=== PATIENT | female | born 1960 | race Caucasian/White ===

== ENCOUNTER 2020-11-24 19:41 | Emergency (ER) | payer BC, SELFPAY ==
--- NOTE | ~2020-11-24 | CT_ITS ---
EXAMINATION: CT abdomen pelvis w con DATE: 11/24/2020 22:51 INDICATION: Right lower quadrant abdominal pain TECHNIQUE: Computed tomography (CT) of the abdomen and pelvis was performed with 100 mL Omnipaque-350 intravenous contrast. Automated exposure control and iterative reconstruction technique were employe d. The dose-length product was 1036.64 mGy-cm. COMPARISON: 07/16/2014 FINDINGS: Mild atelectasis/scarring in the medial right middle lobe. Heart size is normal. No pericardial or pl eural effusion. Diffuse hepatic steatosis. No interval change in a 7 mm low-attenuation likely cyst i n the left hepatic lobe. Cholecystectomy clips at the gallbladder fossa. Spleen, pancreas, bilateral adrenal glands are normal. Regions of mild cortical scarring at both kidneys. Bilateral nonobstructin g nephrolithiasis including 7 stones in the left kidney, the largest measuring up to 4 mm, a 6 mm and 2 mm stones at the lower pole calyx of the right kidney and a couple additional small calcification at the periphery of a 2.1 cm cyst at the lower pole of the right kidney. There are few additional sma ller bilateral low-attenuation renal cysts. No hydronephrosis. Ureters and bladder are normal. Bowels including the appendix are normal. Small fat-containing umbilical hernia. Anteverted uterus and bila teral adnexa are unremarkable. No free intraperitoneal gas or fluid. No pathologically enlarged abdom inal or pelvic lymphadenopathy. Mild to moderate lumbar spondylosis. IMPRESSION: 1. No acute intra-abdominal/pelvic process. Normal appendix. 2. Bilateral nonobstructing nephrolithiasis. 3. Diffuse hepatic steatosis. Reviewed, dictated and finalized at location A.
[2020-11-24 19:43] VITALS: BP 151/114; PULSE 87; RESP 18; TEMP 36.8; O2SAT 100
[2020-11-24 20:46] LABS: Add Urine Microscopic? YES; Appearance Urine Clear (Clear); Bilirubin Urine Negative (Negative); Blood Urine Negative (Negative); Color Urine Yellow (Yellow); Glucose Urine UA Negative (Negative); Ketones Urine Negative (Negative); Leukocyte Esterase Ur Negative LEU/UL (Negative); Mucus Urine Rare /lpf; Nitrate Urine Negative (Negative); Protein Urine 1+ mg/dL (Negative); RBC Urine 0-2 /hpf (0-2); Specific Grav Ur 1.021 (1.001-1.035); Squamous Epithelial Cell Urine Rare /hpf (Few); Urobilinogen Urine Negative mg/dL (<2.0); WBC Urine 0-3 /hpf
[2020-11-24 20:49] LABS: Alanine Aminotransferase 50 U/L (4-35); Albumin Level 4.7 g/dL (3.5-5.1); Alkaline Phosphatase 137 U/L (38-126); Anion Gap 6 mmol/L (8-16); Aspartate Amino Transferase 53 U/L (14-36); Basophils Absolute Auto 0.1 K/mm3 (0.0-0.1); Basophils Percent Auto 0.9 % (0.2-1.2); Bilirubin,Total 0.5 mg/dL (0.2-1.3); Blood Urea Nitrogen 11 mg/dL (7-17); Calcium 9.5 mg/dL (8.4-10.2); Carbon Dioxide 35 mmol/L (22-30); Chloride 101 mmol/L (98-107); Eosinophils Absolute Auto 0.1 K/mm3 (0-0.3); Eosinophils Percent Auto 1.6 % (0-4.4); Estimated Glomerular Filt Rate > 60; Glucose 155 mg/dL (65-105); Hematocrit 46.2 % (37.0-47.0); Hemoglobin 15.4 g/dL (12.0-15.0); Immature Granulocyte Absolute 0.01 K/mm3 (0.00-0.031); Immature Granulocyte Percent A 0.2 % (0-0.5); Lipase 169 U/L (23-300); Lymphocytes Absolute Auto 1.59 K/mm3 (0.9-3.2); Lymphocytes Percent Auto 29.1 % (18.3-44.2); Mean Corpuscular HGB Conc 33.3 g/dl (32-36); Mean Corpuscular Hemoglobin 30.3 pg (26-34); Mean Corpuscular Volume 90.9 fl (80-100); Mean Platelet Volume 8.8 fl (7.4-10.4); Monocytes Absolute Auto 0.6 K/mm3 (0.1-0.6); Monocytes Percent Auto 11.4 % (2.6-8.5); Neutrophils Absolute Auto 3.1 K/mm3 (1.3-6.7); Neutrophils Percent Auto 56.8 % (45.5-73.1); Platelet Count Result 283 k/mm3 (150-375); Potassium 3.9 mmol/L (3.4-5.0); Red Blood Count 5.08 M/mm3 (4.2-5.4); Red Cell Distribution Width 12.9 % (11.5-14.5); Sodium 142 mmol/L (137-145); White Blood Count 5.5 K/mm3 (4.5-10.0)
[2020-11-24 21:52] VITALS: BP 178/85; PULSE 84; RESP 20; TEMP 36.8; O2SAT 99
[2020-11-24] MEDS: SODIUM CHLORIDE 0.9% IV 1,000 ML 999 ML IV CONT (22:19)
[2020-11-24] MEDS: ONDANSETRON INJ 4 MG/2 ML VIAL IV PUSH (22:20)
[2020-11-24 22:24] VITALS: BP 181/93; PULSE 79; RESP 12; O2SAT 100
--- NOTE | 2020-11-24 23:35 | ED.GENADULT ---
HPI - General Adult General Chief complaint: Abdominal Pain Stated complaint: right lower quadrant pain Time Seen by Provider: 11/24/20 21:35 History of Present Illness HPI narrative: Patient is a 60-year-old female presents to emergency department with chief complaint of right lower quadrant abdominal pain. The patient reports that the pain started approximately at midnight last night patient states that it is a little bit worse with movement not improved by anything patient reports a little bit of nausea no diarrhea no vomiting. Related Data Home Medications Medication Instructions Recorded Confirmed paroxetine HCl 20 mg tablet 20 mg PO DAILY 12/20/19 10/30/20 Allergies Allergy/AdvReac Type Severity Reaction Status Date / Time nitrofurantoin Allergy Mild rash Verified 10/30/20 08:02 prochlorperazine Allergy Mild Unknown Verified 10/30/20 08:02 Review of Systems Review of Systems: Narrative: A 10 system review of systems was completed on the patient and is negative except for what is stated in the HPI. Nursing and ancillary documentation was reviewed. 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 HEAD: Normocephalic, atraumatic. EYES: PERRLA and EOMI. ENT: Nares clear, no rhinorrhea or epistaxis. Mucous membranes moist. NECK: Supple. CHEST: Clear to auscultation. No respiratory distress. HEART: Regular rate and rhythm. No murmur heard. Normal peripheral pulses. ABDOMEN: Soft, nontender, nondistended, normal active bowel sounds. EXTREMITIES: Normal range of motion. No edema. SKIN: Warm, dry, no rash. NEURO: No focal deficits. Alert and oriented x3. PSYCH: Normal mood and affect. Course Course Emergency Course: Patient CT scan showed no evidence of acute abdomen Vital Signs Vital signs: Vital Signs Temperature 36.8 C 11/24/20 19:43 Pulse Rate 87 11/24/20 19:43 Respiratory Rate 18 11/24/20 19:43 Blood Pressure 151/114 H 11/24/20 19:43 Pulse Oximetry 100 11/24/20 19:43 Temperature 36.8 C 11/24/20 21:52 Pulse Rate 79 11/24/20 22:24 Respiratory Rate 12 11/24/20 22:24 Blood Pressure 181/93 H 11/24/20 22:24 Pulse Oximetry 100 11/24/20 22:24 Medical Decision Making Vital Signs Vital Signs: Vital Signs Temperature 36.8 C 11/24/20 19:43 Pulse Rate 87 11/24/20 19:43 Respiratory Rate 18 11/24/20 19:43 Blood Pressure 151/114 H 11/24/20 19:43 Pulse Oximetry 100 11/24/20 19:43 Temperature 36.8 C 11/24/20 21:52 Pulse Rate 79 11/24/20 22:24 Respiratory Rate 12 11/24/20 22:24 Blood Pressure 181/93 H 11/24/20 22:24 Pulse Oximetry 100 11/24/20 22:24 Lab Data Result diagrams: 11/24/20 20:30 11/24/20 20:30 Labs: Lab Results 11/24/20 11/24/20 11/24/20 Range/Units 20:30 20:30 20:35 WBC 5.5 (4.5-10.0) K/mm3 RBC 5.08 (4.2-5.4) M/mm3 Hgb 15.4 H (12.0-15.0) g/dL Hct 46.2 (37.0-47.0) % MCV 90.9 (80-100) fl MCH 30.3 (26-34) pg MCHC 33.3 (32-36) g/dl RDW 12
[2020-11-24 23:40] VITALS: BP 125/74; PULSE 84; RESP 13; O2SAT 96
== END 2020-11-24 23:40 | disposition home or self-care (01) ==
PROVIDERS: Emergency Medicine; Emergency Provider Emergency Medicine; PCP Family Medicine
DX: R10.31 Right lower quadrant pain (principal)
CPT/HCPCS: 36415; 74177; 80053; 81001; 83690; 85025; 96361; 96374; 99284; J2405; J7030; Q9967

== ENCOUNTER 2021-04-03 01:40 | Day surgery (SDC) | payer BC, SELFPAY ==
[2021-03-25 14:19] VITALS: BMI 30.8
[2021-04-03 06:38] VITALS: BP 133/51; PULSE 75; RESP 18; TEMP 36.1; O2SAT 100; BMI 31.1
[2021-04-03] MEDS: LACTATED RINGERS 1,000 ML 150 ML IV CONT (06:53)
[2021-04-03 06:56] LABS: Glucose Point of Care 190 mg/dl (65-105)
--- NOTE | 2021-04-03 07:09 | WPDANESEPPF ---
Anes - Initial Pre Proc Eval Procedure: Operation Date: 04/03/21 07:30 Proposed Procedures p Screening Colonoscopy - Robles Carcamo MD Date/Time: 04/03/21 07:09 Surgeon: Robles Carcamo MD Pre Op Diagnosis: neoplasm screening Patient Data Age: 60 Gender: F Height: 1.65 m Weight: 84.8 kg Last Vital Signs Temp 97 F L 04/03/21 06:38 Pulse 75 04/03/21 06:38 Resp 18 04/03/21 06:38 BP 133/51 L 04/03/21 06:38 Pulse Ox 100 04/03/21 06:38 Allergies Allergy/AdvReac Type Severity Reaction Status Date / Time nitrofurantoin Allergy Mild rash Verified 04/03/21 06:36 prochlorperazine Allergy Mild Unknown Verified 04/03/21 06:36 Home Medications Medication Instructions Recorded Confirmed Type paroxetine HCl 20 mg tablet 20 mg PO DAILY 12/20/19 04/03/21 History meloxicam 15 mg tablet 15 mg PO DAILY #90 tablet 05/05/20 04/03/21 Rx propranolol 120 mg capsule,24 120 mg PO DAILY #90 cap 12/29/20 04/03/21 Rx hr,extended release metformin 500 mg tablet,extended See Rx Instructions .ROUTE 01/19/21 04/03/21 Rx release 24 hr .COMPLEX #180 tablet simvastatin 40 mg tablet 40 mg PO DAILY #90 tablet 03/11/21 04/03/21 Rx zolpidem 5 mg tablet 5 mg PO .QHS #30 tablet 03/23/21 03/25/21 Rx iron 1 tablet PO DAILY 03/25/21 03/25/21 History multivitamin 1 tablet PO DAILY 03/25/21 04/03/21 History risankizumab-rzaa [Skyrizi] 150 mg SUBCUT Q3M 03/25/21 03/25/21 History sumatriptan succinate See Rx Instructions PO .COMPLEX PRN 03/25/21 03/25/21 History Laboratory Tests 04/03/21 06:49 POC Capillary Glucose 190 mg/dl H mg/dl (65-105) Patient hx anesthesia problems: none Family hx anesthesia problems: none PMFSH Past Medical History Medical History Acute arthritis BMI 31.0-31.9,adult Diabetes Diabetes Family History Family History Father Hypertension Acute myocardial infarction Mother Hypertension Cerebrovascular accident Family history of diabetes mellitus in first degree relative Family history of malignant neoplasm of breast in first degree relative Acute myocardial infarction Sibling Family history of Hodgkin's lymphoma Social History Social History Smoking status: Never smoker Second hand tobacco smoke exposure: No Alcohol intake: never Substance use: never Substance use type: does not use Living arrangements: with family 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 Questions were solicited and answers provided to the satisfaction of the patient/family/POA.
--- NOTE | 2021-04-03 07:24 | P.HP_ITS ---
History of Present Illness History of Present Illness Consent: Risks, benefits, and alternatives have been discussed and questions answered. Patient agrees to proceed with procedure. Chief complaint: neoplasm screening Narrative: Marce Loyd is a 60 year old female referred for colon cancer screening. Her last colonoscopy was about 10 years ago Review of Systems Review of Systems: All systems reviewed & are unremarkable except as noted in HPI and below PMFSH Past Medical History Medical History Acute arthritis BMI 31.0-31.9,adult Diabetes Diabetes Family History Family History Father Hypertension Acute myocardial infarction Mother Hypertension Cerebrovascular accident Family history of diabetes mellitus in first degree relative Family history of malignant neoplasm of breast in first degree relative Acute myocardial infarction Sibling Family history of Hodgkin's lymphoma Social History Social History Smoking status: Never smoker Second hand tobacco smoke exposure: No Alcohol intake: never Substance use: never Substance use type: does not use Living arrangements: with family 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 Spiritual care concerns: No Meds Home Medications and Allergies Home Medications Medication Instructions Recorded Confirmed Type paroxetine HCl 20 mg tablet 20 mg PO DAILY 12/20/19 04/03/21 History meloxicam 15 mg tablet 15 mg PO DAILY #90 tablet 05/05/20 04/03/21 Rx propranolol 120 mg capsule,24 120 mg PO DAILY #90 cap 12/29/20 04/03/21 Rx hr,extended release metformin 500 mg tablet,extended See Rx Instructions .ROUTE 01/19/21 04/03/21 Rx release 24 hr .COMPLEX #180 tablet simvastatin 40 mg tablet 40 mg PO DAILY #90 tablet 03/11/21 04/03/21 Rx zolpidem 5 mg tablet 5 mg PO .QHS #30 tablet 03/23/21 03/25/21 Rx iron 1 tablet PO DAILY 03/25/21 03/25/21 History multivitamin 1 tablet PO DAILY 03/25/21 04/03/21 History risankizumab-rzaa [Skyrizi] 150 mg SUBCUT Q3M 03/25/21 03/25/21 History sumatriptan succinate See Rx Instructions PO .COMPLEX PRN 03/25/21 03/25/21 History Allergies Allergy/AdvReac Type Severity Reaction Status Date / Time nitrofurantoin Allergy Mild rash Verified 04/03/21 06:36 prochlorperazine Allergy Mild Unknown Verified 04/03/21 06:36 Vital Signs Vital Signs - 24 hr 04/03/21 06:38 Temperature 36.1 C L Pulse Rate 75 Respiratory Rate 18 Blood Pressure 133/51 L Pulse Oximetry 100 Exam Resp: Auscultation: clear to auscultation bilaterally Cardio: Rate: regular rate Rhythm: regular rhythm GI: GI Palp: Yes Soft to palpation and No Tenderness to palpation present (GI) Assessment and Plan Assessment and plan (1) Colon cancer screening: Code(s): Z12.11 - Encounter for screening for malignant neoplasm of colon Status: Acute Assessment and Plan: Colonoscopy with possible biopsy or polypectomy or cautery or injection of substances.
[2021-04-03 07:45] VITALS: BP 91/51; PULSE 68; RESP 16; O2SAT 99
[2021-04-03 07:55] VITALS: BP 112/54; PULSE 75; RESP 18; O2SAT 100
[2021-04-03 08:05] VITALS: BP 124/74; PULSE 78; RESP 16; O2SAT 100
== END 2021-04-03 08:15 | disposition home or self-care (01) ==
PROVIDERS: PCP Family Medicine; Visit Provider Internal Medicine Gastroenterology
PROC: 0DJD8ZZ Inspection of Lower Intestinal Tract, Via Natural or Artificial Opening Endoscopic (ICD-10-PCS; CPT 45378; principal; 2021-04-03 07:30)
DX: Z12.11 Encounter for screening for malignant neoplasm of colon (principal); E11.9 Type 2 diabetes mellitus without complications
CPT/HCPCS: 45380; 82948; 88305; J2704; J7120

== ENCOUNTER 2021-04-22 18:14 | Emergency (ER) | payer BC, SELFPAY ==
[2021-04-22 18:24] VITALS: BP 130/102; PULSE 81; RESP 18; TEMP 36.4; O2SAT 100
--- NOTE | 2021-04-22 18:36 | ED.FEMALEGU ---
HPI - Female Genitourinary General Chief complaint: Urogenital-Female Stated complaint: uti Source: patient and RN notes reviewed Limitations: no limitations History of Present Illness HPI Narrative: The overweight patient, previously on several meds inc for diabetes, presents with urinary symptoms. Patient states she was treated earlier in the year for Proteus UTI, pansensitive [except Macrobid] . She now has shorter 1 day history of urinary frequency and dysuria; no fever, low back pain, blood, vomiting/diarrhea, urgency, vaginal discharge. She has a prior history of left kidney stone with stent intervention; Patient notes this feels different than that. Symptoms are mild, worse with micturition Related Data Home Medications Medication Instructions Recorded Confirmed paroxetine HCl 20 mg tablet 20 mg PO DAILY 12/20/19 04/03/21 Skyrizi 150 mg SUBCUT Q3M 03/25/21 03/25/21 iron 1 tablet PO DAILY 03/25/21 03/25/21 multivitamin 1 tablet PO DAILY 03/25/21 04/03/21 sumatriptan succinate See Rx Instructions PO .COMPLEX PRN 03/25/21 03/25/21 Allergies Allergy/AdvReac Type Severity Reaction Status Date / Time nitrofurantoin Allergy Mild rash Verified 04/03/21 06:36 prochlorperazine Allergy Mild Unknown Verified 04/03/21 06:36 Review of Systems Review of Systems: General/Constitutional: No weight loss,fever Eyes: N0: Redness,discharge Ears/Nose/Throat: No: Epistaxis,ear discharge Respiratory: Denies: Hemoptysis Gastrointestinal: No Vomiting, Bleeding-rectal Skin: No Lumps, eruption Neurologic: No Focal Weakness,Sz Hematologic: Denies: Petechiae/Purpura Psychiatric: No: Suicida ideationl All Other Systems: Reviewed and Negative [facility] Past Medical History Medical History Acute arthritis BMI 31.0-31.9,adult Diabetes Diabetes Family History Family History Father Hypertension Acute myocardial infarction Mother Hypertension Cerebrovascular accident Family history of diabetes mellitus in first degree relative Family history of malignant neoplasm of breast in first degree relative Acute myocardial infarction Sibling Family history of Hodgkin's lymphoma Social History Social History Smoking status: Never smoker Second hand tobacco smoke exposure: No Alcohol intake: never Substance use: never Substance use type: does not use 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 There is no relevant family history pertinent to the presenting complaint Exam Narrative: General Appearance: Well appearing, No distress EYE: PERRLA, Conjunctiva clear Ears: External ear normal Nose: Normal nose Mouth/Throat: Normal appearing, Normal lips Neck: Supple Respiratory: Airway patent, No respiratory distress Cardiovascular: RRR Abdomen: Soft, Non-tender, Musculoskeletal: Full ROM Skin: Warm, Dry Neurological: A&O x3, CN II-X intact Psychiatric: Normal mood, Normal affect Course Vital Signs Vital signs: Vital Signs Temperature 97.5 F L 04/22/21 18:24 Pulse Rate 81 04/22/21 18:24 Respiratory Rate 18 04/22/21 18:24 Blood Pressure 130/102 H 04/22/21 18:24 Pulse Oximetry 100 04/22/21 18:24 Temperature 97.5 F L 04/22/21 18:24 Pulse Rate 81 04/22/21 18:24 Respiratory Rate 18 04/22/21 18:24 Blood Pressure 130/102 H 04/22/21 18:24 Pulse Oximetry 100 04/22/21 18:24 MDM - Female Genitourinary Lab Data Labs: Urine Glucose Negative Reference Range: Negative Urine Bilirubin Negative Reference Ran
== END 2021-04-22 18:43 | disposition home or self-care (01) ==
PROVIDERS: Emergency Provider Emergency Medicine; PCP Family Medicine
DX: N39.0 Urinary tract infection, site not specified (principal); E11.9 Type 2 diabetes mellitus without complications
CPT/HCPCS: 81003; 87077; 87086; 87088; 87186; 99213; G0463

== ENCOUNTER 2021-06-06 16:13 | Emergency (ER) | payer BC, SELFPAY ==
[2021-06-06 16:33] VITALS: BP 153/86; PULSE 83; RESP 18; TEMP 36.3; O2SAT 99
--- NOTE | 2021-06-06 17:06 | ED.FEMALEGU ---
HPI - Female Genitourinary General Chief complaint: Urogenital-Female Stated complaint: UTI Source: patient Mode of arrival: ambulatory Limitations: no limitations History of Present Illness HPI Narrative: Patient is a 60-year-old female who presents complaining of urinary frequency, urgency and dysuria starting this a.m. She reports a history of kidney stones as well as UTIs. She reports last UTI was 6+ months ago. She denies nausea, vomiting, or abdominal pain. She denies all other complaints at this time. MD elicited complaint: UTI Related Data Home Medications Medication Instructions Recorded Confirmed paroxetine HCl 20 mg tablet 20 mg PO DAILY 12/20/19 06/06/21 Skyrizi 150 mg SUBCUT Q3M 03/25/21 06/06/21 iron 1 tablet PO DAILY 03/25/21 06/06/21 multivitamin 1 tablet PO DAILY 03/25/21 06/06/21 Allergies Allergy/AdvReac Type Severity Reaction Status Date / Time nitrofurantoin Allergy Mild rash Verified 06/06/21 16:55 prochlorperazine Allergy Mild Unknown Verified 06/06/21 16:55 Review of Systems Review of Systems: CONSTITUTIONAL: Denies fever, chills, or sweats. EYES: Denies visual changes, redness, or discharge. ENT: Denies rhinorrhea, congestion, sore throat, or otalgia. CARDIOVASCULAR: Denies chest pain, palpitations, or edema. RESPIRATORY: Denies cough or dyspnea. GASTROINTESTINAL: Denies abdominal pain, nausea, vomiting, or diarrhea. GENITOURINARY: Reports dysuria, frequency and urgency SKIN: Denies rash or itching. MUSCULOSKELETAL: Denies back pain, joint pain, or myalgia. NEUROLOGIC: Denies headache, numbness, dizziness, or weakness. PSYCHIATRIC: Denies anxiety or depression. [facility] Past Medical History Medical History Acute arthritis BMI 31.0-31.9,adult Diabetes Diabetes Family History Family History Father Hypertension Acute myocardial infarction Mother Hypertension Cerebrovascular accident Family history of diabetes mellitus in first degree relative Family history of malignant neoplasm of breast in first degree relative Acute myocardial infarction Sibling Family history of Hodgkin's lymphoma Social History Social History Second hand tobacco smoke exposure: No Alcohol intake: never Substance use: never Substance use type: does not use 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 Please see nursing chart for further information. There is no relevant family history pertinent to the presenting complaint. Exam Narrative: GENERAL: Well-appearing, well-nourished, and in no acute distress. HEAD: Normocephalic, atraumatic. EYES: EOMI. No redness or drainage. Conjunctiva are normal. ENT: Mucous membranes pink and moist. CHEST: No respiratory distress. HEART: Regular rate and rhythm. GI: Soft, nontender without rebound, or guarding. EXTREMITIES: Normal range of motion. SKIN: Warm, dry, no rash. NEURO: No focal deficits. Alert and oriented x3. Gait steady. PSYCH: Normal affect. No signs of depression or anxiety. Course Vital Signs Vital signs: Vital Signs Temperature 36.3 C L 06/06/21 16:33 Pulse Rate 83 06/06/21 16:33 Respiratory Rate 18 06/06/21 16:33 Blood Pressure 153/86 H 06/06/21 16:33 Pulse Oximetry 99 06/06/21 16:33 Temperature 36.3 C L 06/06/21 16:33 Pulse Rate 83 06/06/21 16:33 Respiratory Rate 18 06/06/21 16:33 Blood Pressure 153/86 H 06/06/21 16:33 Pulse Oximetry 99 06/06/21 16:33 Reviewed-patient is informed that they may have pre-hypertension or hypertension based on a blood pressure reading. I recommend the patient call the
== END 2021-06-06 17:18 | disposition home or self-care (01) ==
PROVIDERS: Emergency Provider Nurse Practitioner; PCP Family Medicine
DX: N39.0 Urinary tract infection, site not specified (principal); E11.9 Type 2 diabetes mellitus without complications; M19.90 Unspecified osteoarthritis, unspecified site
CPT/HCPCS: 81003; 87077; 87086; 87088; 87186; 99213; G0463

== ENCOUNTER 2021-07-27 07:42 | Emergency (ER) | payer BC, SELFPAY ==
--- NOTE | ~2021-07-27 | CT_ITS ---
EXAMINATION: CT abdomen pelvis w con EXAM DATE: 07/27/2021 09:10 INDICATION: Flank pain, n/v . TECHNIQUE: Spiral CT of the abdomen and pelvis was performed following intravenous injection of 100 m L Omnipaque 350. Axial, coronal and sagittal images of the abdomen and pelvis were reviewed. The do se-length product (DLP) for this examination was 1105.27 mGy-cm. The exposure was tailored according to patient size (auto mA exposure control), and iterative reconstruction (ASIR) was used as addition al dose reduction technique. Comparison is made to prior examination from 11/24/2020. FINDINGS: There is a 5 mm stone in the distal aspect of the left ureter, 1 cm from the ureterovesicul ar junction. There is mild left-sided obstructive nephropathy. Bilateral kidney stones up to about 8 mm on the right and 6 mm on the left. There is hepatic steatosis without suspicious focal lesion rabia ntified. Spleen, adrenal glands, pancreas are unremarkable. There is a 1 cm left liver lobe cyst. Th ere are cholecystectomy clips. The uterus is unremarkable. The bladder is unremarkable. There i s no retroperitoneal or pelvic lymphadenopathy. There is mild scattered arteriosclerotic disease. The appendix is normal. The stomach and small bowel are unremarkable. There is colonic fluid, corre late for diarrhea. No free intraperitoneal gas. The heart is normal in size. There are no perica rdial or pleural effusions. The lung bases are unremarkable. There are no osteoblastic or osteolyti c lesions identified. 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 IMPRESSION: 1. Left distal ureteral 5 mm stone, mild obstructive nephropathy. Recommend KUB. 2. Colonic fluid, possible diarrhea. 3. Bilateral nephrolithiasis. 4. Hepatic steatosis. Reviewed, dictated and finalized at location B. OUT DRAFTER IMPRESSION: 1. Left distal ureteral 5 mm stone, mild obstructive nephropathy. Recommend KU B. 2. Colonic fluid, possible diarrhea. 3. Bilateral nephrolithiasis. 4. Hepatic steatosis.
--- NOTE | ~2021-07-27 | XR_ITS ---
EXAMINATION: XR abdomen/kub 1V EXAM DATE: 07/27/2021 09:59 INDICATION: Left ureteral stone. TECHNIQUE: Frontal projection of the upper abdomen, frontal projection lower abdomen/pelvis for inter pretation. There is no prior study for comparison. FINDINGS: Bilateral nephrograms, delayed and more pronounced on the left. Multiple left sided pelvic calcifications, medialmost could be the distal ureteral [address] stone identified on CT. Bilateral nephr olithiasis may also be visible but obscured by the contrast. There are cholecystectomy clips. Mild to moderate bony degenerative changes. Nonobstructive bowel gas pattern. IMPRESSION: Possible identification distal left ureteral stone. Reviewed, dictated and finalized at location B. KJACK [employer]PERVIS[employer]
[2021-07-27 08:00] VITALS: BP 217/109; PULSE 74; RESP 18; TEMP 36.3; O2SAT 98
[2021-07-27 08:11] LABS: Basophils Absolute Auto 0.1 K/mm3 (0.0-0.1); Basophils Percent Auto 0.8 % (0.2-1.2); Eosinophils Absolute Auto 0.2 K/mm3 (0-0.3); Eosinophils Percent Auto 2.3 % (0-4.4); Hematocrit 44.6 % (37.0-47.0); Hemoglobin 15.3 g/dL (12.0-15.0); Immature Granulocyte Absolute 0.02 K/mm3 (0.00-0.031); Immature Granulocyte Percent A 0.3 % (0-0.5); Lymphocytes Absolute Auto 1.72 K/mm3 (0.9-3.2); Lymphocytes Percent Auto 22.2 % (18.3-44.2); Mean Corpuscular HGB Conc 34.3 g/dl (32-36); Mean Corpuscular Hemoglobin 31.2 pg (26-34); Mean Platelet Volume 9.4 fl (7.4-10.4); Monocytes Absolute Auto 0.9 K/mm3 (0.1-0.6); Monocytes Percent Auto 11.7 % (2.6-8.5); Neutrophils Absolute Auto 4.9 K/mm3 (1.3-6.7); Neutrophils Percent Auto 62.7 % (45.5-73.1); Platelet Count Result 228 k/mm3 (150-375); Red Cell Distribution Width 12.9 % (11.5-14.5); White Blood Count 7.8 K/mm3 (4.5-10.0)
--- NOTE | 2021-07-27 08:14 | ED.ABDPAIN ---
HPI - Abdominal Pain General Chief Complaint: Nausea/Vomiting/Diarrhea Stated Complaint: vomiting/urinary sx Time Seen by Provider: 07/27/21 08:06 Source: patient Mode of arrival: ambulatory Limitations: no limitations History of Present Illness HPI narrative: Patient is a 61-year-old female complaining of left lower quadrant pain, 6 out of 10, sharp, nonradiating, 8 by nausea and vomiting that started this morning. Patient denies any chest pain, shortness of breath, diarrhea, urinary symptoms, fever or chills. Related Data Home Medications Medication Instructions Recorded Confirmed paroxetine HCl 20 mg tablet 20 mg PO DAILY 12/20/19 06/06/21 Skyrizi 150 mg SUBCUT Q3M 03/25/21 06/06/21 iron 1 tablet PO DAILY 03/25/21 06/06/21 multivitamin 1 tablet PO DAILY 03/25/21 06/06/21 Allergies Allergy/AdvReac Type Severity Reaction Status Date / Time nitrofurantoin Allergy Mild rash Verified 06/06/21 16:55 prochlorperazine Allergy Mild Unknown Verified 06/06/21 16:55 Review of Systems Review of Systems: All systems reviewed & are unremarkable except as noted in HPI and below Constitutional: Constitutional: Denies body ache(s), Denies chills, Denies excessive sweating, Denies fatigue, Denies fever(s), Denies headache(s), Denies lethargy, Denies malaise, Denies weakness and Denies weight loss Eyes: Eyes: Denies blurry vision, Denies change in vision and Denies loss of vision ENT: Denies dizziness, Denies ear discharge, Denies headache(s), Denies lip swelling, Denies epistaxis, Denies nasal congestion, Denies neck pain, Denies throat swelling and Denies tongue swelling Cardiovascular: Cardiovascular: Denies chest pain, Denies chest pain at rest, Denies chest pain with activity, Denies diaphoresis, Denies rapid heart rate, Denies edema, Denies irregular heart rhythm, Denies lightheadedness, Denies palpitations, Denies dyspnea and Denies dyspnea on exertion Respiratory: Respiratory: Denies chest congestion, Denies cough, Denies hemoptysis, Denies dyspnea and Denies dyspnea on exertion Gastrointestinal: Gastrointestinal: Denies melena, Denies hematochezia, Denies diarrhea and Denies hematemesis Musculoskeletal: Musculoskeletal: Denies abnormal gait, Denies deformity, Denies joint swelling, Denies limited range of motion, Denies neck pain and Denies numbness Neurologic: Denies Abnormal speech present, Denies abnormal gait, Denies confusion, Denies dizziness, Denies headache(s), Denies focal weakness, Denies loss of vision, Denies numbness, Denies Other visual disturbances, Denies Sensory deficit (Neuro) and Denies weakness Psychiatric: Psychiatric: Denies confusion, Denies depression, Denies auditory hallucinations, Denies homicidal ideation and Denies suicidal ideation Endocrine: Endocrine: Denies cold intolerance, Denies excessive sweating, Denies fatigue, Denies heat intolerance and Denies palpitations Hematologic/Lymphatic: Hematologic/Lymphatic: Denies easy bleeding and Denies easy bruising Allergic/Immunologic: Allergic/Immunologic: Denies lip swelling, Denies throat swelling and Denies tongue swelling PMFSH Past Medical History Medical History Acute arthritis BMI 31.0-31.9,adult Diabetes Diabetes Family History Family History Father Hypertension Acute myocardial infarction Mother Hypertension Cerebrovascular accident Family history of diabetes mellitus in first degree relative Family history of malignant neoplasm of breast in first degree relative Acute myocardial infarction Sibling Family history of Hodgkin's lymphoma Social History Social History Second hand tobacco smoke exposure: No Alcohol intake: never Substance use: never Substance use type: does not use 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
[2021-07-27 08:21] LABS: Add Urine Microscopic? YES; Appearance Urine Clear (Clear); Bilirubin Urine Negative (Negative); Blood Urine Negative (Negative); Color Urine Straw (Yellow); Glucose Urine UA 3+ mg/dL (Negative); Ketones Urine Negative (Negative); Leukocyte Esterase Ur Negative LEU/UL (Negative); Mucus Urine Rare /lpf; Nitrate Urine Negative (Negative); Protein Urine 2+ mg/dL (Negative); Specific Grav Ur 1.009 (1.001-1.035); Squamous Epithelial Cell Urine Rare /hpf (Few); Urobilinogen Urine Negative mg/dL (<2.0); WBC Urine 0-3 /hpf
[2021-07-27 08:22] LABS: Alanine Aminotransferase 42 U/L (4-35); Albumin Level 4.7 g/dL (3.5-5.1); Alkaline Phosphatase 129 U/L (38-126); Anion Gap 13 mmol/L (8-16); Aspartate Amino Transferase 41 U/L (14-36); Bilirubin,Total 0.7 mg/dL (0.2-1.3); Blood Urea Nitrogen 19 mg/dL (7-17); Calcium 9.2 mg/dL (8.4-10.2); Carbon Dioxide 25 mmol/L (22-30); Chloride 102 mmol/L (98-107); Estimated CRCL calculation 77 ml/min; Estimated Glomerular Filt Rate > 60; Glucose 270 mg/dL (65-110); Lipase 214 U/L (23-300); Potassium 3.9 mmol/L (3.4-5.0); Sodium 140 mmol/L (137-145)
[2021-07-27] MEDS: ONDANSETRON INJ 4 MG/2 ML VIAL IV PUSH (08:22)
[2021-07-27] MEDS: LABETALOL HCL INJ 100 MG/20 ML VIAL 20 MG IV PUSH (08:22)
[2021-07-27 09:34] VITALS: BP 164/117; PULSE 82; RESP 19; O2SAT 97
[2021-07-27] MEDS: KETOROLAC 30 MG/ML VIAL (*BKC) IV PUSH (09:36)
[2021-07-27] MEDS: TAMSULOSIN HCL 0.4 MG CAPSULE PO (10:02)
[2021-07-27 10:12] VITALS: BP 169/107; PULSE 78; RESP 17; O2SAT 100
== END 2021-07-27 10:17 | disposition home or self-care (01) ==
PROVIDERS: Emergency Provider Emergency Medicine; PCP Family Medicine
DX: N13.2 Hydronephrosis with renal and ureteral calculous obstruction (principal); N13.8 Other obstructive and reflux uropathy; I16.0 Hypertensive urgency; E11.9 Type 2 diabetes mellitus without complications
CPT/HCPCS: 36415; 74018; 74177; 80053; 81001; 83690; 85025; 96374; 96375; 99284; A9270; J1885; J2405; Q9967

== ENCOUNTER 2021-10-13 10:12 | Emergency (ER) | payer BC, SELFPAY ==
[2021-10-13 10:41] VITALS: BP 149/72; PULSE 80; RESP 16; TEMP 36.3; O2SAT 97
--- NOTE | 2021-10-13 10:46 | ED.URI ---
HPI - URI/Sore Throat General Chief Complaint: Upper Respiratory Infection Stated Complaint: sorethroat,congestion Time Seen by Provider: 10/13/21 11:31 Source: patient and RN notes reviewed Mode of arrival: ambulatory Limitations: no limitations History of Present Illness HPI Narrative: 61-year-old female presents with concern for 5-day history of cough, nasal congestion, rhinorrhea. Reports she has been taking [id number] medications without relief. She denies shortness of breath, fever, body aches, chills, sweats MD elicited complaint: cough, rhinorrhea and nasal congestion Related Data Home Medications Medication Instructions Recorded Confirmed paroxetine HCl 20 mg tablet 20 mg PO DAILY 12/20/19 10/13/21 Allergies Allergy/AdvReac Type Severity Reaction Status Date / Time nitrofurantoin Allergy Mild rash Verified 10/13/21 11:37 prochlorperazine Allergy Mild Unknown Verified 10/13/21 11:37 Review of Systems Review of Systems: CONSTITUTIONAL: Denies malaise, chills, sweats, or fever. EYES: Denies visual changes, redness, or discharge. ENT: Reports rhinorrhea, congestion. Denies sinus pain, otalgia and sore throat. CARDIOVASCULAR: Denies chest pain, palpitations, or edema. RESPIRATORY: Reports cough. Denies dyspnea. GASTROINTESTINAL: Denies abdominal pain, nausea, vomiting, diarrhea SKIN: Denies rash or itching. MUSCULOSKELETAL: Denies myalgia. NEUROLOGIC: Denies headache. All systems reviewed & are unremarkable except as noted in HPI and below PMFSH Past Medical History Medical History Acute arthritis BMI 31.0-31.9,adult Diabetes Diabetes Family History Family History Father Hypertension Acute myocardial infarction Mother Hypertension Cerebrovascular accident Family history of diabetes mellitus in first degree relative Family history of malignant neoplasm of breast in first degree relative Acute myocardial infarction Sibling Family history of Hodgkin's lymphoma Social History Social History Second hand tobacco smoke exposure: No Alcohol intake: never Substance use: never Substance use type: does not use 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 There is no relevant family history pertinent to the presenting complaint Exam Narrative: GENERAL: Well-appearing, well-nourished, and in no acute distress. HEAD: Normocephalic EYES: PERRLA, conjunctivae clear ENT: Nares clear, turbinates edematous and erythematous, clear discharge. Mucous membranes moist. TM pearly valdivia with dull light reflex bilaterally; no tragal tenderness. Oropharynx not erythematous without lesions. Tonsils not enlarged and without exudate, no drooling, no hoarseness, no trismus, uvula midline. NECK: Supple. No lymphadenopathy CHEST: Clear to auscultation, breath sounds equal. No wheezing, rhonchi, rales, or stridor. No respiratory distress, speaks in full sentences. HEART: Regular rate and rhythm. No murmur heard. SKIN: Warm, dry, no rash. NEURO: Alert and oriented x3. PSYCH: Normal mood and affect Course Course Emergency Course: Patient is aware of diagnosis, understands and agrees to treatment plan. Anticipatory guidance given. Patient agrees to follow-up as directed and is aware of reasons to seek care at the emergency department. Portions of this record may have been created with voice recognition software Level of Care: Express Care Visit Vital Signs Vital signs: Vital Signs Temperature 97.4 F L 10/13/21 10:41 Pulse Rate 80 10/13/21 10:41 Respiratory Rate 16 10/13/21 10:41 Blood Pressure 149/72 H 10/13/21 10:41 Pulse Oximetry 97 10/13/21 1
== END 2021-10-13 11:50 | disposition home or self-care (01) ==
PROVIDERS: Emergency Provider Nurse Practitioner; PCP Family Medicine
DX: J06.9 Acute upper respiratory infection, unspecified (principal); M19.90 Unspecified osteoarthritis, unspecified site; E11.9 Type 2 diabetes mellitus without complications
CPT/HCPCS: 99213; G0463

== ENCOUNTER 2021-12-15 18:08 | Emergency (ER) | payer BC, SELFPAY ==
--- NOTE | 2021-12-15 18:18 | ED.FEMALEGU ---
HPI - Female Genitourinary General Chief complaint: Urogenital-Female Stated complaint: Possible Uti,Body Aches,Chills Time Seen by Provider: 12/15/21 18:54 Source: patient and RN notes reviewed Mode of arrival: ambulatory Limitations: no limitations History of Present Illness HPI Narrative: 61-year-old female presents concern for dysuria, urgency, frequency, suprapubic pain and right low back pain. Reports body aches, nausea, chills. She denies vomiting, fever. She reports she is taken Tylenol for her symptoms. She denies abnormal vaginal discharge or bleeding. MD elicited complaint: UTI Related Data Home Medications Medication Instructions Recorded Confirmed paroxetine HCl 20 mg tablet 20 mg PO DAILY 12/20/19 12/15/21 sumatriptan succinate 50 mg PO DIRECTED 12/15/21 12/15/21 Allergies Allergy/AdvReac Type Severity Reaction Status Date / Time nitrofurantoin Allergy Mild rash Verified 12/15/21 18:47 prochlorperazine Allergy Mild Unknown Verified 12/15/21 18:47 Review of Systems Review of Systems: CONSTITUTIONAL: Reports malaise, chills. Denies sweats, or fever. CARDIOVASCULAR: Denies chest pain, palpitations, or edema. RESPIRATORY: Denies cough or dyspnea. GASTROINTESTINAL: Denies abdominal pain, nausea, vomiting, diarrhea GENITOURINARY: Reports dysuria, frequency, urgency, suprapubic pressure, right flank pain SKIN: Denies rash or itching. MUSCULOSKELETAL: Reports myalgia. All systems reviewed & are unremarkable except as noted in HPI and below PMFSH Past Medical History Medical History Acute arthritis BMI 31.0-31.9,adult Diabetes Diabetes Family History Family History Father Hypertension Acute myocardial infarction Mother Hypertension Cerebrovascular accident Family history of diabetes mellitus in first degree relative Family history of malignant neoplasm of breast in first degree relative Acute myocardial infarction Sibling Family history of Hodgkin's lymphoma Social History Social History Second hand tobacco smoke exposure: No Alcohol intake: never Substance use: never Substance use type: does not use 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 There is no relevant family history pertinent to the presenting complaint Exam Narrative: GENERAL: Well-appearing, well-nourished, and in no acute distress. HEAD: Normocephalic. EYES: PERRLA, conjunctivae clear. NECK: Supple. No lymphadenopathy CHEST: Clear to auscultation. No respiratory distress. HEART: Regular rate and rhythm. ABDOMEN: Soft, nontender upon palpation, nondistended, normal active bowel sounds, no palpable or pulsatile masses, no guarding. Right CVA tenderness SKIN: Warm, dry, no rash. NEURO: Alert and oriented x3. PSYCH: Normal mood and affect Course Course Emergency Course: Patient is aware of diagnosis, understands and agrees to treatment plan. Anticipatory guidance given. Patient agrees to follow-up as directed and is aware of reasons to seek care at the emergency department. Portions of this record may have been created with voice recognition software Level of Care: Express Care Visit Vital Signs Vital signs: Reviewed. MDM - Female Genitourinary MDM Narrative Medical decision making narrative: Exam findings and UA show no acute concerns or changes; patient is non-toxic appearing and is in no distress. Patient is appropriate for outpatient treatment and follow-up. Differential Diagnosis Differential diagnosis: Likely urinary tract infection and cystitis Critical Care Time Critical Care Time Critical Care Time: No Discharge Plan Discharge Clinic
[2021-12-15 18:38] VITALS: BP 152/88; PULSE 102; RESP 18; TEMP 37.1; O2SAT 99
== END 2021-12-15 19:05 | disposition home or self-care (01) ==
PROVIDERS: Emergency Provider Nurse Practitioner; PCP Family Medicine
DX: N39.0 Urinary tract infection, site not specified (principal); E11.9 Type 2 diabetes mellitus without complications; M19.90 Unspecified osteoarthritis, unspecified site
CPT/HCPCS: 81003; 87077; 87086; 87186; 99213; G0463

== ENCOUNTER 2022-03-18 22:17 | Emergency (ER) | payer BC, SELFPAY ==
--- NOTE | ~2022-03-18 | CT_ITS ---
EXAMINATION: CT brain wo con DATE: 03/18/2022 22:45 INDICATION: Right arm numbness. Neck pain. TECHNIQUE: Computed tomography (CT) of the head was performed without intravenous contrast. The mA wa s adjusted according to patient size. Iterative reconstruction technique was employed. The dose-lengt h product was 605.33 mGy-cm. COMPARISON: None FINDINGS: There is no intracranial hemorrhage, acute infarction, or abnormal intracranial mass lesion . The ventricles are normal in size. There are likely changes of ocular lens replacement surgeries. T he paranasal sinuses are clear. The mastoid air cells are normal. IMPRESSION: 1. Normal brain. Reviewed, dictated and finalized at location A. IMPRESSION: 1. Normal brain.
--- NOTE | ~2022-03-18 | CT_ITS ---
EXAMINATION: CT cervical spine wo con DATE: 03/18/2022 22:46 INDICATION: Neck pain. Right arm numbness. TECHNIQUE: Computed tomography (CT) of the cervical spine was performed without intravenous contrast. Automated exposure control and iterative reconstruction technique were employed. The dose-length pro duct was 479.15 mGy-cm. COMPARISON: None FINDINGS: There is kyphosis of cervical spine. Vertebral body heights are normal. There are changes o f anterior fusion procedure from C5 to C7 with healed interbody bone graft and anterior plate and scr ews. There is mildly decreased disc height at C2-C3 and C3-C4, moderately decreased disc height at C4 -C5, severely decreased disc height at C7-T1. The following disc levels are specifically discussed: C2-C3: There is mild bilateral uncovertebral joint osteoarthritis. There is severe bilateral facet wang int osteoarthritis. There is no neural foraminal stenosis. There is no central canal stenosis. C3-C4: There is mild bilateral uncovertebral joint osteoarthritis. There is severe bilateral facet wang int osteoarthritis. There is mild right and moderate left neural foraminal stenosis. There is mild ce ntral canal stenosis. C4-C5: There is mild right and severe left uncovertebral joint osteoarthritis. There is severe bilate ral facet joint osteoarthritis. There is moderate left neural foraminal stenosis. There is mild centr al canal stenosis. C5-C6: There is mild bilateral uncovertebral joint hypertrophy. There is mild bilateral facet joint h ypertrophy. There is mild bilateral neural foraminal stenosis. There is mild central canal stenosis. C6-C7: There is mild bilateral uncovertebral joint hypertrophy. There is mild bilateral facet joint h ypertrophy. There is mild bilateral neural foraminal stenosis. There is mild central canal stenosis. C7-T1: There is severe bilateral uncovertebral joint osteoarthritis. There is severe bilateral facet joint osteoarthritis. There is mild bilateral neural foraminal stenosis. There is no central canal st enosis. IMPRESSION: 1. No fracture. 2. Anterior fusion procedure from C5 to C7. 3. Severe cervical spondylosis. Reviewed, dictated and finalized at location A.
[2022-03-18 22:20] VITALS: BP 213/102; PULSE 88; RESP 18; TEMP 36.3; O2SAT 97
--- NOTE | 2022-03-18 23:11 | ED.GENADULT ---
HPI - General Adult General Chief complaint: Extremity Problem,Nontraumatic Stated complaint: numbness/tightness of right arm Time Seen by Provider: 03/18/22 22:28 Source: RN notes reviewed History of Present Illness HPI narrative: Is patient presents emergency department from home for right arm pain. Patient states over the past 1 week she has been having intermittent pain in her right arm. States the pain goes over her right lateral arm by her elbow and down into her first 3 digits of her hand states at times will feel tight or tingling states it is not present at this time and it is intermittent states that she does not note anything that makes the pain better or worse she denies having any weakness in that arm she denies any vision changes fevers or chills headaches chest pain shortness of breath or any other symptoms patient does have a history of cervical spine fusion Related Data Home Medications Medication Instructions Recorded Confirmed paroxetine HCl 20 mg tablet (Paxil) 20 mg PO DAILY 12/20/19 12/15/21 Allergies Allergy/AdvReac Type Severity Reaction Status Date / Time nitrofurantoin Allergy Mild rash Verified 03/18/22 22:25 prochlorperazine Allergy Mild Unknown Verified 03/18/22 22:25 Review of Systems Review of Systems: Gen.: Denies fevers or chills Eyes: Denies eye pain or visual change ENT: Denies congestion Respiratory: Denies shortness of breath or cough CV: Denies chest pain or palpitations GI: Denies abdominal pain nausea, emesis or diarrhea Musculoskeletal: Denies back pain or muscle pain Neuro: See HPI Skin: Denies rash Except as documented, all other systems reviewed and negative [facility] Past Medical History Medical History Acute arthritis BMI 31.0-31.9,adult Diabetes Diabetes Family History Family History Father Hypertension Acute myocardial infarction Mother Hypertension Cerebrovascular accident Family history of diabetes mellitus in first degree relative Family history of malignant neoplasm of breast in first degree relative Acute myocardial infarction Sibling Family history of Hodgkin's lymphoma Social History Social History Second hand tobacco smoke exposure: No Alcohol intake: never Substance use: never Substance use type: does not use 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 CARDIOVASCULAR: Regular rate and rhythm without murmurs rubs or gallops. ABDOMINAL: Soft, nontender, nondistended, no rebound or guarding MUSCULOSKELETAl: Moves all extremities. No clubbing, cyanosis or edema. Full flexion-extension of all 5 MCP and IP joints of the right hand PIN and AIN nerves intact muscle strength 5 out of 5 in the bilateral upper extremities patient with equal sensation in all 5 digits of the right hand and equal compared to the left hand NEURO: Awake and alert. Following commands, speech normal, no focal deficits SKIN:: Warm, dry. No rashes lesions or abrasions PSYCHIATRIC: Normal affect/mood, Course Course Emergency Course: Discussed with patient results of workup and diagnosis. Discussed need for follow-up with primary care, proper use of medication, and reasons to return to the emergency department. Patient understands and agrees to current treatment plan Vital Signs Vital signs: Vital Signs Temperature 97.3 F L 03/18/22 22:20 Pulse Rate
[2022-03-18 23:13] VITALS: BP 179/88; PULSE 82; RESP 16; O2SAT 97
== END 2022-03-18 23:27 | disposition home or self-care (01) ==
PROVIDERS: Emergency Provider Emergency Medicine; PCP Family Medicine
DX: M54.12 Radiculopathy, cervical region (principal); M19.90 Unspecified osteoarthritis, unspecified site; E11.9 Type 2 diabetes mellitus without complications; Z79.84 Long term (current) use of oral hypoglycemic drugs
CPT/HCPCS: 70450; 72125; 99284

== ENCOUNTER 2022-04-24 12:36 | Emergency (ER) | payer BC, SELFPAY ==
--- NOTE | 2022-04-24 12:37 | ED.URI ---
HPI - URI/Sore Throat General Chief Complaint: Upper Respiratory Infection Stated Complaint: Cough,Sinus,Body Aches Time Seen by Provider: 04/24/22 12:37 Source: patient Mode of arrival: ambulatory Limitations: no limitations History of Present Illness HPI Narrative: Ms. Loyd is a 61-year-old female patient presenting to clinic today with complaints of cough, sore throat, sinus congestion, and body aches x 4 days. She reports no fever or chills. States she went to a wedding last week. She denies any known sick contacts. Reports that she is having nonproductive cough, sore throat, a lot of sinus drainage, and body aches. Related Data Home Medications Medication Instructions Recorded Confirmed paroxetine HCl 20 mg tablet (Paxil) 20 mg PO DAILY 12/20/19 04/24/22 sumatriptan succinate 100 mg tablet 100 mg PO PRN PRN Migraine Headache 04/24/22 04/24/22 Allergies Allergy/AdvReac Type Severity Reaction Status Date / Time nitrofurantoin Allergy Mild rash Verified 04/24/22 12:38 prochlorperazine Allergy Mild Unknown Verified 04/24/22 12:38 Review of Systems Review of Systems: Pertinent positives per HPI. Patient denies any fever, chills, rash, headache, visual changes, dizziness, cough, runny nose, sore throat, shortness of breath, chest pain, palpitations, nausea, vomiting, diarrhea, constipation, abdominal pain, or any urinary issues. [facility] Past Medical History Medical History Acute arthritis BMI 29.0-29.9,adult BMI 31.0-31.9,adult Diabetes Diabetes Family History Family History Father Hypertension Acute myocardial infarction Mother Hypertension Cerebrovascular accident Family history of diabetes mellitus in first degree relative Family history of malignant neoplasm of breast in first degree relative Acute myocardial infarction Sibling Family history of Hodgkin's lymphoma Sibling Hypertension Social History Social History Smoking status: Never smoker Second hand tobacco smoke exposure: No Alcohol intake: never Substance use: never Substance use type: does not use 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 There is no relevant family history pertinent to the patient complaint. Exam Narrative: General: Well-developed, well nourished, in no apparent distress Head: Normocephalic, atraumatic Eyes: Pupils equally round and reactive to light bilaterally, EOM intact, sclera and conjunctive clear, no discharge, lids normal Ears: TMs intact and dull, ear canals clear, no drainage, grossly hearing normal. Nose: Nares patent, clear nasal discharge, moderate inflammation, sinus tenderness over the maxillary sinuses. Mouth: Oropharynx without lesions or masses, good dentition, MMM. Oropharynx red, postnasal drip Neck: Supple, trachea midline, no enlargement of anterior or posterior cervical nodes, no thyroid masses or goiter palpable. Cardio: Regular rate and rhythm, s1 and s2 normal, no murmur appreciated. Resp: Clear to auscultation bilaterally anteriorly and posteriorly, no rhonchi, rales, wheezing or rubs Course Course Emergency Course: Portions of this record may have been created with voice recognition software. Level of Care: Express Care Visit Vital Signs Vital signs: Vital Signs Temperature 37.5 C 04/24/22 12:43 Pulse Rate 93 04/24/22 12:43 Respiratory Rate 20 04/24/22 12:43 Blood Pressure 159/75 H 04/24/22 12:43 Pulse Oximetry 97 04/24/22 12:43 Oxygen Delivery Room Air 04/24/22 12:43 Temperatu
[2022-04-24 12:43] VITALS: BP 159/75; PULSE 93; RESP 20; TEMP 37.5; O2SAT 97
== END 2022-04-24 13:18 | disposition home or self-care (01) ==
PROVIDERS: Emergency Provider Nurse Practitioner Family; PCP Family Medicine
DX: J06.9 Acute upper respiratory infection, unspecified (principal); R09.82 Postnasal drip; E11.9 Type 2 diabetes mellitus without complications; Z20.822 Contact with and (suspected) exposure to COVID-19
CPT/HCPCS: 87081; 87426; 87880; 99213; C9803; G0463

== ENCOUNTER 2022-06-22 17:23 | Emergency (ER) | payer BC, SELFPAY ==
--- NOTE | ~2022-06-22 | XR_ITS ---
EXAM: XR foot RT min 3V DATE: 06/22/2022 18:13 HISTORY: trauma,fell today/pain bruising distal metatarsals and toes . COMPARISON: 03/13/2009. FINDINGS: Decreased mineralization. No fracture or dislocation. No lytic or blastic lesion. Mild deg enerative change at the first MTP and multiple midfoot joints. Plantar enthesopathy. Os navicularis. No erosion or periosteal change. Soft tissues within normal limits. IMPRESSION: No acute osseous finding in the right foot. Reviewed, dictated and finalized at location K. O VIDEO TECHNICIAN
[2022-06-22 17:56] VITALS: BP 134/70; PULSE 93; RESP 16; TEMP 35.8; O2SAT 99
--- NOTE | 2022-06-22 18:29 | ED.LOWEXIN ---
HPI - Extremity Injury (Lower) General Chief Complaint: Extremity Injury, Lower Stated Complaint: rt foot injury Time Seen by Provider: 06/22/22 18:29 Source: patient Mode of arrival: ambulatory Limitations: no limitations History of Present Illness HPI Narrative: 62-year-old female presents with complaint of pain to right foot. States today she tripped over a Kleenex box that was laying on the floor and then fell. Thinks that she hyper extended her foot. Patient walking with limp. patient reports that she already has pain to this foot due to psoriatic arthritis. Distal neurovascularly intact. All systems reviewed and negative except as noted above. Related Data Home Medications Medication Instructions Recorded Confirmed paroxetine HCl 20 mg tablet (Paxil) 20 mg PO DAILY 12/20/19 06/22/22 Allergies Allergy/AdvReac Type Severity Reaction Status Date / Time prochlorperazine AdvReac Intermediate Other Verified 06/22/22 18:08 nitrofurantoin AdvReac Mild rash Verified 06/22/22 18:08 Review of Systems Review of Systems: CONSTITUTIONAL: Denies fever, chills, or sweats. EYES: Denies visual changes, redness, or discharge. ENT: Denies rhinorrhea, congestion, sore throat, or otalgia. CARDIOVASCULAR: Denies chest pain, palpitations, or edema. RESPIRATORY: Denies cough or dyspnea. GASTROINTESTINAL: Denies abdominal pain, nausea, vomiting, or diarrhea. GENITOURINARY: Denies dysuria or hematuria. SKIN: Denies rash or itching. MUSCULOSKELETAL: Reports pain and swelling to right foot. NEUROLOGIC: Denies headache, numbness, or weakness. PSYCHIATRIC: Denies anxiety or depression. All other systems reviewed are negative, except as documented in HPI. [facility] Past Medical History Medical History (Updated 06/22/22 @ 18:35 by Raisa Umaña NP) Acute arthritis BMI 29.0-29.9,adult BMI 31.0-31.9,adult Diabetes Diabetes Surgical History Surgical History (Updated 05/31/22 @ 15:26 by Nicole Fritz MA) H/O cervical spine surgery Hx of cholecystectomy Family History Family History Father Hypertension Acute myocardial infarction Mother Hypertension Cerebrovascular accident Family history of diabetes mellitus in first degree relative Family history of malignant neoplasm of breast in first degree relative Acute myocardial infarction Sibling Family history of Hodgkin's lymphoma Sibling Hypertension Social History Social History Smoking status: Never smoker Second hand tobacco smoke exposure: No Alcohol intake: never Substance use: never Substance use type: does not use 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 There is no relevant family history pertinent to the presenting complaint. Exam Narrative: GENERAL: This is a well-nourished, well-developed patient, in no apparent distress. HEAD: normocephalic, atraumatic. EYES: PERRL. Sclera clear/white. Vision is grossly intact. EARS: External ears normal NOSE: External nose normal NECK: Neck supple, non-tender without lymphadenopathy, masses or thyromegaly. CARDIOVASCULAR: Regular rate and rhythm without murmurs, gallops, or rubs. RESPIRATORY: Clear to auscultation. Breath sounds equal bilaterally. No wheezes, rales, or rhonchi. SKIN: warm, Dry, intact with no suspicious lesions or rash, good texture and turgor. NEURO: awake, alert, and oriented to person, place and time. There were no obvious focal neurologic abnormalities. EXTREMITIES: No joint tenderness, effusion, or edema noted. contusion noted to dorsal aspect right foot near 3rd 4th distal metatarsal. Tender on pal
== END 2022-06-22 18:40 | disposition home or self-care (01) ==
PROVIDERS: Emergency Provider Nurse Practitioner Family; PCP Family Medicine
DX: S90.31XA Contusion of right foot, initial encounter (principal); E11.9 Type 2 diabetes mellitus without complications; W01.0XXA Fall on same level from slipping, tripping and stumbling without subsequent striking against object, initial encounter
CPT/HCPCS: 73630; 99213; G0463

== ENCOUNTER 2022-08-11 08:38 | Outpatient (CLI) | payer BC, SELFPAY ==
--- NOTE | 2022-08-11 11:00 | NEURO_ITS ---
Impression: # Complains of numbness of right hand. # Right Carpal Tunnel Syndrome. # Right ulnar neuropathy across the elbow. # There is ulnar-median cross innervation below the elbow. # Normal needle/EMG exam.. Motor Nerve Conduction Upper Extremities Median Nerve Conduction Velocity (m/sec) Terminal Latency (msec) Response Voltage(mV) Elbow-Wrist Wrist Elbow Wrist Right 54 4.1 1 1 Left Ulnar Nerve Conduction Velocity (m/sec) Terminal Latency (msec) Response Voltage(mV) Above Elbow Below Elbow Wrist Above Elbow Below Elbow Wrist Right 45 47 2.5 4 4 6 Left F-Wave Latency Median (ms) Ulnar (ms) Right 30.0 29.5 Left Sensory Nerve Conduction Upper Extremities Median Nerve Stimulation Terminal Latency (msec) Wrist/Digit Response Voltage (uV) Wrist Right 5.1/5.1 31/42 Left Ulnar Nerve Stimulation Terminal Latency (msec) Wrist/Digit Response Voltage (uV) Wrist Right 2.2 63 Left Radial Nerve Terminal Latency (msec) Response Voltage(mV) Right 2.1 18 Left Left Right Muscles Examined Fibrillation Fasciculation Scarcity Voltage Duration Left Right Left Right Left Right Left Right Left Right Deltoid Biceps X Brachioradialis Triceps X Pronator Teres X Ext Indicis X Ext Digitorum X Abd Poll Brev X 1st Dorsal Interosseus X Abd Dig Min MTDD
== END 2022-08-11 08:39 | disposition home or self-care (01) ==
PROVIDERS: PCP Family Medicine; Visit Provider Neurological Surgery
DX: R20.0 Anesthesia of skin (principal); M79.641 Pain in right hand; G56.01 Carpal tunnel syndrome, right upper limb; G56.21 Lesion of ulnar nerve, right upper limb
CPT/HCPCS: 95886; 95909

== ENCOUNTER 2022-10-20 09:56 | Outpatient (CLI) | payer OTHER, SELFPAY ==
--- NOTE | 2022-10-20 10:09 | ECG_ITS ---
Measurements Intervals [place] Rate: 84 P: 23 MI: 189 QRS: -15 QRSD: 80 T: 75 QT: 374 QTc: 443 Interpretive Statements SINUS RHYTHM CANNOT RULE OUT SEPTAL INFARCT, AGE INDETERMINATE INFERIOR INFARCT, AGE INDETERMINATE BASELINE ARTIFACT- I, II, III, AVR, AVL, AVF, V4-V6 ABNORMAL ECG NO PREVIOUS ECG AVAILABLE FOR COMPARISON Electronically Signed On 10-20-2022 12:01:53 CDT by Miguelito Marquez D.O.
[2022-10-20 11:05] LABS: Anion Gap 6 mmol/L (8-16); Blood Urea Nitrogen 17 mg/dL (7-17); Calcium 8.3 mg/dL (8.4-10.2); Carbon Dioxide 29 mmol/L (22-30); Chloride 101 mmol/L (98-107); Estimated Glomerular Filt Rate > 60; Glucose 380 mg/dL (65-110); Potassium 4.2 mmol/L (3.4-5.0); Sodium 136 mmol/L (137-145)
== END 2022-10-20 09:57 | disposition home or self-care (01) ==
LOC: ANHSURGERY 10:01
PROVIDERS: Anesthesiology; PCP Family Medicine; Visit Provider Neurological Surgery
DX: G56.01 Carpal tunnel syndrome, right upper limb (principal); E11.9 Type 2 diabetes mellitus without complications; Z01.818 Encounter for other preprocedural examination; R94.31 Abnormal electrocardiogram [ECG] [EKG]
CPT/HCPCS: 36415; 80048; 93005

== ENCOUNTER 2022-10-26 01:09 | Day surgery (SDC) | payer OTHER, SELFPAY ==
[2022-10-18 09:58] VITALS: BMI 31.6
--- NOTE | 2022-10-18 10:02 | PC.NURSE ---
Report to the Outpatient Waiting Room, entrance under the green pavilion located off [facility], at time 11:30 on date 10/26/22. Planned Procedure Time: 1:30. Time changes happen often and if your time is changed the preop area will call you the afternoon before. - You and your visitor will be asked to self-screen and do not enter if you have any COVID symptoms. - Only one visitor is requested with a max of two and NO children visitors are allowed at this time. - The patient visitor may be requested to leave or wait in car when not with patient due to distancing restrictions. - A mask is optional within the hospital at this time. Patients may have clear liquids (water, carbonated beverages, clear teas, apple juice) until 3 hours prior to surgery (10:30) with a maximum of 20 ounces. - No food from midnight until time of surgery Take the following medications with a SIP of water the morning of surgery: PAROXETINE, PROPRANOLOL DO NOT STOP ANY OF YOUR OTHER PRESCRIPTION MEDICATIONS PRIOR TO SURGERY?EXCEPT THE FOLLOWING Medications to discontinue per physician: MELOXICAM Date to take last dose: PER DR. CARDENAS Please no make-up, nail portuguese, hairspray, perfume, deodorant, or body powder the day of surgery. No jewelry (including any body piercings) or valuables the day of surgery, leave them at home. Please take a shower or bath the night before, or the morning of, surgery with an antibacterial soap. Wear comfortable, loose fitting clothing. - Jewelry must be removed prior to entering the operating room. Rings and piercings that are not removed may be cut off. - The hospital will not accept responsibility for valuables. - Please leave all valuables, including medications, at home the day of surgery. If you are going home after surgery, a licensed sales route driver must drive you home. - NO public transportation without another adult if you receive anesthesia. - We recommend that an adult stay with you for 24 hours following discharge. - We also recommend that you do not drive, make important decision, drink alcoholic beverages, or take any drugs that were not prescribed by your health care provider for at least 24 hours after your discharge time. Follow any additional instructions given to you from your surgeon. If you or anyone in your household have experienced Covid symptoms in the past week, please notify your surgeon or the nurse liaison at the phone number below for possible testing. Telephone instructions given to CASEY DRAPER and asked if any additional questions and then verbalized understanding. Patient advised to call surgeon office or pre surgery nurse liaison [phone] if any additional questions.
--- NOTE | 2022-10-25 15:12 | WPDANESEPPF ---
Anes - Initial Pre Proc Eval Procedure: Operation Date: 10/26/22 08:30 Proposed Procedures p Right Carpal Tunnel Release - Doni Walls MD Date/Time: 10/25/22 15:12 Surgeon: Doni Walls MD Pre Op Diagnosis: Righ Carpal Tunnel Syndrome Patient Data Age: 62 Gender: F Height: 1.65 m Weight: 86.18 kg Allergies Allergy/AdvReac Type Severity Reaction Status Date / Time prochlorperazine AdvReac Intermediate Other Verified 10/26/22 06:54 nitrofurantoin AdvReac Mild rash Verified 10/26/22 06:54 Home Medications Medication Instructions Recorded Confirmed Type paroxetine HCl 20 mg tablet (Paxil) 20 mg PO DAILY 12/20/19 10/26/22 History meloxicam 15 mg tablet See Rx Instructions .Route 07/19/22 10/26/22 Rx .COMPLEX #90 tabs metformin 500 mg tablet,extended 2,000 mg PO DAILY #120 tabs 07/19/22 10/26/22 Rx release 24 hr propranolol 120 mg capsule,24 120 mg PO DAILY #90 caps 07/19/22 10/26/22 Rx hr,extended release gabapentin 300 mg capsule 300 mg PO QHS #30 caps 08/16/22 10/26/22 Rx sumatriptan succinate 100 mg tablet 100 mg PO PRN PRN Migraine 08/17/22 10/26/22 Rx Headache #10 tabs simvastatin 40 mg tablet 40 mg PO DAILY #90 tabs 09/19/22 10/26/22 Rx zolpidem 5 mg tablet 5 mg PO .QHS #30 tabs 10/14/22 10/26/22 Rx risankizumab-rzaa 150 mg/mL 150 mg subcut ONCE 10/18/22 10/26/22 History subcutaneous pen injector (Skyrizi) Patient hx anesthesia problems: none Family hx anesthesia problems: none Results Review: All pre-operative results and documents have been reviewed as part of the pre-operative evaluation. ON LICENSE OF [facility] Past Medical History Medical History (Updated 10/25/22 @ 15:13 by Den Oquendo MD) Acute arthritis BMI 29.0-29.9,adult BMI 31.0-31.9,adult Carpal tunnel syndrome Diabetes Diabetes Hepatomegaly Hypertension Hypothyroidism (acquired) Migraine Mixed hyperlipidemia Psoriasis Type 2 diabetes mellitus without complications Surgical History Surgical History H/O cervical spine surgery Hx of cholecystectomy Family History Family History Father Hypertension Acute myocardial infarction Mother Hypertension Cerebrovascular accident Family history of diabetes mellitus in first degree relative Family history of malignant neoplasm of breast in first degree relative Acute myocardial infarction Sibling Family history of Hodgkin's lymphoma Sibling Hypertension Social History Social History Smoking status: Never smoker Second hand tobacco smoke exposure: No Alcohol intake: never Substance use: never Substance use type: does not use Living arrangements: with family Occupation/Education: occupation 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 Informed Consent: The patient's anesthetic plan and its attendant risks and benefits were discussed with the patient/family/POA. Questions were solicited and answers provided to the satisfaction of the patient/family/POA.
[2022-10-26 06:41] VITALS: BP 121/84; PULSE 78; RESP 18; TEMP 36; O2SAT 94
[2022-10-26] MEDS: LACTATED RINGERS 1,000 ML 30 ML IV CONT (07:10)
[2022-10-26 07:18] LABS: Glucose Point of Care 184 mg/dl (65-105)
--- NOTE | 2022-10-26 08:37 | WPDHPUPDATE1 ---
History and Physical Update Update Date/Time: 10/26/22 08:37 History and Physical has been reviewed, including an updated exam of the patient. There are NO changes in the patient's condition. Risks, benefits, and alternatives have been discussed and questions answered. Patient agrees to proceed with procedure.
--- NOTE | 2022-10-26 08:38 | PM.IMHP ---
H&P: HPI History of Present Illness Date/Time: 10/26/22 08:38 Chief Complaint: Marce is a 62-year-old female with a right carpal tunnel syndrome presents for right carpal tunnel release. She has not changed appreciably since we last saw her. She has pain numbness and tingling in a radial distribution in the right hand. She is not having bowel or bladder difficulty or other constitutional problems. She does not have consistent specific muscle group weakness. Review of Systems Review of Systems: Patient denies shortness of breath, cough, fever, chills, nausea, vomiting, weight loss, weight gain, chest pain, dysuria. She has hand pain numbness and tingling as above. Review of systems is otherwise negative on 12 systems except as noted elsewhere. [facility] Past Medical History Medical History Acute arthritis BMI 29.0-29.9,adult BMI 31.0-31.9,adult Carpal tunnel syndrome Diabetes Diabetes Hepatomegaly Hypertension Hypothyroidism (acquired) Migraine Mixed hyperlipidemia Psoriasis Type 2 diabetes mellitus without complications Surgical History Surgical History H/O cervical spine surgery Hx of cholecystectomy Family History Family History Father Hypertension Acute myocardial infarction Mother Hypertension Cerebrovascular accident Family history of diabetes mellitus in first degree relative Family history of malignant neoplasm of breast in first degree relative Acute myocardial infarction Sibling Family history of Hodgkin's lymphoma Sibling Hypertension Social History Social History Smoking status: Never smoker Second hand tobacco smoke exposure: No Alcohol intake: never Substance use: never Substance use type: does not use Living arrangements: with family Occupation/Education: occupation 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[employer] Gender identity (if verbalized by the patient): Female Spiritual care concerns: No Meds Home Medications and Allergies Home Medications Medication Instructions Recorded Confirmed Type paroxetine HCl 20 mg tablet (Paxil) 20 mg PO DAILY 12/20/19 10/26/22 History meloxicam 15 mg tablet See Rx Instructions .Route 07/19/22 10/26/22 Rx .COMPLEX #90 tabs metformin 500 mg tablet,extended 2,000 mg PO DAILY #120 tabs 07/19/22 10/26/22 Rx release 24 hr propranolol 120 mg capsule,24 120 mg PO DAILY #90 caps 07/19/22 10/26/22 Rx hr,extended release gabapentin 300 mg capsule 300 mg PO QHS #30 caps 08/16/22 10/26/22 Rx sumatriptan succinate 100 mg tablet 100 mg PO PRN PRN Migraine 08/17/22 10/26/22 Rx Headache #10 tabs simvastatin 40 mg tablet 40 mg PO DAILY #90 tabs 09/19/22 10/26/22 Rx zolpidem 5 mg tablet 5 mg PO .QHS #30 tabs 10/14/22 10/26/22 Rx risankizumab-rzaa 150 mg/mL 150 mg subcut ONCE 10/18/22 10/26/22 History subcutaneous pen injector (Skyrizi) Allergies Allergy/AdvReac Type Severity Reaction Status Date / Time prochlorperazine AdvReac Intermediate Other Verified 10/26/22 06:54 nitrofurantoin AdvReac Mild rash Verified 10/26/22 06:54 Vital Signs Vital Signs - 24 hr 10/26/22 06:41 Temperature 96.8 F L Pulse Rate 78 Respiratory Rate 18 Blood Pressure 121/84 Pulse Oximetry 94 Oxygen Delivery Room Air Exam Narrative: Strength appears to be normal the bilateral upper extremities with the exception of slight director inbound sales strength on the right compared to left. Sensation was intact to light touch throughout the upper extremities. Breathing is unlabored, she speaks in complete sentences without difficulty. Regular rate and rhythm Assessment and Plan Assessment and plan (1) Carpal tunnel syndrome: Code(s): G56.00 - Carpal dea
[2022-10-26 09:20] VITALS: BP 141/59; PULSE 81; RESP 16; O2SAT 100
--- NOTE | 2022-10-26 09:20 | P.OP_ITS ---
Procedure Note - Detailed Date of Procedure 10/26/22 Pre-op Diagnosis Righ Carpal Tunnel Syndrome Post-op Diagnosis Same Procedure Performed Right carpal tunnel release Surgeon Doni Walls MD Anesthesia General Description of Procedure The patient was brought to the operating room in the supine position, her right arm was extended over arm board. She was sedated. The area of operation at the base were palm was examined, marked for incision, prepped and draped in routine sterile fashion. Incision was marked 2 cm long from the wrist crease distally just medial to the palmar crease. This area was injected with 0.5% lidocaine with [id number] epinephrine. Incision was made with a 15 blade scalpel into the subcutaneous tissues. Bipolar cautery was used to stop bleeding and to coagulate fat. A self- retaining retractor was placed. A separate 15 blade scalp was used to come to the soft tissues until the carpal ligament was discovered and incised exposing median nerve below. This incision was extended distally using a 15 blade scalpel until the palmar fat was encountered. Proximally it was extended using small Metzenbaum scissors until a 4 Union could be placed proximally to confirm lack of compression over the nerve. The wound was then copiously irrigated with bacitracin irrigation all bleeding was stopped with bipolar cautery. The wound was closed in single layer fashion using 3-0 nylon vertical mattress interrupted sutures and was dressed with Telfa, fluffs 4x4s and Kerlix and Tree wrap. The patient was allowed to wake up in the operating room and was taken to the recovery room in stable condition. There were no immediate complications of this operation. All counts were reported correct at the end the case. Blood loss was 1 cc. Patient was neurologically at her baseline postoperatively. Estimated Blood Loss 1 IV Fluids 250 Complications None Condition Stable Disposition PACU [facility] Billing Surgery - Charge Forward: Surgery Billing
[2022-10-26] MEDS: LIDO 1%/EPINEPHRINE 1:100,000 50 ML VIAL 10 ML INFILTRATE (09:23)
[2022-10-26 09:28] LABS: Glucose Point of Care 226 mg/dl (65-105)
--- NOTE | 2022-10-26 09:43 | SUR.PHASEII ---
0944 - dr. osei aware of accucheck of 226. no orders received.
[2022-10-26 09:45] VITALS: BP 141/91; PULSE 98; RESP 20
[2022-10-26 10:15] VITALS: BP 137/86; PULSE 80; RESP 20
== END 2022-10-26 10:21 | disposition home or self-care (01) ==
PROVIDERS: PCP Family Medicine; Visit Provider Neurological Surgery
PROC: (CPT 64721; principal; 2022-10-26 08:30)
DX: G56.01 Carpal tunnel syndrome, right upper limb (principal); E11.9 Type 2 diabetes mellitus without complications; I10 Essential (primary) hypertension; E03.9 Hypothyroidism, unspecified; E78.2 Mixed hyperlipidemia; L40.9 Psoriasis, unspecified; Z79.84 Long term (current) use of oral hypoglycemic drugs; E66.9 Obesity, unspecified; Z68.29 Body mass index [BMI] 29.0-29.9, adult
CPT/HCPCS: 64721; 36415; 80048; 82948; 93005; J2250; J2704; J3010; J7120

== ENCOUNTER 2023-01-31 14:18 | Emergency (ER) | payer OTHER, SELFPAY ==
--- NOTE | 2023-01-31 14:26 | ED.GENADULT ---
HPI - General Adult General Chief complaint: Upper Respiratory Infection Stated complaint: Body Aches,Upset Stomach Time Seen by Provider: 01/31/23 14:27 Source: patient, RN notes reviewed and old records reviewed Mode of arrival: ambulatory Limitations: no limitations History of Present Illness HPI narrative: 62-year-old female presents to the [facility] with complaints of a nausea, bones are sore, joints are sore, generalized body aches since Tuesday, 3 days. Patient denies any other complaints. Denies abdominal pain, chest pain, shortness of breath. Denies sore throat, sinus congestion or ear pain. Has taken naproxen and ibuprofen her the aches. Reports Tuesday she had a fever of 102. Onset (ago): day(s) (3) Related Data Home Medications Medication Instructions Recorded Confirmed paroxetine HCl 20 mg tablet (Paxil) 20 mg PO DAILY 12/20/19 01/31/23 risankizumab-rzaa 150 mg/mL 150 mg subcut ONCE 10/18/22 01/31/23 subcutaneous pen injector (Skyrizi) Allergies Allergy/AdvReac Type Severity Reaction Status Date / Time prochlorperazine AdvReac Intermediate Other Verified 01/31/23 14:23 nitrofurantoin AdvReac Mild rash Verified 01/31/23 14:23 Review of Systems Review of Systems: All systems reviewed & are unremarkable except as noted in HPI and below Constitutional: Constitutional: Reports as per HPI and Reports body ache(s) Eyes: Eyes: Reports no additional eye complaints ENT: Reports system reviewed and no additional complaints, except as documented Cardiovascular: Cardiovascular: Reports no additional cardiovascular complaints, Denies chest pain and Denies dyspnea Respiratory: Respiratory: Reports no additional respiratory complaints, Denies chest congestion, Denies cough and Denies dyspnea Gastrointestinal: Gastrointestinal: Reports no additional gastrointestinal complaints, Denies abdominal pain, Denies nausea and Denies vomiting Musculoskeletal: Musculoskeletal: Reports no additional musculoskeletal complaints Integumentary/Breasts: Skin/Breast: Reports system reviewed and no additional complaints, except as docu Neurologic: Reports system reviewed and no additional complaints, except as documented Psychiatric: Psychiatric: Reports no additional psychiatric complaints Allergic/Immunologic: Allergic/Immunologic: Reports no additional allergic/immunologic complaints PMFSH Past Medical History Medical History Acute arthritis BMI 29.0-29.9,adult BMI 31.0-31.9,adult Carpal tunnel syndrome Diabetes Diabetes Hepatomegaly Hypertension Hypothyroidism (acquired) Migraine Mixed hyperlipidemia Psoriasis Type 2 diabetes mellitus without complications Surgical History Surgical History H/O cervical spine surgery Hx of cholecystectomy Family History Family History Father Hypertension Acute myocardial infarction Mother Hypertension Cerebrovascular accident Family history of diabetes mellitus in first degree relative Family history of malignant neoplasm of breast in first degree relative Acute myocardial infarction Sibling Family history of Hodgkin's lymphoma Sibling Hypertension Social History Social History Smoking status: Never smoker Second hand tobacco smoke exposure: No Alcohol intake: never Substance use: never Substance use type: does not use Living arrangements: with family Occupation/Education: occupation 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 There is no relevant fa
[2023-01-31 14:29] VITALS: BP 119/69; PULSE 105; RESP 16; TEMP 37.7; O2SAT 98
== END 2023-01-31 15:00 | disposition home or self-care (01) ==
PROVIDERS: Emergency Provider Nurse Practitioner; PCP Family Medicine
DX: R52 Pain, unspecified (principal); Z20.822 Contact with and (suspected) exposure to COVID-19; E11.9 Type 2 diabetes mellitus without complications; I10 Essential (primary) hypertension; E03.9 Hypothyroidism, unspecified; E78.2 Mixed hyperlipidemia; L40.9 Psoriasis, unspecified
CPT/HCPCS: 87426; 87804; 99213; C9803; G0463

== ENCOUNTER 2023-02-24 15:35 | Observation (INO) | payer OTHER, SELFPAY ==
[2023-02-24] VITALS (11 sets, daily range): BP systolic 100–151; BP diastolic 63–88; PULSE 83–96; RESP 12–18; TEMP 36.4–37.2; O2SAT 87–100; BMI 30.2
--- NOTE | ~2023-02-24 | CT_ITS ---
EXAMINATION: CT abdomen pelvis w con DATE: 02/24/2023 18:01 INDICATION: Lower abdominal pain. Nausea and vomiting. Diarrhea. TECHNIQUE: Computed tomography (CT) of the abdomen and pelvis was performed without intravenous contr ast. The dose-length product was 719.78 mGy-cm. Automated exposure control and iterative reconstructi on technique were employed. COMPARISON: CT dated 07/27/2021. FINDINGS: Lung bases are unremarkable. Heart size normal. No significant pleural or pericardial effus ion. Diffuse fatty infiltration of the liver. Small subcentimeter hypodensity left hepatic lobe, most likely benign cysts. Status post cholecystectomy with expected prominence of the bile ducts. There a re nonobstructing bilateral renal stones. There is at least one stone in the distal aspect of the lef t ureter measuring 8-9 mm. There is mild left hydroureteronephrosis. There are low-density lesions in both kidneys, most likely benign cysts. Nonobstructive bowel gas pattern. Small fat-containing umbil ical hernia. No lymphadenopathy. Moderate-severe lower lumbar spondylosis. Moderate osteoarthritis of the hips. IMPRESSION: 1. Distal left ureteral stone just proximal to the UVJ measuring 8-9 mm. Mild left hydroureteronephro sis. 2: Nonobstructing bilateral renal stones. Reviewed, dictated and finalized at location A. IMPRESSION: 1. Distal left ureteral stone just proximal to the UVJ measuring 8-9 mm. Mild l eft hydroureteronephrosis. 2: Nonobstructing bilateral renal stones.
--- NOTE | ~2023-02-24 | XR_ITS ---
XR abdomen/kub 1V 02/24/2023 18:52 INDICATION: Left UVJ stone TECHNIQUE: KUB COMPARISON: CT dated 02/24/2023 FINDINGS: Bowel gas pattern is normal. There is contrast in the renal collecting systems, ureters and bladder. There is left hydronephrosis. There is no evidence of free air, mass, organomegaly, ascites or obstruction. No abnormal calculi are seen. The bones appear intact. IMPRESSION: 1: Left hydronephrosis. Reviewed, dictated and finalized at location A. IMPRESSION: 1: Left hydronephrosis.
--- NOTE | ~2023-02-24 | US_ITS ---
US abdomen limited INDICATION: Rising liver enzymes PROCEDURE: Realtime right upper abdominal ultrasound. COMPARISON: No prior studies for comparison. FINDINGS: The pancreas is normal without focal mass or pancreatic ductal dilation. There is a liver cyst of the left hepatic lobe measuring 1.7 cm. There is normal directional flow in the portal vein. Status post cholecystectomy with expected prominence of the bile ducts. Common bile duct measures 10 mm. IMPRESSION: 1: Liver cyst measuring 1.7 cm. 2: Status post cholecystectomy with expected prominence of the common bile duct measuring 10 mm. Reviewed, dictated and finalized at location A.
--- NOTE | ~2023-02-24 | XR_ITS ---
EXAMINATION: XR retrograde pyelo w/stent LT DATE: 02/25/2023 11:07 INDICATION: Left internal ureteral stent placement TECHNIQUE: Fluoroscopic images from a left internal ureteral stent placement are submitted for review . 28 seconds of fluoroscopy time. 4 fluoroscopic images FINDINGS: There is a left double-J internal ureteral stent projecting in expected position, with proximal [place] loop at the level of the renal pelvis and distal loop in the pelvis within the bladder lumen. IMPRESSION: 1. Left internal ureteral stent placement. Please refer to real-time procedural findings for detail s. Reviewed, dictated and finalized at location A. IMPRESSION: 1. Left internal ureteral stent placement. Please refer to real-time procedur al findings for details.
[2023-02-24 16:11] LABS: Basophils Absolute Auto 0.1 K/mm3 (0.0-0.1); Basophils Percent Auto 0.7 % (0.2-1.2); Eosinophils Percent Auto 0.1 % (0-4.4); Hematocrit 39.7 % (37.0-47.0); Hemoglobin 13.4 g/dL (12.0-15.0); Immature Granulocyte Absolute 0.32 K/mm3 (0.00-0.031); Immature Granulocyte Percent A 2.3 % (0-0.5); Lymphocytes Percent Auto 2.8 % (18.3-44.2); Mean Corpuscular HGB Conc 33.8 g/dl (32-36); Mean Corpuscular Hemoglobin 29.5 pg (26-34); Mean Corpuscular Volume 87.3 fl (80-100); Mean Platelet Volume 9.1 fl (7.4-10.4); Monocytes Absolute Auto 0.6 K/mm3 (0.1-0.6); Monocytes Percent Auto 4.2 % (2.6-8.5); Neutrophils Absolute Auto 12.7 K/mm3 (1.3-6.7); Neutrophils Percent Auto 89.9 % (45.5-73.1); Platelet Count Result 262 k/mm3 (150-375); Red Blood Count 4.55 M/mm3 (4.2-5.4); Red Cell Distribution Width 13.6 % (11.5-14.5); White Blood Count 14.2 K/mm3 (4.5-10.0)
[2023-02-24 16:14] LABS: Appearance Urine Cloudy (Clear); Bacteria Urine 4+ /hpf; Bilirubin Urine Negative (Negative); Blood Urine 1+ (Negative); Color Urine Dark Yellow (Yellow); Glucose Urine UA 3+ mg/dL (Negative); Ketones Urine 3+ mg/dL (Negative); Leukocyte Esterase Ur 2+ LEU/UL (Negative); Nitrate Urine Positive (Negative); Protein Urine 2+ mg/dL (Negative); Specific Grav Ur 1.019 (1.001-1.035); Squamous Epithelial Cell Urine Moderate /hpf (Few); WBC Urine >100 /hpf
[2023-02-24 16:20] LABS: Add Urine Microscopic? YES
[2023-02-24 16:22] LABS: Alanine Aminotransferase 37 U/L (6-35); Albumin Level 3.8 g/dL (3.5-5.1); Alkaline Phosphatase 250 U/L (38-126); Anion Gap 17 mmol/L (8-16); Aspartate Amino Transferase 61 U/L (14-36); Bilirubin,Total 1.1 mg/dL (0.2-1.3); Blood Urea Nitrogen 14 mg/dL (7-17); Calcium 8.5 mg/dL (8.4-10.2); Carbon Dioxide 29 mmol/L (22-30); Chloride 87 mmol/L (98-107); Estimated CRCL calculation 65 ml/min; Estimated Glomerular Filt Rate > 60; Glucose 267 mg/dL (65-110); Lipase 96 U/L (23-300); Potassium 2.7 mmol/L (3.4-5.0); Sodium 133 mmol/L (137-145)
--- NOTE | 2023-02-24 16:58 | ECG_ITS ---
Measurements Intervals [place] Rate: 93 P: 12 ID: 120 QRS: -18 QRSD: 90 T: 28 QT: 456 QTc: 568 Interpretive Statements SINUS RHYTHM INCOMPLETE RIGHT BUNDLE BRANCH BLOCK DELAYED PRECORDIAL R/S TRANSITION CONSIDER INFERIOR INFARCT, AGE INDETERMINATE PROLONGED QT INTERVAL BASELINE ARTIFACT- I, II, III, AVR, AVL, AVF, V1-V6 ABNORMAL ECG COMPARED TO ECG 10/20/2022 09:29:27 PROLONGED QT INTERVAL NOW PRESENT Electronically Signed On 02-24-2023 20:30:21 CDT by Miguelito Marquez D.O.
--- NOTE | 2023-02-24 17:34 | ED.GENADULT ---
HPI - General Adult General Chief complaint: Abdominal Pain <JARRET Shetty Last Filed: 02/24/23 19:18> Stated complaint: Abd pain, n/v, body aches, joint pain <Geri Merida PA-C - Last Filed: 02/24/23 19:18> Time Seen by Provider: 02/24/23 16:37 <JARRET Shetty Last Filed: 02/24/23 19:18> Source: patient <JARRET Shetty Last Filed: 02/24/23 19:18> Mode of arrival: ambulatory <JARRET Shetty Last Filed: 02/24/23 19:18> Limitations: no limitations <JARRET Shetty Last Filed: 02/24/23 19:18> History of Present Illness HPI narrative: Patient is a 62-year-old female who presents to the ED with report of N/V/D. Patient reports she developed lower abdominal pain on Tuesday. She developed nausea, vomiting, diarrhea associated with this. The pain began to improve on Tuesday, but the nausea and diarrhea have persisted. Patient reports she has been unable to keep down any food since last Tuesday. She has been drinking fluids, but feels very weak and dehydrated. She also complains of body aches and increased urination, denies fevers, rectal bleeding, melena, hematuria, chest pain, difficulty breathing. <JARRET Shetty Last Filed: 02/24/23 19:18> Related Data Home medications: Home Medications Medication Instructions Recorded Confirmed paroxetine HCl 20 mg tablet (Paxil) 20 mg PO HS 12/20/19 02/24/23 risankizumab-rzaa 150 mg/mL 150 mg subcut ONCE 10/18/22 02/24/23 subcutaneous pen injector (Skyrizi) sumatriptan succinate 100 mg 100 mg PO PRN PRN Migraine Headache 02/24/23 02/24/23 tablet (Imitrex) zolpidem 5 mg tablet (Ambien) 5 mg PO .QHS 02/24/23 02/24/23 <JARRET Shetty Last Filed: 02/24/23 19:18> Allergies/adverse reactions: Allergies Allergy/AdvReac Type Severity Reaction Status Date / Time prochlorperazine AdvReac Intermediate Other Verified 03/02/23 07:57 nitrofurantoin AdvReac Mild rash Verified 03/02/23 07:57 <JARRET Shetty Last Filed: 02/24/23 19:18> Review of Systems Review of Systems: CONSTITUTIONAL: Denies fever, chills, or sweats. CARDIOVASCULAR: Denies chest pain. RESPIRATORY: Denies dyspnea. GASTROINTESTINAL: See HPI. GENITOURINARY: See HPI. SKIN: Denies rash or itching. MUSCULOSKELETAL: Reports myalgia. NEUROLOGIC: Denies headache, numbness. <JARRET Shetty Last Filed: 02/24/23 19:18> All systems reviewed & are unremarkable except as noted in HPI and below <JARRET Shetty Last Filed: 02/24/23 19:18> [facility] Past Medical History Medical History: Medical History (Updated 03/02/23 @ 10:59 by DANIEL Bonilla) Acute arthritis BMI 28.0-28.9,adult BMI 29.0-29.9,adult BMI 31.0-31.9,adult Carpal tunnel syndrome Diabetes Diabetes Hepatomegaly Hypertension Hypothyroidism (acquired) Migraine Mixed hyperlipidemia Psoriasis Type 2 diabetes mellitus without complications Ureteral stent present <JARRET Shetty Last Filed: 02/24/23 19:18> Surgical History Surgical History: Surgical History H/O cervical spine surgery Hx of cholecystectomy <JARRET Shetty Last Filed: 02/24/23 19:18> Family History Family History: Family History Father Hypertension Acute myocardial infarction Heart disease Hyperlipidemia Mother Hypertension Cerebrovascular accident Family history of diabetes mellitus in first degree relative Family history of malignant neoplasm of breast in first degree relative Acute myocardial infarction Sibling Family history of Hodgkin's lymphoma Sibling Hypertension Diabetes mellitus <Geri Merida PA-C - Last Filed: 02/24/23 19:18> Social History Social History: Soci
[2023-02-24 18:00] LABS: Magnesium 1.4 mg/dL (1.6-2.3)
[2023-02-24 18:06] LABS: Lactic Acid Reflex 2.6 mmol/L (0.7-2.0)
[2023-02-24] MEDS: PANTOPRAZOLE SODIUM IV 40 MG VIAL IV PUSH (18:11)
[2023-02-24] MEDS: SODIUM CHLORIDE 0.9% IV 1,000 ML 999 ML IV CONT ×3 (18:14→20:43)
[2023-02-24] MEDS: POTASSIUM CHLORIDE INJ 40 MEQ in SODIUM CHLORIDE 0.9% IV 500 ML 130 MEQ IVPB (18:14)
[2023-02-24 18:29] LABS: Beta-Hydroxybutyrate/Acetoacetate 1.36 mmol/L (0.02-0.27)
--- NOTE | 2023-02-24 19:05 | PC.NURSE ---
This RN assumed care of patient. This RN took report from Cat RN
[2023-02-24 20:26] LABS: Influenza A QL RT-PCR Negative (Negative); Influenza B QL RT-PCR Negative (Negative); SARS-CoV-2 RNA PCR Negative (Negative)
[2023-02-24] MEDS: MAGNESIUM SULF 2 GM/WATER 50ML 2 GM/50 ML BAG IVPB (20:44)
[2023-02-24] MEDS: MORPHINE SULFATE (*CRX) 4 MG/ML INJ IV PUSH (20:53)
[2023-02-24 20:54] LABS: Reflex Lactic Acid Yes or No Add Lactic
--- NOTE | 2023-02-24 21:05 | PM.IMHP ---
H&P: HPI History of Present Illness Date/Time: 02/24/23 21:05 Chief Complaint: Abdominal pain Narrative: This is a 62-year-old female patient who has a history of diabetes and hypothyroidism. Patient presented to the emergency room complaints of nausea vomiting diarrhea. The patient stated she has been having abdominal pain since Tuesday. The patient stated the last time that she vomited was Tuesday. The patient stated that her symptoms began to improve on Tuesday but she still had nausea and she had the diarrhea. She is unable to keep anything down since this past Tuesday. She has been drinking some fluids but she still feels weak and dehydrated. She has complaints of body aches and increased urination. No shortness of breath. No fever chills. She has not had any sick contacts. She lives with her sister but her sister is currently out of town. White count is 14.2. Sodium is 133 and 134. Potassium 2.7 and 2.8. Glucose 172. Lactic was 8.5 now 7.1. Magnesium was low at 1.4. AST 61 ALT 37 and alkaline phosphatase 250. Patient was found to be positive for UTI. The patient was started on Rocephin. The patient was given IV fluids, Zofran, potassium, magnesium, Rocephin, and morphine. The patient is being admitted to observation status on 02/24/2023. Review of Systems Review of Systems: This is a 62-year-old female patient who has a history of diabetes type 2 and hypothyroidism. All systems reviewed & are unremarkable except as noted in HPI and below Constitutional: Constitutional: Reports as per HPI and Reports no additional constitutional complaints Eyes: Eyes: Reports as per HPI and Reports no additional eye complaints ENT: Reports system reviewed and no additional complaints, except as documented and Reports Normal hearing present Cardiovascular: Cardiovascular: Reports no additional cardiovascular complaints Respiratory: Respiratory: Reports no additional respiratory complaints and Reports no additional respiratory complaints Gastrointestinal: Gastrointestinal: Reports as per HPI and Reports no additional gastrointestinal complaints Musculoskeletal: Musculoskeletal: Reports no additional musculoskeletal complaints Integumentary/Breasts: Skin/Breast: Reports system reviewed and no additional complaints, except as docu and Reports as per HPI Neurologic: Reports system reviewed and no additional complaints, except as documented, Reports as per HPI and Reports Normal hearing present Psychiatric: Psychiatric: Reports no additional psychiatric complaints and Reports as per HPI Endocrine: Endocrine: Reports no additional endocrine complaints Hematologic/Lymphatic: Hematologic/Lymphatic: Reports no additional hematologic/lymphatic complaints Allergic/Immunologic: Allergic/Immunologic: Reports no additional allergic/immunologic complaints [facility] Past Medical History Medical History Acute arthritis BMI 29.0-29.9,adult BMI 31.0-31.9,adult Carpal tunnel syndrome Diabetes Diabetes Hepatomegaly Hypertension Hypothyroidism (acquired) Migraine Mixed hyperlipidemia Psoriasis Type 2 diabetes mellitus without complications Surgical History Surgical History H/O cervical spine surgery Hx of cholecystectomy Family History Family History Father Hypertension Acute myocardial infarction Mother Hypertension Cerebrovascular accident Family history of diabetes mellitus in first degree relative Family history of malignant neoplasm of breast in first degree relative Acute myocardial infarction Sibling Family history of Hodgkin's lymphoma Sibling Hypertension Social History Social History (Updated 02/25/23 @ 01:06 by Alma Pinto NP) Social History: The patient is single and has no children. 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
--- NOTE | 2023-02-24 21:53 | ADMGEN ---
This patient, Marce Loyd, was admitted to Medical Room 246-01. Patient/family oriented to hospital policies and general routines including ID bracelet, bed and alarms, visiting hours, pain management, procedures, bathroom and other care routines, personal items, smoking policy, room service/diet, and visiting hours. Information on how to activate the Rapid Response Team has been discussed. Patient/Family are encouraged to report perceived risks to care and to ask questions if they do not understand what they are told or what they should do.
[2023-02-24 22:18] LABS: Lactic Acid 1.1 mmol/L (0.7-2.0)
[2023-02-25] VITALS (17 sets, daily range): BP systolic 87–144; BP diastolic 33–89; PULSE 76–93; RESP 10–18; TEMP 35.9–36.4; O2SAT 93–100
[2023-02-25] MEDS: ZOLPIDEM TARTRATE (*CRX) 5 MG TABLET PO ×2 (00:33→20:48)
[2023-02-25] MEDS: GABAPENTIN 300 MG CAPSULE PO ×2 (00:33→20:48)
[2023-02-25] MEDS: PARoxetine 20 MG TABLET PO ×2 (00:33→20:48)
[2023-02-25 00:38] LABS: Anion Gap 10 mmol/L (8-16); Blood Urea Nitrogen 11 mg/dL (7-17); Calcium 7.1 mg/dL (8.4-10.2); Carbon Dioxide 25 mmol/L (22-30); Chloride 99 mmol/L (98-107); Estimated CRCL calculation 75 ml/min; Estimated Glomerular Filt Rate > 60; Glucose 172 mg/dL (65-110); Potassium 2.8 mmol/L (3.4-5.0); Sodium 134 mmol/L (137-145)
[2023-02-25] MEDS: POTASSIUM CHLORIDE INJ 40 MEQ in SODIUM CHLORIDE 0.9% IV 500 ML 130 MEQ IVPB (00:53)
[2023-02-25] MEDS: MORPHINE SULFATE (*CRX) 4 MG/ML INJ IV PUSH ×2 (01:28→20:55)
[2023-02-25] MEDS: SODIUM CHLORIDE 0.9% IV 1,000 ML 100 ML IV CONT ×2 (01:29→15:46)
[2023-02-25 06:16] LABS: Glucose Point of Care 188 mg/dl (65-105)
[2023-02-25 06:27] LABS: Basophils Percent Auto 0.6 % (0.2-1.2); Eosinophils Absolute Auto 0.1 K/mm3 (0-0.3); Eosinophils Percent Auto 1.7 % (0-4.4); Hematocrit 29.6 % (37.0-47.0); Hemoglobin 9.8 g/dL (12.0-15.0); Immature Granulocyte Absolute 0.07 K/mm3 (0.00-0.031); Immature Granulocyte Percent A 1.1 % (0-0.5); Lymphocytes Absolute Auto 0.56 K/mm3 (0.9-3.2); Lymphocytes Percent Auto 8.5 % (18.3-44.2); Mean Corpuscular HGB Conc 33.1 g/dl (32-36); Mean Corpuscular Hemoglobin 29.5 pg (26-34); Mean Corpuscular Volume 89.2 fl (80-100); Mean Platelet Volume 9.4 fl (7.4-10.4); Monocytes Absolute Auto 0.7 K/mm3 (0.1-0.6); Monocytes Percent Auto 10.7 % (2.6-8.5); Neutrophils Absolute Auto 5.1 K/mm3 (1.3-6.7); Neutrophils Percent Auto 77.4 % (45.5-73.1); Platelet Count Result 185 k/mm3 (150-375); Red Blood Count 3.32 M/mm3 (4.2-5.4); Red Cell Distribution Width 13.9 % (11.5-14.5); White Blood Count 6.6 K/mm3 (4.5-10.0)
[2023-02-25 06:37] LABS: Lactic Acid Reflex 0.6 mmol/L (0.7-2.0)
[2023-02-25 06:40] LABS: Lipase 175 U/L (23-300)
--- NOTE | 2023-02-25 07:40 | ECG_ITS ---
Measurements Intervals Ray Rate: 80 P: 29 NM: 171 QRS: -4 QRSD: 88 T: 37 QT: 450 QTc: 522 Interpretive Statements SINUS RHYTHM CANNOT RULE OUT SEPTAL INFARCT, AGE INDETERMINATE CONSIDER INFERIOR INFARCT, AGE INDETERMINATE PROLONGED QT INTERVAL BASELINE WANDER- I, II, AVR, AVF, V1, V3 ABNORMAL ECG COMPARED TO ECG 02/24/2023 17:24:54 NO SIGNIFICANT CHANGES Electronically Signed On 02-25-2023 19:33:02 CDT by Miguelito Marquez D.O.
[2023-02-25 08:02] LABS: Albumin Level 2.5 g/dL (3.5-5.1)
[2023-02-25 08:09] LABS: Iron 34 ug/dL (37-170)
[2023-02-25 08:15] LABS: Transferrin 131 mg/dL (206-381)
[2023-02-25 08:18] LABS: Percent Iron Saturation 13 % (20-50)
[2023-02-25 08:22] LABS: Alanine Aminotransferase 85 U/L (6-35); Alkaline Phosphatase 247 U/L (38-126); Anion Gap 13 mmol/L (8-16); Aspartate Amino Transferase 449 U/L (14-36); Bilirubin,Total 1.2 mg/dL (0.2-1.3); Blood Urea Nitrogen 10 mg/dL (7-17); Calcium 6.9 mg/dL (8.4-10.2); Carbon Dioxide 20 mmol/L (22-30); Chloride 102 mmol/L (98-107); Estimated CRCL calculation 86 ml/min; Estimated Glomerular Filt Rate > 60; Glucose 167 mg/dL (65-110); Sodium 135 mmol/L (137-145)
[2023-02-25] MEDS: PROPRANOLOL HCL 60 MG CAPSULE CR 120 MG PO (08:28)
[2023-02-25] MEDS: PANTOPRAZOLE SODIUM IV 40 MG VIAL IV PUSH ×2 (08:28→20:48)
[2023-02-25 08:36] LABS: Hepatitis B Surface Antigen Negative (Negative)
[2023-02-25 08:42] LABS: HAV RESULT Negative (Negative); Hepatitis B Core IgM Result Negative (Negative)
[2023-02-25 08:54] LABS: Hepatitis C Virus Antibody Negative (Negative)
--- NOTE | 2023-02-25 08:59 | WPDURCON ---
Assessment and Plan Assessment and plan (1) Hydronephrosis: Qualifiers: Hydronephrosis type: with ureteropelvic junction obstruction Qualified Code(s): Q62.11 - Congenital occlusion of ureteropelvic junction Code(s): N13.30 - Unspecified hydronephrosis Status: Acute (2) Calculus of distal left ureter: Code(s): N20.1 - Calculus of ureter Status: Acute Assessment and Plan: Plan to go to the OR this morning with Dr. Mujica: Cystoscopy, left ureteral stent placement, left retrograde pyelogram. Keep NPO. Obtain Consent. Plan definitive stone management when infection resolves as an outpatient. (3) Kidney stone: Code(s): N20.0 - Calculus of kidney Status: Acute (4) Urinary tract infection: Qualifiers: Hematuria presence: with hematuria Urinary tract infection type: acute cystitis Qualified Code(s): N30.01 - Acute cystitis with hematuria Code(s): N39.0 - Urinary tract infection, site not specified Status: Acute Urology Consult Note HPI Date Seen: 02/25/23 Time Seen: 09:30 Requesting Physician: Jung Green MD Primary Care Provider: Sam Holland MD Consult Narrative Reason for consult: Left Distal Ureter Narrative: Marce Loyd is a 62 year old female who presented to the ER on for acute onset of left flank pain that radiates to the LLQ. This is accompanied by nausea, vomiting, weakness, fatigue and diarrhea. She denies hematuria and dysuria. WBC is 6.6 down from 14.2, creatinine is 0.60. UA is positive and a urine culture is pending. CT scan shows CT shows 8-9mm left UVJ stone and non obstructive bilateral stones as well as left hydronephrosis. KUB is negative. She is afebrile. Review of Systems Cardiovascular: Cardiovascular: Reports no additional cardiovascular complaints Respiratory: Respiratory: Reports no additional respiratory complaints Gastrointestinal: Gastrointestinal: Denies abdominal pain, Denies nausea and Denies vomiting Genitourinary: Genitourinary: Denies hematuria, Reports nocturia, Reports dysuria, Denies pelvic pain, Reports flank pain, Denies urinary incontinence, Denies urinary hesitancy and Reports urinary urgency [facility] Past Medical History Medical History Acute arthritis BMI 29.0-29.9,adult BMI 31.0-31.9,adult Carpal tunnel syndrome Diabetes Diabetes Hepatomegaly Hypertension Hypothyroidism (acquired) Migraine Mixed hyperlipidemia Psoriasis Type 2 diabetes mellitus without complications Surgical History Surgical History H/O cervical spine surgery Hx of cholecystectomy Family History Family History Father Hypertension Acute myocardial infarction Mother Hypertension Cerebrovascular accident Family history of diabetes mellitus in first degree relative Family history of malignant neoplasm of breast in first degree relative Acute myocardial infarction Sibling Family history of Hodgkin's lymphoma Sibling Hypertension Social History Social History Social History: The patient is single and has no children. 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 She has never smoked. She currently lives with her sister. Her sister is her durable power claim attorney for healthcare. Code status full code Smoking status: Never smoker Second hand tobacco smoke exposure: No Alcohol intake: never Substance use: never Substance use type: does not use Lack of Transportation: No Lack of Food: Never True Current Housing: I Have Housing Concerned About Future Housing: No Difficulty Paying Gas/Electric Bills: No Difficulty Paying for Meds: No Currently Unemployed: No Education: Master's Degree or Higher
--- NOTE | 2023-02-25 09:45 | PM.IMPN ---
Progress Note: A&P Assessment and Plan (1) Kidney stone: Code(s): N20.0 - Calculus of kidney Status: Acute Assessment and Plan: Presented to the ED with complaints of Nausea, vomiting, and diarrhea CT noted a UPJ stone measuring 8-9mm with left hydronephrosis Urology consulted NPO for now trend urine output IV fluids continued for now Continue ceftriaxone UA appears infectious with positive nitrates, >100 WBC, 4+ bacteria, 2+ leukocytes esterase Await further recommendations from urology (2) Hydronephrosis: Qualifiers: Hydronephrosis type: with ureteropelvic junction obstruction Qualified Code(s): Q62.11 - Congenital occlusion of ureteropelvic junction Code(s): N13.30 - Unspecified hydronephrosis Status: Acute Assessment and Plan: CT showed left sided hydronephrosis Trend urine output Secondary to UPJ stone Urology consulted Cystoscopy scheduled for this afternoon (3) Urinary tract infection: Qualifiers: Hematuria presence: with hematuria Urinary tract infection type: acute cystitis Qualified Code(s): N30.01 - Acute cystitis with hematuria Code(s): N39.0 - Urinary tract infection, site not specified Status: Acute Assessment and Plan: UA appears infectious Continue ceftriaxone for now culture pending tailor antibiotics to culture results (4) Anemia: Qualifiers: Anemia type: other cause Other causes of anemia: other cause, not classified Qualified Code(s): D64.89 - Other specified anemias Code(s): D64.9 - Anemia, unspecified Status: Acute Assessment and Plan: H/H 13.4/39.7 on arrival Currently H/H 9.8/29.6 Appears to be an iron deficiency anemia, appears acute Anemia labs iron 34, TIBC 252,% saturation 13, transferrin 131, ferritin 819, B12 73, folate 15 Add iron supplementation to start this afternoon Most likely related to dilution Trend labs Transfuse if Hgb <7.0 (5) Dehydration: Code(s): E86.0 - Dehydration Status: Acute Assessment and Plan: BUN/Cr 14/0.80 upon admission Currently 10/0.60 Related to nausea vomiting and diarrhea continue IV fluids Zofran ordered for symptom control (6) Hypokalemia: Code(s): E87.6 - Hypokalemia Status: Acute Assessment and Plan: K 2.7 on admission Currently 3.0 Replacement 40 IV and PO ordered Replace as indicated Trend K Related to vomiting and diarrhea (7) Hypomagnesemia: Code(s): E83.42 - Hypomagnesemia Status: Acute Assessment and Plan: MG 1.4 at admission Currently 2.0 Replacement given Continue to trend Mg loss related to vomiting and diarrhea (8) Prolonged QT interval: Code(s): R94.31 - Abnormal electrocardiogram [ECG] [EKG] Status: Acute Assessment and Plan: Qtc 568, 522 related to hypokalemia, related to vomiting and diarrhea Replace electrolytes repeat EKG no significant change, QTc trending down Continue tele monitor (9) Hypertension: Qualifiers: Hypertension type: primary hypertension Qualified Code(s): I10 - Essential (primary) hypertension Code(s): I10 - Essential (primary) hypertension Status: Acute Assessment and Plan: BP 144/73 Secondary to acute illness Continue to trend continue home propranolol adjust therapy as indicated (10) Hypothyroidism (acquired): Code(s): E03.9 - Hypothyroidism, unspecified Status: Acute Assessment and Plan: TSH 1.040 Continue home medications (11) Mixed hyperlipidemia: Code(s): E78.2 - Mixed hyperlipidemia Status: Acute Assessment and Plan: Home statin on hold related to transaminitis AST/ALT elevated at 61/37 and trending up Continue home
--- NOTE | 2023-02-25 09:45 | P.PNIM_ITS ---
Progress Note: A&P Assessment and Plan (1) Kidney stone: Code(s): N20.0 - Calculus of kidney Status: Acute Assessment and Plan: * Presented to the ED with complaints of Nausea, vomiting, and diarrhea * CT noted a UPJ stone measuring 8-9mm with left hydronephrosis * Urology consulted * NPO for now * trend urine output * IV fluids continued for now * Continue ceftriaxone * UA appears infectious with positive nitrates, >100 WBC, 4+ bacteria, 2+ leukocytes esterase * Await further recommendations from urology (2) Hydronephrosis: Qualifiers: Hydronephrosis type: with ureteropelvic junction obstruction Qualified Code(s): Q62.11 - Congenital occlusion of ureteropelvic junction Code(s): N13.30 - Unspecified hydronephrosis Status: Acute Assessment and Plan: * CT showed left sided hydronephrosis * Trend urine output * Secondary to UPJ stone * Urology consulted * Cystoscopy scheduled for this afternoon (3) Urinary tract infection: Qualifiers: Hematuria presence: with hematuria Urinary tract infection type: acute cystitis Qualified Code(s): N30.01 - Acute cystitis with hematuria Code(s): N39.0 - Urinary tract infection, site not specified Status: Acute Assessment and Plan: * UA appears infectious * Continue ceftriaxone for now * culture pending * tailor antibiotics to culture results (4) Anemia: Qualifiers: Anemia type: other cause Other causes of anemia: other cause, not classified Qualified Code(s): D64.89 - Other specified anemias Code(s): D64.9 - Anemia, unspecified Status: Acute Assessment and Plan: * H/H 13.4/39.7 on arrival * Currently H/H 9.8/29.6 * Appears to be an iron deficiency anemia, appears acute * Anemia labs iron 34, TIBC 252,% saturation 13, transferrin 131, ferritin 819, B12 73, folate 15 * Add iron supplementation to start this afternoon * Most likely related to dilution * Trend labs * Transfuse if Hgb <7.0 (5) Dehydration: Code(s): E86.0 - Dehydration Status: Acute Assessment and Plan: * BUN/Cr 14/0.80 upon admission * Currently 10/0.60 * Related to nausea vomiting and diarrhea * continue IV fluids * Zofran ordered for symptom control (6) Hypokalemia: Code(s): E87.6 - Hypokalemia Status: Acute Assessment and Plan: * K 2.7 on admission * Currently 3.0 * Replacement 40 IV and PO ordered * Replace as indicated * Trend K * Related to vomiting and diarrhea (7) Hypomagnesemia: Code(s): E83.42 - Hypomagnesemia Status: Acute Assessment and Plan: * MG 1.4 at admission * Currently 2.0 * Replacement given * Continue to trend * Mg loss related to vomiting and diarrhea (8) Prolonged QT interval: Code(s): R94.31 - Abnormal electrocardiogram [ECG] [EKG] Status: Acute Assessment and Plan: * Qtc 568, 522 * related to hypokalemia, related to vomiting and diarrhea * Replace electrolytes * repeat EKG no significant change, QTc trending down * Continue tele monitor (9) Hypertension: Qualifiers: Hypertension type: primary hypertension Qualified Code(s): I10 -
--- NOTE | 2023-02-25 09:57 | PC.NURSE ---
Patient to pre-op via stretcher.
[2023-02-25 10:12] LABS: Glucose Point of Care 181 mg/dl (65-105)
--- NOTE | 2023-02-25 10:26 | WPDANESEPPF ---
Anes - Initial Pre Proc Eval Procedure: Operation Date: 02/25/23 11:15 Proposed Procedures p Cystoscopy, Left Stent Placement - Noman Mujica MD Date/Time: 02/25/23 10:26 Surgeon: Jung Green MD Pre Op Diagnosis: Distal Ureteral Stone,Abnormal UA,HypoK/Mg,Dehydra Patient Data Age: 62 Gender: F Height: 1.65 m Weight: 82.4 kg Last Vital Signs Temp 36.4 C 02/25/23 05:02 Pulse 82 02/25/23 05:02 Resp 18 02/25/23 05:02 BP 112/53 L 02/25/23 05:02 Pulse Ox 98 02/25/23 05:02 O2 Del Method Room Air 02/25/23 08:00 Allergies Allergy/AdvReac Type Severity Reaction Status Date / Time prochlorperazine AdvReac Intermediate Other Verified 02/24/23 15:56 nitrofurantoin AdvReac Mild rash Verified 02/24/23 15:56 Home Medications Medication Instructions Recorded Confirmed Type paroxetine HCl 20 mg tablet (Paxil) 20 mg PO HS 12/20/19 02/24/23 History risankizumab-rzaa 150 mg/mL 150 mg subcut ONCE 10/18/22 02/24/23 History subcutaneous pen injector (Karen) meloxicam 15 mg tablet See Rx Instructions .Route 11/25/22 02/24/23 Rx .COMPLEX #90 tabs simvastatin 40 mg tablet 40 mg PO DAILY #90 tabs 12/13/22 02/24/23 Rx propranolol 120 mg capsule,24 120 mg PO DAILY #90 caps 01/17/23 02/24/23 Rx hr,extended release gabapentin 300 mg capsule 300 mg PO QHS #30 caps 02/22/23 02/24/23 Rx metformin 500 mg tablet,extended 2,000 mg PO DAILY #120 tabs 02/23/23 02/24/23 Rx release 24 hr sumatriptan succinate 100 mg 100 mg PO PRN PRN Migraine Headache 02/24/23 02/24/23 History tablet (Imitrex) zolpidem 5 mg tablet (Ambien) 5 mg PO .QHS 02/24/23 02/24/23 History Laboratory Tests 02/24/23 02/24/23 02/24/23 16:01 17:37 17:42 WBC 14.2 H K/mm3 (4.5-10.0) RBC 4.55 M/mm3 (4.2-5.4) Hgb 13.4 g/dL (12.0-15.0) Hct 39.7 % (37.0-47.0) MCV 87.3 fl (80-100) MCH 29.5 pg (26-34) MCHC 33.8 g/dl (32-36) RDW 13.6 % (11.5-14.5) Plt Count 262 k/mm3 (150-375) MPV 9.1 fl (7.4-10.4) Immature Gran % (Auto) 2.3 H % (0-0.5) Neut % (Auto) 89.9 H % (45.5-73.1) Lymph % (Auto) 2.8 L % (18.3-44.2) Gregg % (Auto) 4.2 % (2.6-8.5) Eos % (Auto) 0.1 % (0-4.4) Baso % (Auto) 0.7 % (0.2-1.2) Lymph # (Auto) 0.40 L K/mm3 (0.9-3.2) Gregg # (Auto) 0.6 K/mm3 (0.1-0.6) Eos # (Auto) 0.0 K/mm3 (0-0.3) Baso # (Auto) 0.1 K/mm3 (0.0-0.1) Abs Immat Gran (auto) 0.32 H K/mm3 (0.00-0.031) Absolute Neuts (auto) 12.7 H K/mm3 (1.3-6.7) Absolute Nucleated RBC 0.0 K/mm3 (0.0-0.012) Nucleated RBC % 0.0 % (0.0-0.2) Sodium 133 L mmol/L (137-145) Potassium 2.7 L* mmol/L (3.4-5.0) Chloride 87 L mmol/L (98-107) Carbon Dioxide 29 mmol/L (22-30) Anion Gap 17 H mmol/L (8-16) BUN 14 mg/dL (7-17) Creatinine 0.80 mg/dL (0.7-1.0) Estim Creat Clear Calc 65 ml/min Estimated GFR > 60 (59 - ) Glucose 267 H mg/dL (65-110) POC Capillary Glucose Hemoglobin A1c Lactic Acid Calcium 8.5 mg/dL (8.4-10.2) Magnesium 1.4 L mg/dL (1.6-2.3) Iron TIBC % Saturation Transferrin Ferritin Total Bilirubin 1.1 mg/dL (0.2-1.3) AST 61 H U/L (14-36) ALT 37 H U/L (6-35) Alkaline Phosphatase 250 H U/L (38-126) Total Protein 7.0 g/dL (6.3-8.2) Albumin 3.8 g/dL (3.5-5.1) Lipase 96 U/L (23-300) Vitamin B12 Folate Beta-Hydroxybutyrate/Acetoacetate 1.36 H mmol/L (0.02-0.27) TSH (Reflex) Urine Color Dark yellow (Yellow) U
[2023-02-25] MEDS: LACTATED RINGERS 1,000 ML 30 ML IV CONT ×2 (10:30→11:16)
[2023-02-25] MEDS: LIDOCAINE HCL 2% GEL UROJET 10 ML PKG MUCOUS MEM (11:02)
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
[2023-02-25 11:15] LABS: Glucose Point of Care 166 mg/dl (65-105)
--- NOTE | 2023-02-25 12:37 | PC.NURSE ---
Patient back from OR.
[2023-02-25] MEDS: POTASSIUM CHLORIDE INJ 40 MEQ in SODIUM CHLORIDE 0.9% IV 500 ML 70 MEQ IVPB (12:38)
[2023-02-25] MEDS: POTASSIUM CHLORIDE 20 MEQ ER TABLET 40 MEQ PO (12:44)
[2023-02-25 12:48] LABS: Glucose Point of Care 187 mg/dl (65-105)
--- NOTE | 2023-02-25 13:54 | PCDIET ---
Nutrition note: Screened for MST 3, -14-23 lb weight loss, +poor appetite. Per EMr weight loss of 4%/3 months, not significant for malnutrition. Pt had ureteral stent placed today and advanced to clear liquids. Follow up on Tuesday for further assessment, additional needs.
[2023-02-25 17:03] LABS: Glucose Point of Care 204 mg/dl (65-105)
[2023-02-25] MEDS: INSULIN ASPART (*BKC) 100 UNITS/ML SUB-Q ×2 (17:14→21:05)
[2023-02-25 21:15] LABS: Glucose Point of Care 211 mg/dl (65-105)
[2023-02-26] VITALS (9 sets, daily range): BP systolic 127–148; BP diastolic 61–76; PULSE 77–100; RESP 16–18; TEMP 35.9–36.4; O2SAT 96–100
[2023-02-26 05:59] LABS: Basophils Percent Auto 0.5 % (0.2-1.2); Eosinophils Absolute Auto 0.2 K/mm3 (0-0.3); Eosinophils Percent Auto 2.5 % (0-4.4); Hematocrit 30.4 % (37.0-47.0); Hemoglobin 10.2 g/dL (12.0-15.0); Immature Granulocyte Absolute 0.04 K/mm3 (0.00-0.031); Immature Granulocyte Percent A 0.7 % (0-0.5); Lymphocytes Absolute Auto 0.94 K/mm3 (0.9-3.2); Lymphocytes Percent Auto 15.4 % (18.3-44.2); Mean Corpuscular HGB Conc 33.6 g/dl (32-36); Mean Corpuscular Hemoglobin 29.4 pg (26-34); Mean Corpuscular Volume 87.6 fl (80-100); Mean Platelet Volume 9.5 fl (7.4-10.4); Monocytes Absolute Auto 0.7 K/mm3 (0.1-0.6); Monocytes Percent Auto 10.9 % (2.6-8.5); Neutrophils Absolute Auto 4.3 K/mm3 (1.3-6.7); Platelet Count Result 225 k/mm3 (150-375); Red Blood Count 3.47 M/mm3 (4.2-5.4); Red Cell Distribution Width 13.9 % (11.5-14.5); White Blood Count 6.1 K/mm3 (4.5-10.0)
[2023-02-26 06:27] LABS: Alanine Aminotransferase 77 U/L (6-35); Albumin Level 2.7 g/dL (3.5-5.1); Alkaline Phosphatase 276 U/L (38-126); Anion Gap 5 mmol/L (8-16); Aspartate Amino Transferase 163 U/L (14-36); Bilirubin,Total 0.6 mg/dL (0.2-1.3); Blood Urea Nitrogen 4 mg/dL (7-17); Calcium 7.2 mg/dL (8.4-10.2); Carbon Dioxide 24 mmol/L (22-30); Chloride 102 mmol/L (98-107); Estimated CRCL calculation 102 ml/min; Estimated Glomerular Filt Rate > 60; Glucose 185 mg/dL (65-110); Magnesium 1.6 mg/dL (1.6-2.3); Potassium 3.1 mmol/L (3.4-5.0); Sodium 131 mmol/L (137-145)
[2023-02-26 08:26] LABS: Glucose Point of Care 205 mg/dl (65-105)
[2023-02-26] MEDS: PROPRANOLOL HCL 60 MG CAPSULE CR 120 MG PO (08:46)
[2023-02-26] MEDS: POTASSIUM CHLORIDE 20 MEQ ER TABLET 40 MEQ PO ×2 (08:47→12:11)
[2023-02-26] MEDS: PANTOPRAZOLE SODIUM IV 40 MG VIAL IV PUSH ×2 (08:47→20:12)
[2023-02-26] MEDS: MAGNESIUM SULF 2 GM/WATER 50ML 2 GM/50 ML BAG IVPB (08:48)
[2023-02-26] MEDS: INSULIN ASPART (*BKC) 100 UNITS/ML SUB-Q ×2 (08:49→12:54)
[2023-02-26 12:15] LABS: Glucose Point of Care 208 mg/dl (65-105)
--- NOTE | 2023-02-26 12:49 | WPDUROPN2 ---
Progress Note: A&P Assessment and Plan (1) Hydronephrosis: Qualifiers: Hydronephrosis type: with ureteropelvic junction obstruction Qualified Code(s): Q62.11 - Congenital occlusion of ureteropelvic junction Code(s): N13.30 - Unspecified hydronephrosis Status: Acute Assessment and Plan: s/p stent placement prelim culture with > 100K GNR continue abx, await specificity out patient stone management when urine has cleared. pt understands stent is temporary and needs removal (2) Kidney stone: Code(s): N20.0 - Calculus of kidney Status: Acute Subjective Subjective Date/Time Seen: 02/26/23 12:49 Interval history: pain improved, no GH or dysuria. No N/V /F/C. NAEO. Review of Systems Constitutional: Constitutional: Reports as per HPI Respiratory: Respiratory: Reports no additional respiratory complaints Gastrointestinal: Gastrointestinal: Reports no additional gastrointestinal complaints Genitourinary: Genitourinary: Reports as per HPI Musculoskeletal: Musculoskeletal: Reports no additional musculoskeletal complaints Integumentary/Breasts: Skin/Breast: Reports as per HPI Exam Const: General: healthy appearing, comfortable and no acute distress HENMT: Head: normal to inspection, normocephalic and atraumatic Eyes: General: appearance normal, both eyes and all related structures Resp: Effort & Inspection: normal respiratory effort and able to speak in complete sentences GI: Inspection: normal to inspection and non-distended Neuro: General: oriented to person, oriented to place and oriented to time Objective Data Vital Signs Vital Signs: Vital Signs - 24 hr 02/25/23 13:08 02/25/23 16:00 02/25/23 18:15 Temperature 36.1 C L 36.4 C L Pulse Rate 79 79 86 Respiratory Rate 18 18 Blood Pressure 134/55 L 143/62 H Pulse Oximetry 100 99 Oxygen Delivery 02/25/23 20:00 02/25/23 20:00 02/25/23 20:00 Temperature 35.9 C L Pulse Rate 83 93 93 Respiratory Rate 18 18 Blood Pressure 140/64 Pulse Oximetry 100 100 Oxygen Delivery Room Air 02/26/23 00:00 02/26/23 00:00 02/26/23 04:00 Temperature 36.0 C L Pulse Rate 78 93 80 Respiratory Rate 18 Blood Pressure 127/64 Pulse Oximetry 100 Oxygen Delivery 02/26/23 04:00 02/26/23 08:44 02/26/23 08:46 Temperature 35.9 C L Pulse Rate 81 79 79 Respiratory Rate 16 Blood Pressure 136/61 148/74 H Pulse Oximetry 96 97 Oxygen Delivery 02/26/23 08:30 02/26/23 08:30 Temperature Pulse Rate 79 Respiratory Rate Blood Pressure Pulse Oximetry Oxygen Delivery Room Air Intake/Output Intake/Output: Intake & Output 02/23/23 02/24/23 02/25/23 02/26/23 23:59 23:59 23:59 23:59 Intake Total 3620 3880 470 Output Total 4100 1800 Balance 1704 -083 -8119 Meds/Results Medications: Active Medications Generic Name Dose Route Start Last Admin Trade Name Freq PRN Reason Stop Dose Admin Dextrose 12.5 gm 02/25/23 01:01 Dextrose 50% 25 Gm/50 Ml Syringe IV PUSH PRN PRN Hypoglycemia Protocol Gabapentin 300 mg 02/25/23 00:25 02/25/23 20:48 Gabapentin 300 Mg Capsule PO 300 mg QHS LINCOLN Administration Glucagon 1 mg 02/25/23 01:01 Glucagon For Inj 1 Mg Vial IM PRN PRN Hypoglycemia Protocol Glucose 15 gm 02/25/23 01:01 Glucose Oral Gel 15 Gm Of Glucse In 37.5 Gm Tube PO PRN PRN Hypoglycemia Protocol Ceftriaxone Sodium 1 gm in 50 mls @ 100 mls/hr 02/25/23 18:00 02/25/23 17:26 Rocephin 1 Gm/Ns 50 Ml IVPB Infused Q24H [place] Infusion Dextrose 1,000 mls @ 100 mls/hr 02/25/23 01:01 Dextrose 5% 1,000 Ml IVPB PRN PRN Hypoglycemia Protocol Sodium Chloride 1,000 mls @ 100 mls/hr 02/25/23 01:10 02/25/23 15:46 Normal Saline Iv IV CONT 100 mls/hr .Q10H [place]N Administration Insulin Aspart 2 - 5 units 02/25/23 08:00 02/26/23 08:49 Insulin Aspart (*Bkc) 100 U
--- NOTE | 2023-02-26 15:23 | P.PNIM_ITS ---
Progress Note: A&P Assessment and Plan (1) Kidney stone: Code(s): N20.0 - Calculus of kidney Status: Acute Assessment and Plan: * Presented to the ED with complaints of Nausea, vomiting, and diarrhea * CT noted a UPJ stone measuring 8-9mm with left hydronephrosis * Urology placed stent 02/25/23 and she tolerated it well (2) Hydronephrosis: Qualifiers: Hydronephrosis type: with ureteropelvic junction obstruction Qualified Code(s): Q62.11 - Congenital occlusion of ureteropelvic junction Code(s): N13.30 - Unspecified hydronephrosis Status: Acute Assessment and Plan: * CT showed left sided hydronephrosis * Trend urine output * Secondary to UPJ stone * Urology consulted * Cystoscopy with stent 02/25/23 (3) Urinary tract infection: Qualifiers: Urinary tract infection type: acute cystitis Hematuria presence: with hematuria Qualified Code(s): N30.01 - Acute cystitis with hematuria Code(s): N39.0 - Urinary tract infection, site not specified Status: Acute Assessment and Plan: * C/s with GNR, await ID/sens * Continue ceftriaxone for now (4) Anemia: Qualifiers: Anemia type: other cause Other causes of anemia: other cause, not classified Qualified Code(s): D64.89 - Other specified anemias Code(s): D64.9 - Anemia, unspecified Status: Acute Assessment and Plan: * H/H 13.4/39.7 on arrival * 02/26/23 H/H 10.2/30.4 * Iron panel and Ferritin c/w anemia of chronic disease, not iron deficiency (5) Dehydration: Code(s): E86.0 - Dehydration Status: Acute Assessment and Plan: * BUN/Cr 14/0.80 upon admission * Resolved with IVF (6) Hypokalemia: Code(s): E87.6 - Hypokalemia Status: Acute Assessment and Plan: * K 2.7 on admission * 02/26 3.2, po KCL ordered (7) Hypomagnesemia: Code(s): E83.42 - Hypomagnesemia Status: Acute Assessment and Plan: * MG 1.4 at admission * 02/26/23 1.6, IV mag ordered (8) Prolonged QT interval: Code(s): R94.31 - Abnormal electrocardiogram [ECG] [EKG] Status: Acute Assessment and Plan: * Qtc 568, 522 * related to hypokalemia, * Replace K, Mag * Avoid QT prolonging drugs (Zofran stopped 02/26/23) (9) Hypertension: Qualifiers: Hypertension type: primary hypertension Qualified Code(s): I10 - Essential (primary) hypertension Code(s): I10 - Essential (primary) hypertension Status: Acute Assessment and Plan: * Reviewed 02/26 and adequately controlled (10) Hypothyroidism (acquired): Code(s): E03.9 - Hypothyroidism, unspecified Status: Acute Assessment and Plan: * TSH 1.040 * Continue home medications (11) Mixed hyperlipidemia: Code(s): E78.2 - Mixed hyperlipidemia Status: Acute Assessment and Plan: * Home statin on hold related to transaminitis * AST/ALT elevated at 61/37 and trending up * Continue home medication as indicated (12) Type 2 diabetes mellitus without complications: Qualifiers:
--- NOTE | 2023-02-26 15:23 | PM.IMPN ---
Progress Note: A&P Assessment and Plan (1) Kidney stone: Code(s): N20.0 - Calculus of kidney Status: Acute Assessment and Plan: Presented to the ED with complaints of Nausea, vomiting, and diarrhea CT noted a UPJ stone measuring 8-9mm with left hydronephrosis Urology placed stent 02/25/23 and she tolerated it well (2) Hydronephrosis: Qualifiers: Hydronephrosis type: with ureteropelvic junction obstruction Qualified Code(s): Q62.11 - Congenital occlusion of ureteropelvic junction Code(s): N13.30 - Unspecified hydronephrosis Status: Acute Assessment and Plan: CT showed left sided hydronephrosis Trend urine output Secondary to UPJ stone Urology consulted Cystoscopy with stent 02/25/23 (3) Urinary tract infection: Qualifiers: Urinary tract infection type: acute cystitis Hematuria presence: with hematuria Qualified Code(s): N30.01 - Acute cystitis with hematuria Code(s): N39.0 - Urinary tract infection, site not specified Status: Acute Assessment and Plan: C/s with GNR, await ID/sens Continue ceftriaxone for now (4) Anemia: Qualifiers: Anemia type: other cause Other causes of anemia: other cause, not classified Qualified Code(s): D64.89 - Other specified anemias Code(s): D64.9 - Anemia, unspecified Status: Acute Assessment and Plan: H/H 13.4/39.7 on arrival 02/26/23 H/H 10.2/30.4 Iron panel and Ferritin c/w anemia of chronic disease, not iron deficiency (5) Dehydration: Code(s): E86.0 - Dehydration Status: Acute Assessment and Plan: BUN/Cr 14/0.80 upon admission Resolved with IVF (6) Hypokalemia: Code(s): E87.6 - Hypokalemia Status: Acute Assessment and Plan: K 2.7 on admission 02/26 3.2, po KCL ordered (7) Hypomagnesemia: Code(s): E83.42 - Hypomagnesemia Status: Acute Assessment and Plan: MG 1.4 at admission 02/26/23 1.6, IV mag ordered (8) Prolonged QT interval: Code(s): R94.31 - Abnormal electrocardiogram [ECG] [EKG] Status: Acute Assessment and Plan: Qtc 568, 522 related to hypokalemia, Replace K, Mag Avoid QT prolonging drugs (Zofran stopped 02/26/23) (9) Hypertension: Qualifiers: Hypertension type: primary hypertension Qualified Code(s): I10 - Essential (primary) hypertension Code(s): I10 - Essential (primary) hypertension Status: Acute Assessment and Plan: Reviewed 02/26 and adequately controlled (10) Hypothyroidism (acquired): Code(s): E03.9 - Hypothyroidism, unspecified Status: Acute Assessment and Plan: TSH 1.040 Continue home medications (11) Mixed hyperlipidemia: Code(s): E78.2 - Mixed hyperlipidemia Status: Acute Assessment and Plan: Home statin on hold related to transaminitis AST/ALT elevated at 61/37 and trending up Continue home medication as indicated (12) Type 2 diabetes mellitus without complications: Qualifiers: Diabetes 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 insulin 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: without intermediate use Qualified Code(s): E11.9 - Type 2 diabetes mellitus without complications Code(s): E11.9 - Type 2 diabetes mellitus without complications Status: Acute Assessment and Plan: Hgb A1c 10.0 ISS natural resources extension educator consulted Accu cheks AC/HS hypoglycemia protocol 02/26/23 glucose 185, metformin resumed Will likely need second agent added by PCP (13) Lactic acidosis: Code(s): E87.20 - Acidosis, unspecified Status: Acute Assessment and Plan: Lactic elevated at time of arrival 2.6 Resolved (14) Transaminitis: Code(s): R74.01 - Elevation of levels of liver transaminase level
[2023-02-26] MEDS: SODIUM CHLORIDE 0.9% IV 1,000 ML 100 ML IV CONT ×2 (15:28→22:10)
[2023-02-26 17:25] LABS: Glucose Point of Care 198 mg/dl (65-105)
[2023-02-26 19:51] LABS: Glucose Point of Care 189 mg/dl (65-105)
[2023-02-26] MEDS: ZOLPIDEM TARTRATE (*CRX) 5 MG TABLET PO (20:12)
[2023-02-26] MEDS: PARoxetine 20 MG TABLET PO (20:13)
[2023-02-26] MEDS: GABAPENTIN 300 MG CAPSULE PO (20:13)
[2023-02-26] MEDS: MORPHINE SULFATE (*CRX) 4 MG/ML INJ IV PUSH (22:10)
[2023-02-27] VITALS: BP 150/73; PULSE 75; PULSE 82; RESP 18; TEMP 36.4; O2SAT 90
[2023-02-27 04:00] VITALS: BP 154/67; PULSE 80; PULSE 85; RESP 18; TEMP 36.2; O2SAT 100
[2023-02-27] MEDS: SUMAtriptan SUCCINATE 25 MG TABLET 100 MG PO (05:23)
[2023-02-27 05:24] LABS: Hematocrit 32.8 % (37.0-47.0); Hemoglobin 10.8 g/dL (12.0-15.0); Mean Corpuscular HGB Conc 32.9 g/dl (32-36); Mean Corpuscular Volume 88.2 fl (80-100); Mean Platelet Volume 9.5 fl (7.4-10.4); Platelet Count Result 262 k/mm3 (150-375); Red Blood Count 3.72 M/mm3 (4.2-5.4); Red Cell Distribution Width 13.8 % (11.5-14.5); White Blood Count 5.5 K/mm3 (4.5-10.0)
[2023-02-27 05:48] LABS: Alanine Aminotransferase 51 U/L (6-35); Albumin Level 3.1 g/dL (3.5-5.1); Alkaline Phosphatase 260 U/L (38-126); Anion Gap 7 mmol/L (8-16); Aspartate Amino Transferase 48 U/L (14-36); Bilirubin,Total 0.5 mg/dL (0.2-1.3); Blood Urea Nitrogen 5 mg/dL (7-17); Calcium 7.6 mg/dL (8.4-10.2); Carbon Dioxide 25 mmol/L (22-30); Chloride 101 mmol/L (98-107); Estimated CRCL calculation 102 ml/min; Estimated Glomerular Filt Rate > 60; Glucose 210 mg/dL (65-110); Magnesium 1.7 mg/dL (1.6-2.3); Potassium 3.4 mmol/L (3.4-5.0); Sodium 133 mmol/L (137-145)
[2023-02-27] MEDS: SODIUM CHLORIDE 0.9% IV 1,000 ML 100 ML IV CONT (06:42)
[2023-02-27 08:00] VITALS: BP 155/69; PULSE 72; RESP 18; TEMP 36.2; O2SAT 98
[2023-02-27 08:37] LABS: Glucose Point of Care 240 mg/dl (65-105)
[2023-02-27] MEDS: POTASSIUM CHLORIDE 20 MEQ ER TABLET 40 MEQ PO ×2 (08:38→12:05)
[2023-02-27] MEDS: metFORMIN HCL XR 500 MG TAB.SR.24H 2000 MG PO (08:38)
[2023-02-27] MEDS: PANTOPRAZOLE SODIUM IV 40 MG VIAL IV PUSH (08:38)
[2023-02-27] MEDS: MAGNESIUM SULF 2 GM/WATER 50ML 2 GM/50 ML BAG IVPB (08:38)
[2023-02-27 08:39] VITALS: PULSE 80
[2023-02-27] MEDS: PROPRANOLOL HCL 60 MG CAPSULE CR 120 MG PO (08:39)
[2023-02-27 08:45] VITALS: PULSE 69; O2SAT 95
[2023-02-27] MEDS: INSULIN ASPART (*BKC) 100 UNITS/ML SUB-Q ×2 (08:45→12:03)
--- NOTE | 2023-02-27 11:37 | WPDUROPN2 ---
Progress Note: A&P Assessment and Plan (1) Hydronephrosis: Qualifiers: Hydronephrosis type: with ureteropelvic junction obstruction Qualified Code(s): Q62.11 - Congenital occlusion of ureteropelvic junction Code(s): N13.30 - Unspecified hydronephrosis Status: Acute (2) Kidney stone: Code(s): N20.0 - Calculus of kidney Status: Acute Assessment and Plan: s/p stent placement. CR normal U cx with Pans S Klebsiella -ok to d/c needs outpt stone treatment after urine treated. ok to dc on culture specific abx and followup in 1-2 weeks to stone schedule surgery -pt understands stent is temporary and needs removal in near future (3) Calculus of distal left ureter: Code(s): N20.1 - Calculus of ureter Status: Acute Subjective Subjective Date/Time Seen: 02/27/23 11:37 Interval history: no pain wants to go home. NAEO. No F/c/cp/sob Review of Systems Constitutional: Constitutional: Reports as per HPI Cardiovascular: Cardiovascular: Reports no additional cardiovascular complaints Respiratory: Respiratory: Reports no additional respiratory complaints Gastrointestinal: Gastrointestinal: Reports no additional gastrointestinal complaints, Denies abdominal pain, Denies nausea and Denies vomiting Genitourinary: Genitourinary: Reports as per HPI, Denies hematuria, Reports nocturia, Reports dysuria, Denies pelvic pain, Reports flank pain, Denies urinary incontinence, Denies urinary hesitancy and Reports urinary urgency Musculoskeletal: Musculoskeletal: Reports no additional musculoskeletal complaints Integumentary/Breasts: Skin/Breast: Reports as per HPI Exam Const: General: cooperative, healthy appearing, comfortable and no acute distress Orientation/consciousness: oriented to person, oriented to place and oriented to time HENMT: Head: normal to inspection, normocephalic and atraumatic Eyes: General: appearance normal, both eyes and all related structures Resp: Effort & Inspection: normal respiratory effort and able to speak in complete sentences Cardio: Rate: regular rate GI: Inspection: normal to inspection and non-distended : General: Yes CVA tenderness on the left Back/Spine/Pelvis: Back: CVA tenderness Neuro: General: oriented to person, oriented to place and oriented to time Extrem: Right lower extremity: no edema Left lower extremity: no edema Objective Data Vital Signs Vital Signs: Vital Signs - 24 hr 02/26/23 12:00 02/26/23 12:00 02/26/23 15:51 Temperature 36.1 C L 36.1 C L Pulse Rate 79 79 77 Respiratory Rate 18 18 Blood Pressure 147/76 H 147/74 H Pulse Oximetry 100 100 Oxygen Delivery 02/26/23 16:00 02/26/23 20:00 02/26/23 20:00 Temperature 36.4 C Pulse Rate 77 80 100 Respiratory Rate 18 Blood Pressure 148/70 H Pulse Oximetry 100 Oxygen Delivery 02/26/23 20:00 02/27/23 00:00 02/27/23 00:00 Temperature 36.4 C Pulse Rate 100 82 75 Respiratory Rate 17 18 Blood Pressure 150/73 H Pulse Oximetry 99 90 Oxygen Delivery Room Air 02/27/23 04:00 02/27/23 04:00 02/27/23 08:39 Temperature 36.2 C L Pulse Rate 85 80 80 Respiratory Rate 18 Blood Pressure 154/67 H Pulse Oximetry 100 Oxygen Delivery 02/27/23 08:00 Temperature 36.2 C L Pulse Rate 72 Respiratory Rate 18 Blood Pressure 155/69 H Pulse Oximetry 98 Oxygen Delivery Intake/Output Intake/Output: Intake & Output 02/24/23 02/25/23 02/26/23 02/27/23 23:59 23:59 23:59 23:59 Intake Total 3620 3880 3680 1220 Output Total 4100 2400 Balance 3620 -220 1280 1220 Meds/Results Medications: Active Medications Generic Name Dose Route Start Last Admin Trade Name Freq PRN Reason Stop Dose Admin Dextrose 12.5 gm 02/25/23 01:01 Dextrose 50% 25 Gm/50 Ml Syringe IV PUSH PRN PRN Hypoglycemia Protocol Gabapentin 300 mg 02/25/23 00:25 02/26/23 20:13 Gabapentin 300 Mg Capsule PO 300 mg
[2023-02-27 11:59] LABS: Glucose Point of Care 231 mg/dl (65-105)
[2023-02-27 12:00] VITALS: PULSE 80
--- NOTE | 2023-02-27 13:02 | P.DS_ITS ---
DS: Admitting Diagnosis Discharge Date 02/27/2023 Admitting Diagnosis Calculus of less distal ureter with associated Klebsiella pneumonia urinary tract infection DS: Discharge Diagnosis Discharge Diagnosis (1) Kidney stone: Code(s): N20.0 - Calculus of kidney Status: Acute Assessment and Plan: * Presented to the ED with complaints of Nausea, vomiting, and diarrhea * CT noted a UPJ stone measuring 8-9mm with left hydronephrosis * Urology placed stent 02/25/23 and she tolerated it well (2) Hydronephrosis: Qualifiers: Hydronephrosis type: with ureteropelvic junction obstruction Qualified Code(s): Q62.11 - Congenital occlusion of ureteropelvic junction Code(s): N13.30 - Unspecified hydronephrosis Status: Acute Assessment and Plan: * CT showed left sided hydronephrosis * Trend urine output * Secondary to UPJ stone * Urology consulted * Cystoscopy with stent 02/25/23 (3) Urinary tract infection: Qualifiers: Hematuria presence: with hematuria Urinary tract infection type: acute cystitis Qualified Code(s): N30.01 - Acute cystitis with hematuria Code(s): N39.0 - Urinary tract infection, site not specified Status: Acute Assessment and Plan: * Ceftriaxone 02/24-02/27 * Klebsiella pneumoniae on culture * Discharge on Bactrim DS for 5 additional days (4) Anemia: Qualifiers: Anemia type: other cause Other causes of anemia: other cause, not classified Qualified Code(s): D64.89 - Other specified anemias Code(s): D64.9 - Anemia, unspecified Status: Acute Assessment and Plan: * H/H 13.4/39.7 on arrival * 02/26/23 H/H 10.2/30.4 * Iron panel and Ferritin c/w anemia of chronic disease (5) Dehydration: Code(s): E86.0 - Dehydration Status: Acute Assessment and Plan: * BUN/Cr 14/0.80 upon admission * Resolved with IVF (6) Hypokalemia: Code(s): E87.6 - Hypokalemia Status: Acute Assessment and Plan: * K 2.7 on admission * 02/26 3.2, po KCL ordered * 02/27 3.4, po KCL ordered (7) Hypomagnesemia: Code(s): E83.42 - Hypomagnesemia Status: Acute Assessment and Plan: * MG 1.4 at admission * 02/26/23 1.6, IV mag ordered, 02/27 1.7 IV mag repeated (8) Prolonged QT interval: Code(s): R94.31 - Abnormal electrocardiogram [ECG] [EKG] Status: Acute Assessment and Plan: * Qtc 568, 522 * related to hypokalemia, * Replaced K, Mag * Avoid QT prolonging drugs (Zofran stopped 02/26/23) (9) Hypertension: Qualifiers: Hypertension type: primary hypertension Qualified Code(s): I10 - Essential (primary) hypertension Code(s): I10 - Essential (primary) hypertension Status: Acute Assessment and Plan: * Reviewed 02/27 and adequately controlled (10) Hypothyroidism (acquired): Code(s): E03.9 - Hypothyroidism, unspecified Status: Acute Assessment and Plan: * TSH 1.040 * Continue home medications (11) Mixed hyperlipidemia: Code(s): E78.2 - Mixed hyperlipidemia Status: Acute A
--- NOTE | 2023-02-27 13:02 | PM.DS ---
DS: Admitting Diagnosis Discharge Date 02/27/2023 Admitting Diagnosis Calculus of less distal ureter with associated Klebsiella pneumonia urinary tract infection DS: Discharge Diagnosis Discharge Diagnosis (1) Kidney stone: Code(s): N20.0 - Calculus of kidney Status: Acute Assessment and Plan: Presented to the ED with complaints of Nausea, vomiting, and diarrhea CT noted a UPJ stone measuring 8-9mm with left hydronephrosis Urology placed stent 02/25/23 and she tolerated it well (2) Hydronephrosis: Qualifiers: Hydronephrosis type: with ureteropelvic junction obstruction Qualified Code(s): Q62.11 - Congenital occlusion of ureteropelvic junction Code(s): N13.30 - Unspecified hydronephrosis Status: Acute Assessment and Plan: CT showed left sided hydronephrosis Trend urine output Secondary to UPJ stone Urology consulted Cystoscopy with stent 02/25/23 (3) Urinary tract infection: Qualifiers: Hematuria presence: with hematuria Urinary tract infection type: acute cystitis Qualified Code(s): N30.01 - Acute cystitis with hematuria Code(s): N39.0 - Urinary tract infection, site not specified Status: Acute Assessment and Plan: Ceftriaxone 02/24-02/27 Klebsiella pneumoniae on culture Discharge on Bactrim DS for 5 additional days (4) Anemia: Qualifiers: Anemia type: other cause Other causes of anemia: other cause, not classified Qualified Code(s): D64.89 - Other specified anemias Code(s): D64.9 - Anemia, unspecified Status: Acute Assessment and Plan: H/H 13.4/39.7 on arrival 02/26/23 H/H 10.2/30.4 Iron panel and Ferritin c/w anemia of chronic disease (5) Dehydration: Code(s): E86.0 - Dehydration Status: Acute Assessment and Plan: BUN/Cr 14/0.80 upon admission Resolved with IVF (6) Hypokalemia: Code(s): E87.6 - Hypokalemia Status: Acute Assessment and Plan: K 2.7 on admission 02/26 3.2, po KCL ordered 02/27 3.4, po KCL ordered (7) Hypomagnesemia: Code(s): E83.42 - Hypomagnesemia Status: Acute Assessment and Plan: MG 1.4 at admission 02/26/23 1.6, IV mag ordered, 02/27 1.7 IV mag repeated (8) Prolonged QT interval: Code(s): R94.31 - Abnormal electrocardiogram [ECG] [EKG] Status: Acute Assessment and Plan: Qtc 568, 522 related to hypokalemia, Replaced K, Mag Avoid QT prolonging drugs (Zofran stopped 02/26/23) (9) Hypertension: Qualifiers: Hypertension type: primary hypertension Qualified Code(s): I10 - Essential (primary) hypertension Code(s): I10 - Essential (primary) hypertension Status: Acute Assessment and Plan: Reviewed 02/27 and adequately controlled (10) Hypothyroidism (acquired): Code(s): E03.9 - Hypothyroidism, unspecified Status: Acute Assessment and Plan: TSH 1.040 Continue home medications (11) Mixed hyperlipidemia: Code(s): E78.2 - Mixed hyperlipidemia Status: Acute Assessment and Plan: Home statin on hold related to transaminitis AST/ALT trending down Resume statin (12) Type 2 diabetes mellitus without complications: Qualifiers: Diabetes mellitus group home insulin use: without buttermaker continuous churn use Qualified Code(s): E11.9 - Type 2 diabetes mellitus without complications Code(s): E11.9 - Type 2 diabetes mellitus without complications Status: Acute Assessment and Plan: Hgb A1c 10.0 ISS certified adaptive physical educator consulted Bonnie chamorro AC/HS hypoglycemia protocol 02/26/23 glucose 185, metformin resumed, 02/27 210 Will likely need second agent added by PCP (13) Lactic acidosis: Code(s): E87.20 - Acidosis, unsp
--- NOTE | 2023-02-28 13:41 | PCCDE ---
02/28/23: Unable to see her while inpatient - was at US and PACU (2x) Spoke to patient today by phone, answered questions re: target BGs was familiar with target A1C, discussed ideas to replace soda (drinks 7 up and doesn't want diet). Patient is open to outpatient DSMT and MNT. Reached out to DSMT office to fax PCP for referral to OP. FJ
== END 2023-02-27 14:15 | disposition home or self-care (01) ==
LOC: ANHED 18:31 → ANH2MED 02-25 07:21
PROVIDERS: Emergency Medicine; Nurse Practitioner; Urology; Admitting Provider Internal Medicine; Emergency Provider Physician Assistant; PCP Family Medicine; Visit Provider Internal Medicine
PROC: (CPT 52352; principal; 2023-02-25 11:15)
DX: N13.2 Hydronephrosis with renal and ureteral calculous obstruction (principal); Q62.11 Congenital occlusion of ureteropelvic junction; N30.01 Acute cystitis with hematuria; B96.1 Klebsiella pneumoniae [K. pneumoniae] as the cause of diseases classified elsewhere; K76.89 Other specified diseases of liver; L40.9 Psoriasis, unspecified; D64.89 Other specified anemias; I10 Essential (primary) hypertension; Z20.822 Contact with and (suspected) exposure to COVID-19; Z90.49 Acquired absence of other specified parts of digestive tract; G43.909 Migraine, unspecified, not intractable, without status migrainosus; M79.10 Myalgia, unspecified site; E86.0 Dehydration; E87.6 Hypokalemia; E87.1 Hypo-osmolality and hyponatremia; E66.9 Obesity, unspecified; Z68.30 Body mass index [BMI] 30.0-30.9, adult; D72.829 Elevated white blood cell count, unspecified; E83.42 Hypomagnesemia; R94.31 Abnormal electrocardiogram [ECG] [EKG]; E03.9 Hypothyroidism, unspecified; E78.2 Mixed hyperlipidemia; E11.9 Type 2 diabetes mellitus without complications; E87.20 Acidosis, unspecified; R74.01 Elevation of levels of liver transaminase levels; F10.90 Alcohol use, unspecified, uncomplicated; Z79.84 Long term (current) use of oral hypoglycemic drugs; Z79.899 Other long term (current) drug therapy; Z82.49 Family history of ischemic heart disease and other diseases of the circulatory system; Z82.3 Family history of stroke; Z83.438 Family history of other disorder of lipoprotein metabolism and other lipidemia
CPT/HCPCS: 52351; 52332; 36415; 74018; 74177; 74420; 76705; 80048; 80053; 80074; 81001; 82010; 82607; 82728; 82746; 82948; 83036; 83540; 83550; 83605; 83690; 83735; 84443; 84466; 85025; 85027; 87077; 87086; 87186; 87636; 93005; 96361; 96365; 96366; 96367; 96368; 96375; 99285; A9270; C1758; C1769; C2617; C9113; G0378; J0696; J1815; J2270; J2704; J3010; J3475; J3480; J7030; J7040; J7120; Q9966; Q9967

== ENCOUNTER 2023-03-24 01:01 | Day surgery (SDC) | payer OTHER, SELFPAY ==
--- NOTE | 2023-03-23 07:01 | PM.HPGS ---
History of Present Illness History of Present Illness Consent: Risks, benefits, and alternatives have been discussed and questions answered. Patient agrees to proceed with procedure. Chief complaint: left renal stone Narrative: Marce Loyd is a 62 year old female Recently had a left ureteral stent placed by Dr. Mujica for a 9 mm left distal ureteral calculus. She now presents for definitive management with cystoscopy, left ureteroscopy, possible laser lithotripsy, retrograde pyelography and stent replacement. She is aware the risks including, but not limited to, adverse cardiopulmonary events, need for additional procedures, ureteral injury and hematuria. Review of Systems Review of Systems: All systems reviewed & are unremarkable except as noted in HPI and below PMFSH Past Medical History Medical History (Updated 03/02/23 @ 10:59 by DANIEL Bonilla) Acute arthritis BMI 28.0-28.9,adult BMI 29.0-29.9,adult BMI 31.0-31.9,adult Carpal tunnel syndrome Diabetes Diabetes Hepatomegaly Hypertension Hypothyroidism (acquired) Migraine Mixed hyperlipidemia Psoriasis Type 2 diabetes mellitus without complications Ureteral stent present Surgical History Surgical History H/O cervical spine surgery Hx of cholecystectomy Family History Family History Father Hypertension Acute myocardial infarction Heart disease Hyperlipidemia Mother Hypertension Cerebrovascular accident Family history of diabetes mellitus in first degree relative Family history of malignant neoplasm of breast in first degree relative Acute myocardial infarction Sibling Family history of Hodgkin's lymphoma Sibling Hypertension Diabetes mellitus Social History Social History (Updated 03/02/23 @ 11:01 by DANIEL Bonilla) Social History: The patient is single and has no children. 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 She has never smoked. She currently lives with her sister. Her sister is her durable power compliance attorney for healthcare. 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[employer] Gender identity (if verbalized by the patient): Female Spiritual care concerns: No Meds Home Medications and Allergies Home Medications Medication Instructions Recorded Confirmed Type paroxetine HCl 20 mg tablet (Paxil) 20 mg PO HS 12/20/19 02/24/23 History risankizumab-rzaa 150 mg/mL 150 mg subcut ONCE 10/18/22 02/24/23 History subcutaneous pen injector (Skyrizi) propranolol 120 mg capsule,24 120 mg PO DAILY #90 caps 01/17/23 02/24/23 Rx hr,extended release gabapentin 300 mg capsule 300 mg PO QHS #30 caps 02/22/23 02/24/23 Rx metformin 500 mg tablet,extended 2,000 mg PO DAILY #120 tabs 02/23/23 02/24/23 Rx release 24 hr sumatriptan succinate 100 mg 100 mg PO PRN PRN Migraine Headache 02/24/23 02/24/23 History tablet (Imitrex) acetaminophen 500 mg tablet 500 mg PO Q6H PRN pain #30 tabs 02/27/23 Rx sulfamethoxazole 800 1 tablet PO Q12H #10 tabs 02/27/23 Rx mg-trimethoprim 160 mg tablet (Bactrim DS) blood sugar diagnostic (Blood #50 ea 03/02/23 03/02/23 Rx Glucose Test strips) blood-glucose meter #1 ea 03/02/23 03/02/23 Rx lancets #100 ea 03/02/23 03/02/23 Rx meloxicam 15 mg
[2023-03-23 09:44] VITALS: BMI 28.3
--- NOTE | 2023-03-23 09:48 | PC.NURSE ---
Report to the Outpatient Waiting Room, entrance under the green pavilion located off [facility], at time 0715 on date 03/24/23. Planned Procedure Time: 09. Time changes happen often and if your time is changed the preop area will call you the afternoon before. - You and your visitor will be asked to self-screen and do not enter if you have any COVID symptoms. - A mask is optional within the hospital at this time. Patients may have clear liquids (water, carbonated beverages, clear teas, apple juice) until 3 hours prior to surgery with a maximum of 20 ounces. - No food from midnight until time of surgery Take the following medications with a SIP of water the morning of surgery: PROPRANOLOL, TYLENOL IF NEEDED DO NOT STOP ANY OF YOUR OTHER PRESCRIPTION MEDICATIONS PRIOR TO SURGERY ?EXCEPT THE FOLLOWING Medications to discontinue per physician: N/A Date to take last dose: N/A Please no make-up, nail czech, hairspray, perfume, deodorant, or body powder the day of surgery. No jewelry (including any body piercings) or valuables the day of surgery, leave them at home. Please take a shower or bath the night before, or the morning of, surgery with an antibacterial soap. Wear comfortable, loose fitting clothing. - Jewelry must be removed prior to entering the operating room. Rings and piercings that are not removed may be cut off. - The hospital will not accept responsibility for valuables. - Please leave all valuables, including medications, at home the day of surgery. If you are going home after surgery, a licensed driver education instructor must drive you home. - NO public transportation without another adult if you receive anesthesia. - We recommend that an adult stay with you for 24 hours following discharge. - We also recommend that you do not drive, make important decision, drink alcoholic beverages, or take any drugs that were not prescribed by your health care provider for at least 24 hours after your discharge time. Follow any additional instructions given to you from your surgeon. If you or anyone in your household have experienced Covid symptoms in the past week, please notify your surgeon or the nurse liaison at the phone number below for possible testing. Telephone instructions given to CASEY DRAPER and asked if any additional questions and then verbalized understanding. Patient advised to call surgeon office or pre surgery nurse liaison [phone] if any additional questions.
--- NOTE | ~2023-03-24 | XR_ITS ---
EXAMINATION: XR retrograde pyelo w/stent LT DATE: 03/24/2023 11:00 INDICATION: Left internal ureteral stent placement TECHNIQUE: Fluoroscopic images from a left internal ureteral stent placement are submitted for review . 17 seconds of fluoroscopy time. FINDINGS: There is a left double-J internal ureteral stent projecting in expected position, with proximal [place] loop at the level of the renal pelvis and distal loop in the pelvis within the bladder lumen. IMPRESSION: 1. Left internal ureteral stent placement. Please refer to real-time procedural findings for detail s. Reviewed, dictated and finalized at location L. IMPRESSION: 1. Left internal ureteral stent placement. Please refer to real-time procedur al findings for details.
--- NOTE | 2023-03-24 06:16 | WPDHPUPDATE1 ---
History and Physical Update Update Date/Time: 03/24/23 06:16 History and Physical has been reviewed, including an updated exam of the patient. There are NO changes in the patient's condition. Risks, benefits, and alternatives have been discussed and questions answered. Patient agrees to proceed with procedure.
[2023-03-24 07:08] VITALS: BP 138/60; PULSE 74; RESP 20; TEMP 36.2; O2SAT 99
[2023-03-24 08:15] LABS: Glucose Point of Care 192 mg/dl (65-105)
[2023-03-24] MEDS: LACTATED RINGERS 1,000 ML 30 ML IV CONT (08:20)
--- NOTE | 2023-03-24 08:26 | WPDANESEPPF ---
Anes - Initial Pre Proc Eval Procedure: Operation Date: 03/24/23 09:15 Proposed Procedures p Cystoscopy, Left Ureteroscopy, Left Retrograde Pyelogram, Possible Left Stone Extraction, Possible Left Stent Placement, Possible Holmium Laser - Bernard Anrde MD Date/Time: 03/24/23 08:26 Surgeon: Bernard Andre MD Pre Op Diagnosis: left renal stone Patient Data Age: 62 Gender: F Height: 1.65 m Weight: 78.9 kg Last Vital Signs Temp 36.2 C L 03/24/23 07:08 Pulse 74 03/24/23 07:08 Resp 20 03/24/23 07:08 BP 138/60 03/24/23 07:08 Pulse Ox 99 03/24/23 07:08 O2 Del Method Room Air 03/24/23 07:08 Allergies Allergy/AdvReac Type Severity Reaction Status Date / Time prochlorperazine AdvReac Intermediate Other Verified 03/24/23 07:10 nitrofurantoin AdvReac Mild nausea/vomi Verified 03/24/23 07:10 ting Home Medications Medication Instructions Recorded Confirmed Type paroxetine HCl 20 mg tablet (Paxil) 20 mg PO HS 12/20/19 03/24/23 History risankizumab-rzaa 150 mg/mL 150 mg subcut ONCE 10/18/22 03/23/23 History subcutaneous pen injector (Skyrizi) propranolol 120 mg capsule,24 120 mg PO DAILY #90 caps 01/17/23 03/24/23 Rx hr,extended release gabapentin 300 mg capsule 300 mg PO QHS #30 caps 02/22/23 03/24/23 Rx metformin 500 mg tablet,extended 2,000 mg PO DAILY #120 tabs 02/23/23 03/24/23 Rx release 24 hr acetaminophen 500 mg tablet 500 mg PO Q6H PRN pain #30 tabs 02/27/23 03/23/23 Rx blood sugar diagnostic (Blood #50 ea 03/02/23 03/02/23 Rx Glucose Test strips) blood-glucose meter #1 ea 03/02/23 03/02/23 Rx lancets #100 ea 03/02/23 03/02/23 Rx meloxicam 15 mg tablet 15 mg PO DAILY #30 tabs 03/14/23 03/24/23 Rx simvastatin 40 mg tablet 40 mg PO DAILY #90 tabs 03/20/23 03/24/23 Rx zolpidem 5 mg tablet (Ambien) 5 mg PO .QHS #30 tabs 03/20/23 03/24/23 Rx sumatriptan succinate 100 mg 100 mg PO PRN PRN Migraine 03/23/23 03/24/23 Rx tablet (Imitrex) Headache #10 tabs Laboratory Tests 03/24/23 08:13 POC Capillary Glucose 192 H mg/dl (65-105) Patient hx anesthesia problems: none Family hx anesthesia problems: none Results Review: All pre-operative results and documents have been reviewed as part of the pre-operative evaluation. [facility] Past Medical History Medical History Acute arthritis BMI 28.0-28.9,adult BMI 29.0-29.9,adult BMI 31.0-31.9,adult Carpal tunnel syndrome Diabetes Diabetes Hepatomegaly Hypertension Hypothyroidism (acquired) Migraine Mixed hyperlipidemia Psoriasis Type 2 diabetes mellitus without complications Ureteral stent present Surgical History Surgical History H/O cervical spine surgery Hx of cholecystectomy Family History Family History Father Hypertension Acute myocardial infarction Heart disease Hyperlipidemia Mother Hypertension Cerebrovascular accident Family history of diabetes mellitus in first degree relative Family history of malignant neoplasm of breast in first degree relative Acute myocardial infarction Sibling Family history of Hodgkin's lymphoma Sibling Hypertension Diabetes mellitus Social History Social History Social History: The patient is single and has no children. 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 She has never smoked. She currently lives with her sister. Her sister is her durable power immigration attorney for healthcare. Code status full code Smoking status: Never smoker Second hand tobacco smoke exposure: No Alcohol intake: never Substance use: never Substance use type: does not use Lack of Transportation: No Lack of Food: Never True Current Housing: I Have Housing Concerned About Future Housing: No Difficul
[2023-03-24] MEDS: ceFAZolin 2 GM/D5W 50 ML 2 GM/50 ML BAG IVPB (08:52)
[2023-03-24] MEDS: LIDOCAINE HCL 2% GEL UROJET 10 ML PKG MUCOUS MEM (09:02)
--- NOTE | 2023-03-24 09:30 | W.PM.PROC2 ---
Procedure Note - Detailed Date of Procedure 03/24/23 Pre-op Diagnosis Left renal stone Post-op Diagnosis Same Procedure Performed Cystoscopy, left ureteral stent removal, left ureteroscopy with laser lithotripsy and stone extraction, left retrograde pyelogram and stent replacement Surgeon Bernard Andre MD Anesthesia General Description of Procedure patient brought the operative suite was she has prepped draped in routine sterile fashion while in dorsal lithotomy position. 2% xylocaine jelly was introduced intraurethrally and systemic sedation is administered per the anesthesia department. To extent is grasped and brought to the external urethral meatus. 0.035 in glidewire was advanced in the left renal pelvis and the distal ureter was dilated with an 8 F 10 F dilator. Ureteroscopy was undertaken with a short tapered semi-rigid ureteral scope. Her 9 mm stone was impacted in the lateral wall of the distal ureter. Using a 200 micron holmium fiber with a dusting technique I fractured the stone into tiny pieces and removed all pieces with a 1.9 F disposable stone basket. I did replace a 4.8 F variable length stent after performing a retrograde pyelogram to ensure appropriate stent positioning. Patient tolerated the procedure well was taken to the recovery in good condition. Drains Yes Packing No Pathology Yes Complications No immediate complications Condition Stable Disposition PACU
[2023-03-24 09:37] VITALS: BP 168/74; PULSE 89; RESP 14; TEMP 36.6; O2SAT 98
[2023-03-24 09:48] LABS: Glucose Point of Care 190 mg/dl (65-105)
[2023-03-24 09:50] VITALS: BP 136/71; PULSE 76; RESP 12; O2SAT 93
[2023-03-24 10:05] VITALS: BP 124/69; PULSE 77; RESP 12; O2SAT 96
[2023-03-24 10:15] VITALS: BP 151/63; PULSE 81; RESP 16
[2023-03-24 10:45] VITALS: BP 142/89; PULSE 85; RESP 16
== END 2023-03-24 11:10 | disposition home or self-care (01) ==
PROVIDERS: PCP Family Medicine; Visit Provider Urology
PROC: (CPT 52352; principal; 2023-03-24 09:15)
DX: N20.1 Calculus of ureter (principal); E11.9 Type 2 diabetes mellitus without complications; I10 Essential (primary) hypertension; E78.2 Mixed hyperlipidemia; E03.9 Hypothyroidism, unspecified; R16.0 Hepatomegaly, not elsewhere classified; Z82.49 Family history of ischemic heart disease and other diseases of the circulatory system; Z79.84 Long term (current) use of oral hypoglycemic drugs
CPT/HCPCS: 52356; 74420; 82365; 82948; 88300; C1769; C2617; J0690; J1100; J2250; J2405; J2704; J3010; J7120; Q9966

== ENCOUNTER 2023-05-17 14:16 | Emergency (ER) | payer OTHER, SELFPAY ==
[2023-05-17 14:25] VITALS: BP 151/70; PULSE 87; RESP 20; TEMP 36.1; O2SAT 97
--- NOTE | 2023-05-17 14:25 | ED.URI ---
HPI - URI/Sore Throat General Chief Complaint: Upper Respiratory Infection Stated Complaint: Cough,Bilateral Ear Irritation,Bilateral Eye Time Seen by Provider: 05/17/23 14:25 Source: patient, RN notes reviewed and old records reviewed Mode of arrival: ambulatory Limitations: no limitations History of Present Illness HPI Narrative: 62-year-old female presents to the [facility] with complaints of bilateral ear pain, and cough that started Tuesday, 4 days. Took Nyquil last night Related Data Home Medications Medication Instructions Recorded Confirmed paroxetine HCl 20 mg tablet (Paxil) 20 mg PO HS 12/20/19 05/17/23 risankizumab-rzaa 150 mg/mL 150 mg subcut ONCE 10/18/22 05/17/23 subcutaneous pen injector (Skyrizi) Allergies Allergy/AdvReac Type Severity Reaction Status Date / Time prochlorperazine AdvReac Intermediate Other Verified 05/17/23 14:17 nitrofurantoin AdvReac Mild nausea/vomi Verified 05/17/23 14:17 ting Review of Systems Review of Systems: All systems reviewed & are unremarkable except as noted in HPI and below Constitutional: Constitutional: Reports no additional constitutional complaints Eyes: Eyes: Reports as per HPI ENT: Reports system reviewed and no additional complaints, except as documented Cardiovascular: Cardiovascular: Reports no additional cardiovascular complaints, Denies chest pain and Denies dyspnea Respiratory: Respiratory: Reports as per HPI, Denies chest congestion, Reports cough and Denies dyspnea Gastrointestinal: Gastrointestinal: Reports no additional gastrointestinal complaints, Denies abdominal pain, Denies nausea and Denies vomiting Musculoskeletal: Musculoskeletal: Reports no additional musculoskeletal complaints Integumentary/Breasts: Skin/Breast: Reports system reviewed and no additional complaints, except as docu Neurologic: Reports system reviewed and no additional complaints, except as documented Psychiatric: Psychiatric: Reports no additional psychiatric complaints Allergic/Immunologic: Allergic/Immunologic: Reports no additional allergic/immunologic complaints [facility] Past Medical History Medical History Acute arthritis BMI 28.0-28.9,adult BMI 29.0-29.9,adult BMI 31.0-31.9,adult Carpal tunnel syndrome Diabetes Diabetes Hepatomegaly Hypertension Hypothyroidism (acquired) Migraine Mixed hyperlipidemia Psoriasis Type 2 diabetes mellitus without complications Ureteral stent present Surgical History Surgical History H/O cervical spine surgery Hx of cholecystectomy Family History Family History Father Hypertension Acute myocardial infarction Heart disease Hyperlipidemia Mother Hypertension Cerebrovascular accident Family history of diabetes mellitus in first degree relative Family history of malignant neoplasm of breast in first degree relative Acute myocardial infarction Sibling Family history of Hodgkin's lymphoma Sibling Hypertension Diabetes mellitus Social History Social History Social History: The patient is single and has no children. 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 She has never smoked. She currently lives with her sister. Her sister is her durable power assistant attorney general for healthcare. Code status full code Smoking status: Never smoker Second hand tobacco smoke exposure: No Alcohol intake: never Substance use: never Substance use type: does not use Lack of Transportation: No Lack of Food: Never True Current Housing: I Have Housing Concerned About Future Housing: No Difficulty Paying Gas/Electric Bills: No Difficulty Paying for Meds: No Currently Unemployed: No Education: Master's Degree or Higher Difficulty w/ Childcare or Fam
== END 2023-05-17 14:36 | disposition home or self-care (01) ==
PROVIDERS: Emergency Provider Nurse Practitioner; PCP Family Medicine
DX: J06.9 Acute upper respiratory infection, unspecified (principal); H10.9 Unspecified conjunctivitis; E11.9 Type 2 diabetes mellitus without complications; I10 Essential (primary) hypertension; E03.9 Hypothyroidism, unspecified
CPT/HCPCS: 99213; G0463

== ENCOUNTER 2024-01-28 16:26 | Emergency (ER) | payer OTHER, SELFPAY ==
--- NOTE | 2024-01-28 16:28 | ED.URI ---
HPI - URI/Sore Throat General Chief Complaint: Upper Respiratory Infection Stated Complaint: cough,drainage, body aches, sinus prob Time Seen by Provider: 01/28/24 16:27 Source: patient Mode of arrival: ambulatory Limitations: no limitations History of Present Illness HPI Narrative: Marce is a 63-year-old female patient presenting to the clinic today with complaints of cough, sinus drainage, body aches, and sinus congestion x 3 days. She reports no known fever for, chest pain, or shortness of breath. Cough is productive with clear phlegm. MD elicited complaint: sore throat and nasal congestion Related Data Home Medications Medication Instructions Recorded Confirmed paroxetine HCl 20 mg tablet (Paxil) 20 mg PO HS 12/20/19 01/28/24 Allergies Allergy/AdvReac Type Severity Reaction Status Date / Time prochlorperazine AdvReac Intermediate Other Verified 01/28/24 16:40 nitrofurantoin AdvReac Mild nausea/vomi Verified 01/28/24 16:40 ting Review of Systems Review of Systems: Pertinent positives per HPI. Patient denies any fever, chills, rash, headache, visual changes, dizziness, shortness of breath, chest pain, palpitations, nausea, vomiting, diarrhea, constipation, abdominal pain, or any urinary issues. [facility] Past Medical History Medical History Acute arthritis BMI 28.0-28.9,adult BMI 29.0-29.9,adult BMI 31.0-31.9,adult Carpal tunnel syndrome Diabetes Diabetes Hepatomegaly Hypertension Hypothyroidism (acquired) Migraine Mixed hyperlipidemia Psoriasis Type 2 diabetes mellitus without complications Ureteral stent present Surgical History Surgical History H/O cervical spine surgery Hx of cholecystectomy Family History Family History Father Hypertension Acute myocardial infarction Heart disease Hyperlipidemia Mother Hypertension Cerebrovascular accident Family history of diabetes mellitus in first degree relative Family history of malignant neoplasm of breast in first degree relative Acute myocardial infarction Sibling Family history of Hodgkin's lymphoma Sibling Hypertension Diabetes mellitus Social History Social History Social History: The patient is single and has no children. 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 She has never smoked. She currently lives with her sister. Her sister is her durable power business attorney for healthcare. 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 There is no relevant family history pertinent to the patient complaint. Exam Narrative: General: Well-developed, well nourished, in no apparent distress Head: Normocephalic, atraumatic Eyes: Pupils equally round and reactive to light bilaterally, EOM intact, sclera and conjunctive clear, no discharge, lids normal Ears: TMs intact and congested, ear canals clear, no drainage, grossly hearing normal. Nose: Nares patent, clear disch
[2024-01-28 16:39] VITALS: BP 157/69; PULSE 99; RESP 18; TEMP 37; O2SAT 100
== END 2024-01-28 16:52 | disposition home or self-care (01) ==
PROVIDERS: Emergency Provider Nurse Practitioner Family; PCP Family Medicine
DX: U07.1 COVID-19 (principal); E11.9 Type 2 diabetes mellitus without complications; I10 Essential (primary) hypertension; E03.9 Hypothyroidism, unspecified; E78.2 Mixed hyperlipidemia; L40.9 Psoriasis, unspecified
CPT/HCPCS: 87426; 99213; G0463

== ENCOUNTER 2024-07-19 08:23 | Emergency (ER) | payer OTHER, SELFPAY ==
[2024-07-19 08:38] VITALS: BP 162/88; PULSE 80; RESP 18; TEMP 36.2; O2SAT 99
--- NOTE | 2024-07-19 08:47 | ED.URI ---
HPI - URI/Sore Throat General Chief Complaint: Upper Respiratory Infection Stated Complaint: sinus infection/cough Time Seen by Provider: 07/19/24 08:48 Source: patient, RN notes reviewed and old records reviewed Mode of arrival: ambulatory Limitations: no limitations History of Present Illness HPI Narrative: patient presents with complaints of sinus drainage, postnasal drip, cough for 4 days. She reports that chest feels congested. States cough has been nonproductive. She denies any shortness of breath. She reports cough is worse night. Of note, sister that she lives with has been diagnosed and treated for atypical pneumonia. Patient reports her sister symptoms began the same way. She reports they have multiple family members who have also been recently treated for atypical pneumonia. Patient took COVID test last night, reports this was negative. She denies any fevers. She does report that she is more tired than normal. She has not been taking anything for her symptoms. Related Data Home Medications ?Medication ?Instructions ?Recorded ?Confirmed ?Last Taken ?Type paroxetine HCl 20 mg tablet (Paxil) 20 mg PO HS 12/20/19 03/15/24 03/23/23 History propranolol 120 mg capsule,24 120 mg PO DAILY 03/15/24 03/15/24 Unknown History hr,extended release risankizumab-rzaa 150 mg/mL mg subcut 07/19/24 Unknown History subcutaneous pen injector (Skyrizi) Allergies Allergy/AdvReac Type Severity Reaction Status Date / Time prochlorperazine AdvReac Intermediate Other Verified 07/19/24 08:44 nitrofurantoin AdvReac Mild nausea/vomi Verified 07/19/24 08:44 ting Review of Systems Review of Systems: All systems reviewed & are unremarkable except as noted in HPI and below Constitutional: Constitutional: Reports as per HPI, Reports no additional constitutional complaints and Reports lethargy ENT: Reports system reviewed and no additional complaints, except as documented and Reports sore throat Cardiovascular: Cardiovascular: Reports no additional cardiovascular complaints Respiratory: Respiratory: Reports no additional respiratory complaints, Reports chest congestion, Reports cough and Reports pain with cough Gastrointestinal: Gastrointestinal: Reports no additional gastrointestinal complaints PMFSH Past Medical History Medical History Acute arthritis BMI 28.0-28.9,adult BMI 29.0-29.9,adult BMI 31.0-31.9,adult Carpal tunnel syndrome Diabetes Diabetes Hepatomegaly Hypertension Hypothyroidism (acquired) Migraine Mixed hyperlipidemia Psoriasis Type 2 diabetes mellitus without complications Ureteral stent present Surgical History Surgical History Hx of cholecystectomy H/O cervical spine surgery Family History Family History Father Hypertension Acute myocardial infarction Heart disease Hyperlipidemia Mother Hypertension Cerebrovascular accident Family history of diabetes mellitus in first degree relative Family history of malignant neoplasm of breast in first degree relative Acute myocardial infarction Sibling Family history of Hodgkin's lymphoma Sibling Hypertension Diabetes mellitus Social History Social History Social History: The patient is single and has no children. 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 She has never smoked. She currently lives with her sister. Her sister is her durable power commercial litigation attorney for healthcare. 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 There is no relevant family history pertinent to the patient complaint. Exam Const: General: cooperative, no acute distress, alert and awake Orientation/consciousness: oriented to person, oriented to place and oriented to time HENMT: Head: normal to inspection Ears: TM's normal bilaterally Mouth: Yes moist mucous membranes Resp: Effort & Inspection: normal respiratory effort and able to speak in complete sentences Auscultation: clear to auscultation bilaterally, no crackles, no rales, no rhonchi and no wheezes Cardio: Palpation: normal PMI Rate: regular rate Rhythm: regular rhythm Heart sounds: S1 normal heart sound present and S2 normal heart sound present Neuro: General: oriented to person, oriented to place and oriented to time Cranial nerves: Yes CN's II-XII intact bilaterally Psych: Appearance: grossly normal Thought process: Normal thought process present Insight: Good insight present (Psych) Judgement: Good judgement present (Psych) Course Course Level of Care: Express Care Visit Vital Signs Vital signs: Vital Signs Temperature 97.2 F L 07/19/24 08:38 Pulse Rate 80 07/19/24 08:38 Respiratory Rate 18 07/19/24 08:38 Blood Pressure 162/88 H 07/19/24 08:38 Pulse Oximetry 99 07/19/24 08:38 Oxygen Delivery Room Air 07/19/24 08:38 Temperature 97.2 F L 07/19/24 08:38 Pulse Rate 80 07/19/24 08:38 Respiratory Rate 18 07/19/24 08:38 Blood Pressure 162/88 H 07/19/24 08:38 Pulse Oximetry 99 07/19/24 08:38 Oxygen Delivery Room Air 07/19/24 08:38 Reviewed MDM - URI/Sore Throat MDM Narrative Medical decision making narrative: Patient with multiple exposures, 1 in the home to atypical pneumonia. Patient now with similar symptoms. Multiple comorbidities, but reassuring physical exam. Cover with doxycycline given clinical picture. Discharge instructions reviewed with patient, as well as provided in writing per nursing staff. The instructions also include specific and strict return/GO TO THE ER as well as f/u information. All questions have been answered, and the patient deny any further questions with discharge and discharge plan. Some parts of this dictation were generated by voice recognition software and may contain typographical and/or grammatical inaccuracies. Differential Diagnosis Differential diagnosis: Likely upper respiratory infection, sinusitis, viral infection and bronchitis Medical Records Attestation: I reviewed the patient's medical records. Discharge Plan Discharge Clinical Impression: Atypical pneumonia Patient Disposition: Home, Self-Care Condition: Stable Instructions: Antibiotic Form, Community Acquired Pneumonia (ED) Additional Instructions: Take all medication as prescribed. Follow-up with primary care provider. Emergency department for any new or worsening symptoms. Blood pressure today is elevated at 162/88, please discuss this with your primary care provider as soon as possible Patient Language: Serbian Prescriptions: New doxycycline hyclate 100 mg tablet 100 mg PO BID Qty: 20 0RF No Action Skyrizi 150 mg/mL pen injector SUBCUT paroxetine HCl [Paxil] 20 mg tablet 20 mg PO HS (DME) lancets Misc See Rx Instructions .Route Qty: 100 0RF Rx Instructions: As directed for glucose monitoring bid (DME) Blood Glucose Test Strip See Rx Instructions .ROUTE .MEDSUPPLY Qty: 50 0RF Rx Instructions: As directed for glucose monitoring bid (DME) blood-glucose meter Misc See Rx Instructions .ROUTE .MEDSUPPLY Qty: 1 0RF Rx Instructions: As directed for glucose monitoring bid propranolol 120 mg capsule,extended release 24hr 120 mg PO DAILY benzonatate 100 mg capsule 100 mg PO TID PRN (Reason: cough) Qty: 30 0RF sumatriptan succinate [Imitrex] 50 mg tablet See Rx Instructions PO .COMPLEX Qty: 9 2RF Rx Instructions: take 1 tab at onset of headache; if no relief may repeat 1 tab after at least 2 hrs; max = 4 tabs/24 hr PO meloxicam 15 mg tablet 15 mg PO DAILY Qty: 90 1RF sumatriptan succinate [Imitrex] 100 mg tablet See Rx Instructions PO .COMPLEX Qty: 7 2RF Rx Instructions: take 1 tab at onset of headache; if no relief, may repeat 1 tab after at least 2 hrs; max = 2 tabs/24 hrs PO zolpidem [Ambien] 5 mg tablet 5 mg PO .QHS Qty: 30 2RF simvastatin 40 mg tablet 40 mg PO DAILY Qty: 90 0RF gabapentin 300 mg capsule 300 mg PO QHS Qty: 30 2RF metformin 500 mg tablet extended release 24 hr 2,000 mg PO DAILY Qty: 360 1RF Follow-up/Referrals: Sam Holland MD [Primary Care Provider] - 1 Week Time of Disposition: 08:56
== END 2024-07-19 09:02 | disposition home or self-care (01) ==
PROVIDERS: Emergency Provider Nurse Practitioner Family; PCP Family Medicine
DX: J18.9 Pneumonia, unspecified organism (principal); E11.9 Type 2 diabetes mellitus without complications; I10 Essential (primary) hypertension; E03.9 Hypothyroidism, unspecified; E78.2 Mixed hyperlipidemia; M19.90 Unspecified osteoarthritis, unspecified site; L40.9 Psoriasis, unspecified; Z96.0 Presence of urogenital implants
CPT/HCPCS: 99213; G0463

== ENCOUNTER 2024-12-13 11:24 | Outpatient (CLI) | payer MEDICARE, SELFPAY ==
--- NOTE | ~2024-12-13 | XR_ITS ---
Left Hand Technique: PA, oblique, and lateral views were obtained. Clinical History: Other specified soft tissue disorder Findings: No acute fracture or dislocation is seen. Osseous alignment is anatomic. Joint spaces are p reserved. Soft tissues are unremarkable. Impression: Unremarkable left hand. Reviewed, dictated and finalized at location . Impression: Unremarkable left hand.
--- NOTE | ~2024-12-13 | XR_ITS ---
Right Hand Technique: PA and lateral views were obtained. Clinical History: Other specified soft tissue abnormality Findings: No acute fracture or dislocation is seen. Osseous alignment is anatomic. Joint spaces are p reserved. Soft tissues are unremarkable. Impression: Unremarkable right hand. Reviewed, dictated and finalized at location . Impression: Unremarkable right hand.
--- OUTSIDE RECORDS SUMMARY | 2024-12-13 11:51 | XMS_ITS | Clinical Summary ---
Author Organization [facility] Address [address] [place] [address] Care Team Providers Care Supervisor Vacuum Metalizing Name Role Phone Sam Holland MD Primary Care Provider Source Comments [facility],non-owned Affiliates and Associated Physician Practices is amultiple site organization consisting of ambulatory clinics and hospital sitesin [place], [place], [place] and [place]. This disclosure is being madepursuant to the Care Everywhere program and may not contain all information available regarding this patient. Last updated 18.[employer] [facility] Allergies Active Allergy Reactions Criticality Noted Date Comments Prochlorperazine 07/15/2017 Nitrofurantoin 07/15/2017 Made pt feel body and muscles aches all over Medications * Be aware that medications may not be up to date on this document. Alwaysverify current medications with the patient. Zolpidem Tartrate (AMBIEN PO) Active FOLIC ACID PO Active METFORMIN HCL PO Act luisana METHOTREXATE PO Acti ve PAROXETINE HCL PO Ac tive PROPRANOLOL HCL PO A ctive SIMVASTATIN PO Activ e SUMATRIPTAN SUCCINATE PO Active Family History Medical History Relation Name Comments CAD (Coronary Artery Disease) Father Hypertension Father Hypertension Mother Lymphoma Sister 16 years of age Relation Name Status Comments Father Mother Sister Social History Tobacco Use Types Packs/Day Years Used Date Smoking Tobacco: Never Smokeless Tobacco: Never Comments No Sex and Gender Information Value Date Recorded Sex Assigned at Not on file 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 Gender Identity Not on file Sexual Orientation Not on file Last Filed Vital Signs Vital Sign Reading Time Taken Comments Blood Pressure 126/84 02/17/2020 12:19 PM CDT Pulse 74 02/17/2020 12:19 PM CDT Temperature 36.9 C (98.5 F) 02/17/2020 12:19 PM CDT Respiratory Rate 16 02/17/2020 12:19 PM CDT Oxygen Saturation 97% 02/17/2020 12:19 PM CDT Inhaled Oxygen Concentration - - Weight 83.9 kg (185 lb) 02/17/2020 12:19 PM CDT Height 167.6 cm (5' 6) 02/17/2020 12:19 PM CDT Body Mass Index 29.86 02/17/2020 12:19 PM CDT Plan of Treatment Health Maintenance Due Date Last Done Comments BONE DENSITY TESTING 1959 COLOGUARD (AGES 45-75) - COL ON CA SCREENING 1959 COLON MONITORING 1959 COLONOSCOPY - COLON CA SCREENING 1959 CT COLONOGRAPHY - COLON CA SCREENING 1959 Colorectal Cancer Screening 1959 FIT - COLON CA SCREENING 1959 FLEX SIG - COLON CA SCREENING 1959 MAMMOGRAM 1959 PAP SMEAR 1959 HIV SCREENING 1974 HEPATITIS C SCREENING 06/07/1977 DTAP/TDAP/TD VACCINES (1 - Tdap) 1978 PNEUMOCOCCAL VACCINE 50+ (1 of 1 - PCV) 2009 ZOSTER VACCINE (1 of 2) 2009 SCREENING FOR DIABETES 02/17/2020 COVID-19 VACCINE ( - 2023-2 5 season) 2024 DEPRESSION SCREENING 08/01/2024 INFLUENZA VACCINE (Season Ended) 2025 Respiratory Syncytial Virus (RSV) Vaccine Pt: or over 60 yrs (1 - 1-dose 75+ series) 2034 HEPATITIS B VACCINE Aged Out No longe r eligible based on patient's age to complete this topic HIB VACCINE Aged Out No longer eligi ble based on patient's age to complete this topic HPV VACCINE Aged Out No longer eligi ble based on patient's age to complete this topic MENINGOCOCCAL (Group B) VACC INE SHARED DECISION-MAKING Aged Out No longer eligibl e based on patient's age to complete this topic MENINGOCOCCAL GROUPS A/C/Y/W VACCINE Aged Out No longer eligible b ased on patient's age to complete this topic Insurance [facility] Care Teams Supervisor Vacuum Metalizing Relationship Specialty Start Date End Date Sam Holland MD [address] [place] [address] PCP - General Family Medicine 07/15/17
== END 2024-12-13 11:25 | disposition home or self-care (01) ==
PROVIDERS: PCP Family Medicine; Visit Provider Nurse Practitioner Adult Health
DX: M79.89 Other specified soft tissue disorders (principal)
CPT/HCPCS: 73120

== ENCOUNTER 2025-03-05 10:30 | Outpatient (RCR) | payer MEDICARE, SELFPAY | END 2025-04-15 08:25 | disposition home or self-care (01) | LOC: ANHDMC 10:30 | PROVIDERS: PCP Family Medicine; Visit Provider Nurse Practitioner Adult Health | DX: E11.9 Type 2 diabetes mellitus without complications (principal); Z71.89 Other specified counseling | CPT/HCPCS: G0108 ==

== ENCOUNTER 2025-03-15 08:58 | Outpatient (CLI) | payer MEDICARE, SELFPAY ==
--- OUTSIDE RECORDS SUMMARY | 2025-03-15 09:04 | XMS_ITS | Clinical Summary ---
Author Organization [facility] Address [address] [place] [address] Care Team Providers Care Optician Apprentice Dispensing Name Role Phone Sam Holland MD Primary Care Provider [phone] Source Comments [facility],non-owned Affiliates and Associated Physician Practices is amultiple site organization consisting of ambulatory clinics and hospital sitesin [place], [place], [place] and [place]. This disclosure is being madepursuant to the Care Everywhere program and may not contain all information available regarding this patient. Last updated 18.[employer] [facility] Allergies Active Allergy Reactions Criticality Noted Date Comments Prochlorperazine 07/15/2017 Nitrofurantoin 07/15/2017 Made pt feel body and muscles aches all over Medications * Be aware that medications may not be up to date on this document. Alwaysverify current medications with the patient. Zolpidem Tartrate (AMBIEN PO) Active METFORMIN HCL PO Active PAROXETINE HCL PO Active PROPRANOLOL HCL PO Active SIMVASTATIN PO Activ e SUMATRIPTAN SUCCINATE PO Active gabapentin (Neurontin) 300 MG capsule TAKE 1 CAPSULE BY MOUTH EVERY DAY AT BEDTIME 5 Active Risankizumab-r zaa (SKYRIZI PEN SC) Inject subcutaneously Every 90 days Active methotrexate 2.5 MG tabletIndicati ons:Psoriatic Arthritis Take 5 (five) tablets by mouth every 7 days (once a week) Reasons: Psoriasis associated with Arthritis 20 tablet 2 5 Active folic acid (Folvite) 1 MG tabletIndicati ons:Methotrexa te, skilled nursing, current use Take 1 (one) tablet by mouth once daily Reduce the potential risk of methotrexate related side effects 30 tablet 11 Active Active Problems Problem Noted Date Diagnosed Date Psoriatic arthritis (charact erized by dactylitis of right index and left thumb) 12/18/2024 Overview (12/18/2024): Restart weekly oral methotrexate and continue use of Tremfya anti-IL 23 biologic treatment (provided complete psoriasis skin clearing but not nails). 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, skilled nursing, current use 12/18/2024 Assessment & Plan (12/18/2024 12:10 PM CDT): The patient has been counseled on risks and benefits of methotrexate use including but not limited to the risk of liver toxicity, bone marrow suppression and methotrexate induced lung injury. The patient was advised to discontinue methotrexate and called this clinic immediately if any sudden cough, fevers or dyspnea on exertion develops. CBC with differential, liver function enzymes and renal/kidney function status will be routinely checked every 8-12 weeks to screen the patient for possible developing methotrexate side effects. While receiving treatment with methotrexate the patient should avoid the use of sulfonamide containing antibiotics such as trimethoprim/sulfamethoxazole also known as Bactrim due to significant and potentially severe drug interaction related side effects. Additionally, alcohol should not be consumed while using methotrexate due to an increase risk for the possible future development of liver related side effects including liver injury such as cirrhosis. Encounters Date Type Department Care Team Description 03/13/2025 Orders Only [facility] - Rheumatology [address] [place] [address], [address] [place] [address] Sohan Cramer DO 03/08/2025 Orders Only [facility] - Rheumatology [address] [facility], [address] [place] [address] Sohan Cramer DO 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, intermediate teacher, current use 03/07/2025 Telephone [facility] - Rheumatology [address], [address] [place] [address] Rhiannon Kim MEDICATION REFILL 03/07/2025 Refill [facility] - Rheumatology [address] [place] [address], [address] [place] [address] Sohan Cramer DO MEDICATION REFILL 12/18/2024 11:20 AM CDT Office Visit [facility] - Rheumatology [address] [place] [address], [address] [place] [address] Sohan Cramer DO Psoriatic arthritis (characterized by dactylitis of right index and left thumb) (Primary Dx); 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, intermediate teacher, current use from Last 3 Months Family History Medical History Relation Name Comments CAD (Coronary Artery Disease) Father Hypertension Father Hypertension Mother Lymphoma Sister 16 years of age Relation Name Status Comments Father Mother Sister Social History Tobacco Use Types Packs/Day Years Used Date Smoking Tobacco: Never Smokeless Tobacco: Never PHQ-2 Answer Date Recorded Patient Health Questionnaire-2 Score 0 12/18/2024 Comments No Sex and Gender Information Value Date Recorded Sex Assigned at Not on file 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 Gender Identity Not on file Sexual Orientation Not on file Last Filed Vital Signs Vital Sign Reading Time Taken Comments Blood Pressure 110/70 12/18/2024 11:36 AM CDT Pulse 86 12/18/2024 11:36 AM CDT Temperature 36.1 C (97 F) 12/18/2024 11:36 AM CDT Respiratory Rate 16 12/18/2024 11:36 AM CDT Oxygen Saturation 97% 12/18/2024 11:36 AM CDT Inhaled Oxygen Concentration - - Weight 84.8 kg (187 lb) 12/18/2024 11:36 AM CDT Height 167.6 cm (5' 6) 02/17/2020 12:19 PM CDT Body Mass Index 30.18 02/17/2020 12:19 PM CDT Plan of Treatment Upcoming Encounters Date Type Department Care Team (Late st Contact Info) Description 04/18/2025 12:40 PM CDT Office Visit [facility] - Rheumatology [address] [place] [address], [address] [place] [address] Sohan Cramer DO [address] [place] [address] [address] [place] [address] Health Maintenance Due Date Last Done Comments BONE DENSITY TESTING 1959 COLOGUARD (AGES 45-75) - COLON CA SCREENING 1959 COLON MONITORING 1959 COLONOSCOPY - COLON CA SCREENING 1959 CT COLONOGRAPHY - COLON CA SCREENING 1959 Colorectal Cancer Screening 1959 FIT - COLON CA SCREENING 1959 FLEX SIG - COLON CA SCREENING 1959 MAMMOGRAM 1960 MEDICARE AWV 12 MONTHS 1959 HIV SCREENING 1974 HEPATITIS C SCREENING 06/07/1977 DTAP/TDAP/TD VACCINES (1 - Tdap) 1978 PNEUMOCOCCAL VACCINE 50+ (1 of 1 - PCV) 2009 ZOSTER VACCINE (1 of 2) 2009 COVID-19 VACCINE (4 - season) 2024 05/25/2021, 11/09/2020, 10/17/2020 INFLUENZA VACCINE (#1) 2025 9, 07/01/2018, 05/12/2017, Additional history exists Respiratory Syncytial Virus (RSV) Vaccine Pt: or over 60 yrs (1 - 1-dose 75+ series) 2034 DEPRESSION SCREENING Completed 12/18/2024 HEPATITIS B VACCINE Aged Out No longe r eligible based on patient's age to complete this topic HIB VACCINE Aged Out No longer eligi ble based on patient's age to complete this topic HPV VACCINE Aged Out No longer eligi ble based on patient's age to complete this topic MENINGOCOCCAL (Group B) VACCINE SHARED DECISION-MAKING Aged Out No longer eligible based on patient's age to complete this topic MENINGOCOCCAL GROUPS A/C/Y/W VACCINE Aged Out No longer eligible based on patient's age to complete this topic Insurance [facility] Care Teams Optician Apprentice Dispensing Relationship Specialty Start Date End Date Sam Holland MD [address] [place] [address] PCP - General Family Medicine 07/15/17
--- OUTSIDE RECORDS SUMMARY | 2025-03-15 09:04 | XMS_ITS | Patient Health Record ---
Author Organization [facility] As [facility] Address [address] [place] [address] Care Team Providers Care Handkerchief Cutter Name Role Phone Rachana Perkins Unavailable [phone] Andrew Villaseñor Unavailable [phone] Allergies Allergen (clinical drug ingredient) Drug/Non Drug Allergy documented on EMR Reaction Allergy Type Onset Date Status nitrofurantoin, macrocrystals / nitrofurantoin, monohydrate Macrobid Unknown Drug Allergy 07/19/2023 Active Compazine Unknown Drug Allergy 07/19/2023 Active Reason For Referral No Information Medications Medication SIG (Take, Route, Frequency, Duration) Notes Start Date End Date Status Propranolol HCl ER 120 MG Oral 07/19/2023 Active metFORMIN HCl ER 500 MG Oral 07/19/2023 Active PARoxetine HCl 20 MG 1 tablet in the morning Oral Once a day; Duration: 90 days Active SUMAtriptan Succinate 100 MG Oral 07/19/2023 Active Meloxicam 15 MG Oral 07/19/2023 Act luisana SUMAtriptan Succinate 50 MG Oral 07/19/2023 Active SKYRIZI 150 MG/ML SUBCUTANEOUS PEN INJECTOR *Reorder from [employer] for eRx and Interaction Alerts* 07/19/2023 Active PARoxetine HCl 20 MG TAKE 1 TABLET BY MOUTH EVERY MORNING; Duration: 30 Active Zolpidem Tartrate 5 MG Oral 07/19/2023 Active Gabapentin 300 MG Oral 07/19/2023 A ctive OneTouch Delica Plus [id number] 07/19/2023 Active Simvastatin 40 MG Oral 07/19/2023 A ctive Immunizations Vaccine Route Administration Date Status Comme nts Influenza virus vaccine, quadrivalent (IIV4), split virus, 0.25 mL dosage Unknown 04/24/2015 Administered Influenza virus vaccine, quadrivalent (IIV4), split virus, 0.25 mL dosage Unknown 07/01/2018 Administered Influenza virus vaccine, quadrivalent (IIV4), split virus, 0.25 mL dosage Unknown 04/20/2019 Administered Influenza, injectable, MDCK, preservative free Unknown 05/12/2017 Administered Influenza, seasonal, injecta ble, preservative free, 3 yrs and above Unknown 05/04/2014 Administered Novel [id number], preservative free Unknown 05/06/2016 Administered Novel [id number], preservative free Unknown 04/18/2020 Administered Pfizer Biontech Covid-19 Vac cine 2nd dose Unknown 10/17/2020 Administered Pfizer Biontech Covid-19 Vac cine 2nd dose Unknown 11/09/2020 Administered Pfizer Biontech Covid-19 Vac cine 2nd dose Unknown 05/25/2021 Administered Social History Tobacco Use: Social History Observation Description Date Details (start date - stop date) Never Smoker NA - NA Sex Assigned At : Social History Observation Description Sex Assigned At Female Tobacco Control (Standard) Question Answer Notes Tobacco use: Nonsmoker Section Notes: Lives with sister Problems Problem Type SNOMED Code ICD Code Onset Dates Problem Status W/U Status Risk Notes Problem Severe recurrent major depression without psychotic features (09994073) Major depressive disorder, recurrent severe without psychotic features (F33.2) Active confirmed Problem Generalized anxiety disorder (F41.1) Active confirmed Vital Signs Heart Rate 80 /min 10/12/2024 Height-cm 165.10 cm 10/12/2024 Blood pressure diastolic 88 mm Hg 10/12/2024 Weight-kg 83.92 kg 10/12/2024 Height 65.00 in 10/12/2024 Blood pressure systolic 135 mm Hg 10/12/2024 Weight 185 lbs 10/12/2024 BMI 30.78 kg/m2 10/12/2024 Encounters Encounter Location Date Provider Diagnosis [facility] [address] [address] 10/12/2024 Rachana Perkins Generalized anxiety disorder F41.1 ; Encounter for screening for depression Z13.31 ; Encounter for screening for cardiovascular disorders Z13.6 and Major depressive disorder, recurrent severe without psychotic features F33.2 [facility] [employer] [facility] [address] [place] [address] 10/09/2024 Andrew Villaseñor [facility] [employer] [facility] [address] [place] [address] 10/11/2024 Rachana Gregorio Assessments Encounter Date Diagnosis (ICD Code) Assessment Notes Treatment Notes Treatment Clinical Notes Section Notes 10/12/2024 Generalized anxiety disorder (ICD-10 - F41.1) 10/12/2024 Encounter for screening for depression (ICD-10 - Z13.31) 10/12/2024 Encounter for screening for cardiovascular disorders (ICD-10 - Z13.6) 10/12/2024 Major depressive disorder, recurrent severe without psychotic features (ICD-10 - F33.2) SSRI/SNRI side effects discussed including but not limited to, gastric upset, nausea, vomiting, diarrhea and/or constipation, weight changes, sexual side effects including loss of libido, increased suicidal thoughts/behavi ors in children and young adults, and serotonin syndrome. 10/12/2024 Other Stable, cont paxil 20mg daily for mood, anxiety. Patient educated on all medications including potential benefits, side effects, risks. Educated on proper dosing schedule and importance of compliance. -Assessment and treatment plan reviewed with patient. -Compliance with treatment plan importance discussed. -Discussed the risks/benefits of this medication -Discussed medication side effects. -Contact office if symptoms worsen. -Discussed that it can take up to 6-8 weeks to see full therapeutic effects of psychotropic medications. -Crisis prevention hotline 814. Plan Of Treatment Next Appt Details Provider Name:Rachana lucero, 04/12/2025 03:15:00 PM, [facility], [address], [place], [address], Insurance Providers Payer Name Payer Address Payer Phone Subscriber Number Group Number Insured Name Patient Relationship to Insured Coverage Start Date Coverage End Date [facility] [address] [address] [place] [address] [phone] [id number] BARON MAXIME Self - patient is the insured Medical (General) History Medical History History ICD Code Problems: Generalized anxiety disorder Major depression in remission Recurrent major depression in full remis lashawn Severe recurrent major depression withou t psychotic features , Surgical History Surgery Date(Month/Year) Tonsilectomy/adenoids 08/31/1964 Cataract surgery (82354) 10/27/2019 Cataract surgery (85215) 12/18/2020 Removal of gallbladder (38429) 0 Removal of gallbladder (67632) 2 Tonsilectomy/adenoids 01/28/1965
--- OUTSIDE RECORDS SUMMARY | 2025-03-15 09:04 | XMS_ITS | Encounter Summary ---
Author Organization [facility] Address [address] [place] [address] Care Team Providers Care Spot Cleaner Name Role Phone Sam Holland MD Primary Care Provider [phone] Encounter Details Date Type Department Care Team (Late Contact Info) Description 03/08/2025 Orders Only [facility] - Rheumatology [address] [place] [address] [place] [address] [place] [address] [address] [place] [address] 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, penitentiary, current use Social History Tobacco Use Types Packs/Day Years Used Date Smoking Tobacco: Never Smokeless Tobacco: Never PHQ-2 Answer Date Recorded Patient Health Questionnaire-2 Score 0 12/18/2024 Comments No Sex and Gender Information Value Date Recorded Sex Assigned at Not on file Legal Sex Female 11:09 AM BULB GRADER Gender Identity Not on file Sexual Orientation Not on file documented as of this encounter Plan of Treatment Upcoming Encounters Date Type Department Care Team (Late st Contact Info) Description 04/18/2025 12:40 PM CDT Office Visit [facility] - Rheumatology [facility] [address] [place] [address] [place] [address] [place] [address] [address] [place] [address] documented as of this encounter Visit Diagnoses Diagnosis 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, truck terminal manager, current use Encounter for long-term (current) use of other medications documented in this encounter Care Teams Spot Cleaner Relationship Specialty Start Date End Date Sam Holland MD [address] [place] [address] PCP - General Family Medicine 07/15/17 documented as of this encounter
[2025-03-15 09:35] LABS: Hematocrit 37.7 % (37.0-47.0); Hemoglobin 12.7 g/dL (12.0-15.0); Immature Granulocyte Percent A 0.3 % (0-0.5); Lymphocytes Absolute Auto 1.30 K/mm3 (0.9-3.2); Mean Corpuscular HGB Conc 33.7 g/dl (32-36); Mean Corpuscular Hemoglobin 31.4 pg (26-34); Mean Corpuscular Volume 93.1 fl (80-100); Nucleated Red Blood Cells Absolute Auto 0.000 K/mm3 (0.0-0.012); Nucleated Red Blood Cells Perc 0.0 % (0.0-0.2); Platelet Count Result 251 k/mm3 (150-375); Red Blood Count 4.05 M/mm3 (4.2-5.4); White Blood Count 6.4 K/mm3 (4.5-10.0)
[2025-03-15 10:02] LABS: Alanine Aminotransferase 22 U/L (6-35); Albumin Level 4.1 g/dL (3.5-5.1); Alkaline Phosphatase 100 U/L (38-126); Anion Gap 12 mmol/L (4-12); Aspartate Amino Transferase 28 U/L (14-36); Bilirubin,Total 0.5 mg/dL (0.2-1.3); Blood Urea Nitrogen 10 mg/dL (7-17); Calcium 8.8 mg/dL (8.4-10.2); Carbon Dioxide 22 mmol/L (22-30); Chloride 106 mmol/L (98-107); Estimated Glomerular Filt Rate > 60; Glucose 186 mg/dL (65-110); Potassium 4.1 mmol/L (3.4-5.0); Sodium 140 mmol/L (137-145); Total Protein 6.8 g/dL (6.3-8.2)
[2025-03-15 10:45] LABS: MALB Creatinine Ratio 77.1 mg/g (0-30)
== END 2025-03-15 08:59 | disposition home or self-care (01) ==
PROVIDERS: PCP Family Medicine; Referring Provider Nurse Practitioner Adult Health; Visit Provider Internal Medicine Rheumatology
DX: L40.50 Arthropathic psoriasis, unspecified (principal); E11.9 Type 2 diabetes mellitus without complications; Z79.631 Long term (current) use of antimetabolite agent
CPT/HCPCS: 36415; 80053; 82043; 85025

== ENCOUNTER 2025-04-08 13:31 | Outpatient (CLI) | payer MEDICARE, SELFPAY ==
--- OUTSIDE RECORDS SUMMARY | 2025-04-08 13:42 | XMS_ITS | Encounter Summary ---
Author Organization [facility] Address [address] [place] [address] Care Team Providers Care Nursing Unit Clerk Name Role Phone Sam Holland MD Primary Care Provider Encounter Details Date Type Department Care Team (Late Contact Info) Description 03/15/2025 Results Follow-Up [facility] - Rheumatology [address] [place] [address], [address] [place] [address] [place] [address] [place] [address] [address] [place] [address] Social History Tobacco Use Types Packs/Day Years Used Date Smoking Tobacco: Never Smokeless Tobacco: Never PHQ-2 Answer Date Recorded Patient Health Questionnaire-2 Score 0 12/18/2024 Comments No Sex and Gender Information Value Date Recorded Sex Assigned at Not on file Legal 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 Female 11:09 AM GUEST ADVISOR Gender Identity Not on file Sexual Orientation Not on file documented as of this encounter Plan of Treatment Upcoming Encounters Date Type Department Care Team (Late st Contact Info) Description 04/18/2025 12:40 PM CDT Office Visit [facility] - Rheumatology [address] [facility] [address], [address] [place] [address] [place] [address] [place] [address] [address] [place] [address] documented as of this encounter Visit Diagnoses Not on filedocumented in this encounter Care Teams Nursing Unit Clerk Relationship Specialty Start Date End Date Sam Holland MD [address] [place] [address] PCP - General Family Medicine 07/15/17 documented as of this encounter
--- OUTSIDE RECORDS SUMMARY | 2025-04-08 13:42 | XMS_ITS | Patient Health Record ---
Author Organization [facility] As [employer] [facility] Address [address] [place] [address] Care Team Providers Care Applications Specialist Name Role Phone Rachana Perkins Unavailable [phone] Andrew Villaseñor Unavailable [phone] Allergies Allergen (clinical drug ingredient) Drug/Non Drug Allergy documented on EMR Reaction Allergy Type Onset Date Status nitrofurantoin, macrocrystals / nitrofurantoin, monohydrate Macrobid Unknown Drug Allergy 07/19/2023 Active Compazine Unknown Drug Allergy 07/19/2023 Active Reason For Referral No Information Medications Medication SIG (Take, Route, Frequency, Duration) Notes Start Date End Date Status Propranolol HCl ER 120 MG Capsule Extended Release 24 Hour Oral 07/19/2023 Active metFORMIN HCl ER 500 MG Tablet Extended Release 24 Hour Oral 07/19/2023 Active PARoxetine HCl 20 MG Tablet 1 tablet in the morning Oral Once a day; Duration: 90 days Active SUMAtriptan Succinate 100 MG Tablet Oral 07/19/2023 Active Meloxicam 15 MG Tablet Oral 07/19/2023 Active SUMAtriptan Succinate 50 MG Tablet Oral 07/19/2023 Active SKYRIZI 150 MG/ML SUBCUTANEOUS PEN INJECTOR *Reorder from [employer] for eRx and Interaction Alerts* 07/19/2023 Active PARoxetine HCl 20 MG Tablet TAKE 1 TABLET BY MOUTH EVERY MORNING; Duration: 30 Active Zolpidem Tartrate 5 MG Tablet Oral 07/19/2023 Active Gabapentin 300 MG Capsule Oral 07/19/2023 Active OneTouch Delica Plus [id number] Miscellaneous 07/19/2023 Active Simvastatin 40 MG Tablet Oral 07/19/2023 Active Immunizations Vaccine Route Administration Date Status Comme [...] yrs and above Unknown 05/04/2014 Administered Novel [id number], preservative free Unknown 05/06/2016 Administered Novel Qjqhzmazx-R4X6-18, preservative free Unknown 04/18/2020 Administered Pfizer Biontech [...] History Observation Description Sex Assigned At Female Social History Miscellaneous: Social Info Question Answer Notes Advance Care Planning Advance Directive Refused to discuss advance care planning Tobacco Use: Social Info Question Answer Notes Tobacco Control (Standard) Tobacco use: Nonsmoker Additional Details Category Social Info Options Details Migrated Social History Migrated Social History Alcohol Intake: None 09/28/2018,Tobacco Years: Never smoker 09/28/2018 Section Notes: Lives with sister Problems Problem Type SNOMED Code ICD Code Onset Dates Problem Status W/U Status Risk Notes Problem Severe recurrent major depression without psychotic features (19746331) Major depressive disorder, recurrent severe without psychotic features (F33.2) Active confirmed Problem Generalized anxiety disorder (46604886) Generalized anxiety disorder (F41.1) Active confirmed Vital Signs Heart Rate 80 /min 10/12/2024 Height-cm 165.10 cm 10/12/2024 Blood pressure diastolic 88 mm Hg 10/12/2024 Weight-kg 83.92 kg 10/12/2024 Height 65.00 in 10/12/2024 Blood pressure systolic 135 mm Hg 10/12/2024 Weight 185 lbs 10/12/2024 BMI 30.78 kg/m2 10/12/2024 Encounters Encounter [facility] Date [email or web address] [place] [id number] [facility] [address] [facility] [address] [place] [address] 10/12/2024 Rachana Perkins Generalized anxiety disorder F41.1 ; Encounter for screening for depression Z13.31 ; Encounter for screening for cardiovascular disorders Z13.6 and Major depressive disorder, recurrent severe without psychotic features F33.[address] [facility] [address] [place] [address] 10/09/2024 Andrew Villaseñor [address] [facility] [address] [place] [address] 10/11/2024 Rachana Perkins Assessments Encounter Date Diagnosis (ICD Code) Assessment [...] effects of psychotropic medications. -Crisis prevention hotline 930. Plan Of Treatment Next Appt Details Provider Name:Rachana Romario lucero, 04/12/2025 03:15:00 PM, [facility], [facility] [address], [place], [address], Insurance Providers Payer Name Payer Address Payer Phone Subscriber Number Group Number Insured Name Patient Relationship to Insured Coverage Start Date Coverage End Date [employer] [address] [address] [place] [address] [phone] [id number] BARON MAXIME Self - patient is the insured Medical (General) History Medical History History ICD Code Problems: Generalized anxiety disorder Major depression in remission Recurrent major depression in full remis lashawn Severe recurrent major depression withou t psychotic features , Surgical History Surgery Date(Month/Year) Tonsilectomy/adenoids 08/31/1964 Cataract surgery (80922) 10/27/2019 Cataract surgery (37033) 12/18/2020 Removal of gallbladder (86823) 0 Removal of gallbladder (22153) 2 Tonsilectomy/adenoids 01/28/1965
--- OUTSIDE RECORDS SUMMARY | 2025-04-08 13:42 | XMS_ITS | Clinical Summary ---
Author Organization [facility] [employer] Address [address] [facility] [place] [address] Care Team Providers Care Track Worker Name Role Phone Sam Holland MD Primary Care Provider [phone] Source Comments [facility],non-owned Affiliates and Associated Physician Practices is amultiple site organization consisting of ambulatory clinics and hospital sitesin [place], [place], [place] and [place]. This disclosure is being madepursuant to the Care Everywhere program and may not contain all information available regarding this patient. Last updated 18[employer] Allergies Active Allergy Reactions Criticality Noted Date [...] CAPSULE BY MOUTH EVERY DAY AT BEDTIME 12/15/19 25 Active Risankizumab-r zaa (SKYRIZI PEN SC) Inject subcutaneously Every 90 days Active folic acid (Folvite) 1 MG tabletIndicati ons:Methotrexa te, jail, current use Take 1 (one) tablet by mouth once daily Reduce the potential risk of methotrexate related side effects 30 tablet 11 12/19/19 25 Active methotrexate 2.5 MG tabletIndicati ons:Psoriatic Arthritis Take 5 (five) tablets by mouth every 7 days (once a week) Reasons: Psoriasis associated with Arthritis 20 tablet 2 03/15/20 25 Active methotrexate 2.5 MG tabletIndicati ons:Psoriatic Arthritis Take 5 (five) tablets by mouth every 7 days (once a week) Reasons: Psoriasis associated with Arthritis 20 tablet 2 12/19/19 25 025 Discontin ued(Reord er) Active Problems Problem Noted Date Diagnosed Date Psoriatic arthritis (charact erized by dactylitis of right index and left thumb) 12/18/2024 Overview (12/18/2024): Restart weekly oral methotrexate and continue use of Tremfya anti-IL 23 biologic treatment (provided complete psoriasis skin clearing but not nails). 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, terminologist, current use 12/18/2024 Assessment & Plan (12/18/2024 [...] Encounters Date Type Department Care Team Description 03/15/2025 Orders Only [facility] - Rheumatology [facility] [facility], [address] [place] [address] Sohan Cramer DO Psoriatic arthritis (characterized by dactylitis of right index and left thumb) 03/15/2025 Results Follow-Up [facility] - Rheumatology [address] [facility], [address] [place] [address] Sohan Cramer DO 03/13/2025 Orders Only [facility] - Rheumatology [address], [address] [place] [address] Sohan Cramer DO 03/08/2025 Orders Only [facility] Rheumatology [address] [place] [address] [address], [address] [place] [address] Sohan Cramer DO 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, terminologist, current use 03/07/[address], [address] [place] [address] Rhiannon Kim MEDICATION REFILL 03/07/[address], [address] [place] [address] Sohan Cramer DO MEDICATION REFILL from Last 3 Months Family History Medical [...] on file 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 Gender Identity Not on file Sexual Orientation [...] Description 04/18/2025 12:40 PM CDT Office Visit [address], [address] [place] [address] Sohan Cramer DO [address] [place] [address] Health Maintenance Due Date Last [...] 06/07/1977 DTAP/TDAP/TD VACCINES (1 - Tdap) 1978 PAP SMEAR 1980 PNEUMOCOCCAL VACCINE 50+ (1 of 1 - PCV) 2009 ZOSTER VACCINE (1 of 2) 2009 COVID-19 VACCINE (4 - season) 2025 05/25/2021, 11/09/2020, 10/17/2020 INFLUENZA VACCINE (#1) 2025 [...] on patient's age to complete this topic Procedures Procedure Name Priority Date/Time Associated Diagnosis Comments CREATININE URINE RANDOM Routine 03/15/2025 2:08 PM CDT CREATINE URINE Routine 03/15/2025 2:07 PM CDT COMPREHENSIVE METABOLIC PANEL Routine 03/15/2025 11:22 AM CDT 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, jail, current use CBC W AUTO DIFFERENTIAL Routine 03/15/2025 11:22 AM CDT 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, terminologist, current use from Last 3 Months Results * CREATININE URINE RANDOM (03/15/2025 2:08 PM CDT) Urine URINE SPECIMEN OBTAINED BY CLEAN CATCH PROCEDURE / Unknown us Scanned Document LAB - URINE CHEMISTRY ORDERABLE S Final Result * CREATINE URINE (03/15/2025 2:07 PM CDT) Comment Comment:Entered in error. Se e Creatinine Urine Random for the results originally entered under this lab header Urine us Scanned Document LAB - URINE CHEMISTRY ORDERABLE S Edited Result - Final * COMPREHENSIVE METABOLIC PANEL (03/15/2025 11:22 AM CDT) Blood BLOOD SPECIMEN / Unknown Sohan Cramer DO LAB - CHEMISTRY ORDERABLES Final Result OTHER LAB * CBC WITH DIFFERENTIAL (03/15/2025 11:22 AM CDT) Blood BLOOD SPECIMEN / Unknown [facility] Sohan Cramer DO LAB - HEMATOLOGY ORDERABLES Missy l Result OTHER LAB from Last 3 Months Insurance [facility] MEDICARE [facility] CARE Care Teams Track Worker Relationship Specialty Start Date End Date Sam Holland MD [address] [place] [address] PCP - General Family Medicine 07/15/17
== END 2025-04-08 13:32 | disposition home or self-care (01) ==
PROVIDERS: PCP Family Medicine
DX: Z79.899 Other long term (current) drug therapy (principal)
CPT/HCPCS: 86480

== ENCOUNTER 2025-06-06 14:15 | Outpatient (RCR) | payer MEDICARE, SELFPAY | END 2025-07-15 13:52 | disposition home or self-care (01) | LOC: ANHDMC 14:15 | PROVIDERS: PCP Family Medicine; Visit Provider Nurse Practitioner Adult Health | DX: E11.65 Type 2 diabetes mellitus with hyperglycemia (principal); Z71.89 Other specified counseling; Z71.3 Dietary counseling and surveillance | CPT/HCPCS: G0108 ==

== ENCOUNTER 2025-07-23 12:49 | Outpatient (CLI) | payer MEDICARE, SELFPAY ==
--- OUTSIDE RECORDS SUMMARY | 2025-07-23 12:54 | XMS_ITS | Encounter Summary ---
Author Organization [facility] Address [facility] [facility] [place] [address] Care Team Providers Care Watch Dial Maker Name Role Phone Sam Holland MD Primary Care Provider [phone] Reason for Visit * Reason Onset Date Comments Refill Request 07/23/2025 Encounter Details Date Type Department Care Team (Late st Contact Info) Description 07/23/2025 Refill [facility] - Rheumatology [address] [facility], [address] [place] [address] Sohan Cramer DO [address] [employer] [address] [employer] [address] [place] [address] Refill Request Social History Tobacco Use Types Packs/Day Years Used Date Smoking Tobacco: Never Smokeless Tobacco: Never PHQ-2 Answer Date Recorded Patient Health Questionnaire-2 Score 0 06/18/2025 Comments No Sex and Gender Information Value Date Recorded Sex Assigned at Not on file Legal Sex Female 11:09 AM PROCESS PROJECT ENGINEER Gender Identity Not on file Sexual Orientation Not on file documented as of this encounter Miscellaneous Notes * Telephone Encounter - Sohan Cramer DO - 07/23/2025 10:33 AM CST Last available outside lab testing results dated 03/15/2025 however has not had any further routineminimum Q 12 week methotrexate monitoring lab performed in order to provide review hand appropriaterefill of methotrexate. Likely will miss 1 week of methotrexate injection until lab can be collected, results reviewed, and if without abnormality appropriate refill approved. ESS PROJECT ENGINEER * Telephone Encounter - Rimma Jimenez LPN - 07/23/2025 10:22 AM PROCESS PROJECT ENGINEER Patient chart, labs and allergies reviewed and medication refilled per encounter on 06/09/25. Patient made aware of need for labs, will get done today. Patient reports out of medication and due for next shot tomorrow, 07/24/25. NON-BIOLOGIC REFILL REQUEST Last OV: 06/18/2025 Next Appointment: 09/16/2025 Last Fill: 06/09/25 No results for input(s): WBC, HGB, PLTCOUNT, MCV in the last 60737 hours. No results for input(s): CREATININE, BUN, SODIUM, POTASSIUM in the last 02744 hours. No results for input(s): EGFR, EGFRAFR in the last 31230 hours. No results for input(s): AST, ALT, ALKPHOS, TBIL in the last 55550 hours. No results for input(s): [id number] in the last 64799 hours. No results for input(s): URICACID in the last 38799 hours. Last ESR: No results for input(s): SEDRATE in the last 75156 hours. Last 3 CRP: No results for input(s): CRP in the last 30641 hours. Last Eye exam (if refill for hydroxychloroquine): N/A ESS PROJECT ENGINEER documented in this encounter Plan of Treatment Upcoming Encounters Date Type Department Care Team (Late st Contact Info) Description 09/16/2025 12:40 PM PROCESS PROJECT ENGINEER Office Visit [facility] - Rheumatology [address] [facility], [address] [place] [address] Sohan Cramer DO [address] [facility] [address] [place] [address] documented as of this encounter Visit Diagnoses Diagnosis Psoriatic arthritis (HCC) Psoriatic arthropathy documented in this encounter Care Teams Watch Dial Maker Relationship Specialty Start Date End Date Sam Holland MD [address] [place] [address] PCP - General Family Medicine 07/15/17 documented as of this encounter
--- OUTSIDE RECORDS SUMMARY | 2025-07-23 12:54 | XMS_ITS | Patient Health Record ---
Author Organization [facility] [employer] [facility] Address [address] [place] [address] Care Team Providers Care Assembler And Tester Electronics Name Role Phone Amalia KIM, Sam Primary Care Provider UnavailRachana Gonzales Unavailable [phone] Andrew Villaseñor Unavailable [phone] Allergies Allergen (clinical drug ingredient) Drug/Non Drug Allergy documented on EMR Reaction Allergy Type Onset Date Status nitrofurantoin, macrocrystals / nitrofurantoin, monohydrate Macrobid Unknown Drug Allergy 07/19/2023 Active Compazine Unknown Drug Allergy 07/19/2023 Active Reason For Referral No Information Medications Medication SIG (Take, Route, Frequency, Duration) Notes Start Date End Date Status metFORMIN HCl ER 500 MG Tablet Extended Release 24 Hour Oral 07/19/2023 Active Propranolol HCl ER 120 MG Capsule Extended Release 24 Hour Oral 07/19/2023 Active Simvastatin 40 MG Tablet Oral 07/19/2023 Active OneTouch Delica Plus [id number] Miscellaneous 07/19/2023 Active SKYRIZI 150 MG/ML SUBCUTANEOUS PEN INJECTOR *Reorder from [facility] for eRx and Interaction Alerts* 07/19/2023 Active SUMAtriptan Succinate 50 MG Tablet Oral 07/19/2023 Active SUMAtriptan Succinate 100 MG Tablet Oral 07/19/2023 Active Meloxicam 15 MG Tablet Oral 07/19/2023 Not-Taking Gabapentin 300 MG Capsule Oral 07/19/2023 Active PARoxetine HCl 20 MG Tablet TAKE 1 TABLET BY MOUTH EVERY MORNING; Duration: 30 Active PARoxetine HCl 20 MG Tablet 1 tablet in the morning Oral Once a day; Duration: 90 days 04/12/2025 Active Zolpidem Tartrate 5 MG Tablet Oral 07/19/2023 Active Immunizations Vaccine [...] yrs and above Unknown 05/04/2014 Administered Novel [id number], preservative free Unknown 05/06/2016 Administered Novel [id number]-[id number], preservative free Unknown 04/18/2020 Administered Pfizer Biontech [...] smoker 09/28/2018 Section Notes: Lives with sister Lives with sister Problems Problem Type SNOMED Code ICD Code Onset Dates Problem Status W/U Status Risk Notes Problem Severe recurrent major depression without psychotic features (66830172) Major depressive disorder, recurrent severe without psychotic features (F33.2) Active confirmed Problem Generalized anxiety disorder (21957779) Generalized anxiety disorder (F41.1) Active confirmed Vital Signs Heart Rate 80 /min 04/12/2025 Height-cm 165.1 cm 04/12/2025 Blood pressure diastolic 79 mm Hg 04/12/2025 Weight-kg 81.65 kg 04/12/2025 Height 65.00 in 04/12/2025 Blood pressure systolic 127 mm Hg 04/12/2025 Weight 180 lbs 04/12/2025 BMI 29.95 kg/m2 04/12/2025 Encounters Encounter Location Date Provider [facility] [place] [address] [facility] [address] [place] [address] 10/12/2024 Rachana Perkins Generalized anxiety disorder F41.1 ; Encounter for screening for depression Z13.31 ; Encounter for screening for cardiovascular disorders Z13.6 and Major depressive disorder, recurrent severe without psychotic features F33.2 [facility] [place] [address] [facility] [address] [place] [address] 04/12/2025 Rachana Perkins Generalized anxiety disorder F41.1 and Major depressive disorder, recurrent severe without psychotic features F33.2 [place] [address] [facility] [address] [place] [address] 10/09/2024 Andrew Villaseñor [place] [address] [facility] [address] [place] [address] 10/11/2024 Rachana Perkins Assessments Encounter Date Diagnosis (ICD Code) Assessment Notes Treatment Notes Treatment Clinical Notes Section Notes 10/12/2024 Generalized anxiety disorder (ICD-10 - F41.1) 04/12/2025 Generalized anxiety disorder (ICD-10 - F41.1) 10/12/2024 Encounter for screening for depression (ICD-10 - Z13.31) 04/12/2025 Major depressive disorder, recurrent severe without psychotic features (ICD-10 - F33.2) SSRI/SNRI side effects discussed including but not limited to, gastric upset, nausea, vomiting, diarrhea and/or constipation, weight changes, sexual side effects including loss of libido, increased suicidal thoughts/behavi ors in children and young adults, and serotonin syndrome. 10/12/2024 Encounter for screening for cardiovascular disorders [...] effects of psychotropic medications. -Crisis prevention hotline 988. 04/12/2025 Other Stable on current medication regimen, continue at current doses. -Refills sent in today -No concerns today Patient educated on all medications including potential [...] effects of psychotropic medications. -Crisis prevention hotline 988. Plan Of Treatment Next Appt Details Provider Name:Rachana lucero, 10/23/2025 10:00:00 AM, [address], [facility] [address], [place], [address], Insurance Providers Payer Name Payer Address Payer Phone Subscriber Number Group Number Insured Name Patient Relationship to Insured Coverage Start Date Coverage End Date Medicare-I l Medicare [address] [place] [phone] [id number] MAXIME DRAPER Self - patient is the insured Medical (General) History Medical History History ICD Code Problems: Generalized anxiety disorder Major depression in remission Recurrent major depression in full remis lashawn Severe recurrent major depression withou t psychotic features , Surgical History Surgery Date(Month/Year) Tonsilectomy/adenoids 08/31/1964 Cataract surgery (05003) 10/27/2019 Cataract surgery (48062) 12/18/2020 Removal of gallbladder (43419) 0 Removal of gallbladder (86880) 2 Tonsilectomy/adenoids 01/28/1965
--- OUTSIDE RECORDS SUMMARY | 2025-07-23 12:54 | XMS_ITS | Clinical Summary ---
Author Organization [facility] [employer] Address [address] [place] [address] Care Team Providers Care Manager Floor Name Role Phone Sam Holland MD Primary Care Provider [phone] Source Comments [facility] [employer],non-owned Affiliates and Associated Physician Practices is amultiple site organization consisting of ambulatory clinics and hospital sitesin [place], [place], [place] and [place]. This disclosure is being madepursuant to the Care Everywhere program and may not contain all information available regarding this patient. Last updated 18.[facility] [employer] Allergies Active Allergy Reactions Criticality Noted Date Comments Prochlorperazine 07/15/2017 Dust Mite Extract Unknown 04/18/2025 Nitrofurantoin 07/15/2017 Made pt feel body and [...] acid (Folvite) 1 MG tabletIndicati ons:Methotrexa te, fdc, current use Take 1 (one) tablet by mouth once daily Reduce the potential risk of methotrexate related side effects 30 tablet 11 5 Active insulin syringe-needle (Bd Ultrafine) 29G X 1/2 1 ML syringeIndicat ions:Psoriatic arthritis (HCC) 1 (one) Each every 7 days (once a week) Use for weekly subcutaneous methotrexate injections each Tuesday 12 Each 5 Active 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 Sodium (methotrexate, PF AND NON-PF,) 25 MG/ML injectionIndic ations:Psoriat ic arthritis Inject 1 mL subcutaneously every 7 days (once a week) Reasons: Psoriatic arthritis 5 Active Active Problems Problem Noted Date Diagnosed Date Psoriatic arthritis (charact erized by dactylitis of right index and left thumb) 12/18/2024 Overview (12/18/2024): Restart weekly oral methotrexate and continue use of Tremfya anti-IL 23 biologic treatment (provided complete psoriasis skin clearing but not nails). Assessment & Plan (06/18/2025 1:22 PM CONCRETE BUCKET UNLOADER): Managed by rheumatology Persistent pain and swelling still localizing to the left thumb somewhat diffusely but has not worsened and consistent with psoriatic arthritis although also seems to be identifying both left greater than right basilar thumb 1st CMC joint arthralgia more likely consistent with primary osteoarthritis rather than psoriatic arthritis. Will continue to maintain methotrexate at current dose adjusted to 25 mg sc Q 7 days and reassess clinically again in 3 months. Assessment & Plan (04/18/2025 1:04 PM CDT): Managed by rheumatology Sustained inflammatory dactylitis of right index and left thumb and progressive toe joint deformities despite recent restart of weekly oral methotrexate. Will transition to use of weekly subcutaneously injectable methotrexate starting Tuesday04/24/2025 at a dose of 17.5 mg (0.7 ml) and if not improved in 4 doses to increase to 25 mg (1 ml) once weekly. 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, terminal press operator, current use 12/18/2024 Assessment & Plan (04/18/2025 1:11 PM CDT): No findings suggest developing side effects from the use of methotrexate. Continue current treatment plan and recommend routine repeated monitoring laboratory testing every 12 weeks for continued safe use of this medication. Encouraged to continue daily folic acid supplementation at a minimum of 1 mg daily to reduce potential for possible methotrexate related side effects. Assessment & Plan (12/18/2024 12:10 PM CDT): [...] Encounters Date Type Department Care Team Description 07/23/2025 Refill [facility] - Rheumatology [address] [place] [address], [address] [place] [address] Sohan Cramer DO Refill Request 06/18/2025 1:00 PM CONCRETE BUCKET UNLOADER Office Visit [facility] - Rheumatology [address] [place] [address], [address] [place] [address] Sohan Cramer DO Psoriatic arthritis (HCC) (Primary Dx); 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, terminal press operator, current use 05/31/2025 Orders Only [facility] - Rheumatology [address] [place] [address], [address] [place] [address] Sohan Cramer DO 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, fdc, current use 04/24/2025 Telephone [facility] - Rheumatology [address] [place] [address], [address] [place] [address] Sohan Cramer DO Update from Last 3 Months Family History Medical History Relation Name Comments CAD (Coronary Artery Disease) Father Hypertension Father Hypertension Mother Lymphoma Sister 16 years of age Relation Name Status Comments Father Mother Sister Social History Tobacco Use Types Packs/Day Years Used Date Smoking Tobacco: Never Smokeless Tobacco: Never Tobacco Cessation:Counseling Given: Not Answered PHQ-2 Answer Date Recorded Patient Health Questionnaire-2 Score 0 06/18/2025 Comments No Sex and Gender Information Value Date Recorded Sex Assigned at Not on file Legal Sex Female 11:09 AM CONCRETE BUCKET UNLOADER Gender Identity Not on file Sexual Orientation Not on file Last Filed Vital Signs Vital Sign Reading Time Taken Comments Blood Pressure 118/66 06/18/2025 12:49 PM CONCRETE BUCKET UNLOADER Pulse 84 06/18/2025 12:49 PM CONCRETE BUCKET UNLOADER Temperature 36.1 C (97 F) 06/18/2025 12:49 PM CONCRETE BUCKET UNLOADER Respiratory Rate 16 06/18/2025 12:49 PM CONCRETE BUCKET UNLOADER Oxygen Saturation 98% 06/18/2025 12:49 PM CONCRETE BUCKET UNLOADER Inhaled Oxygen Concentration - - Weight 80.7 kg (178 lb) 06/18/2025 12:49 PM CONCRETE BUCKET UNLOADER Height 167.6 cm (5' 6) 02/17/2020 12:19 PM CDT Body Mass Index 28.73 02/17/2020 12:19 PM CDT Plan of Treatment Upcoming Encounters Date Type Department Care Team (Late st Contact Info) Description 09/16/2025 12:40 PM CONCRETE BUCKET UNLOADER Office Visit [facility] - Rheumatology [address], [address] [place] [address] Sohan Cramer, [address] [place] [address] Health Maintenance Due Date Last Done Comments BONE DENSITY TESTING 1959 COLOGUARD (AGES 45-75) - COLON CA SCREENING 1959 COLON MONITORING 1959 COLONOSCOPY - COLON CA SCREENING 1959 CT COLONOGRAPHY - COLON CA SCREENING 1959 Colorectal Cancer Screening 1959 FIT - COLON CA SCREENING 1959 FLEX SIG - COLON CA SCREENING 1959 MAMMOGRAM 1959 MEDICARE AWV 12 MONTHS 1959 HEPATITIS C SCREENING 06/07/1977 DTAP/TDAP/TD VACCINES (1 - Tdap) 1978 PNEUMOCOCCAL VACCINE 50+ (1 of 1 - PCV) 2009 Respiratory Syncytial Virus (RSV) Vaccine Pt: or over 60 yrs (1 - Risk 50-74 years 1-dose series) 2009 ZOSTER VACCINE (1 of 2) 2009 COVID-19 VACCINE ( season) 2025 05/25/2021, 11/09/2020, 10/17/2020 INFLUENZA VACCINE (#1) 2025 , 05/12/2022, 04/17/2021, Additional history exists DEPRESSION SCREENING Completed 12/18/2024 HEPATITIS B VACCINE [...] patient's age to complete this topic Insurance MEDICARE [id number] [place] [address] CARE [facility] Care Teams Manager Floor Relationship Specialty Start Date End Date Sam Holland MD [address] [place] [address] PCP - General Family Medicine 07/15/17
[2025-07-23 13:07] LABS: Hematocrit 38.0 % (37.0-47.0); Hemoglobin 12.5 g/dL (12.0-15.0); Immature Granulocyte Percent A 0.4 % (0-0.5); Lymphocytes Absolute Auto 1.22 K/mm3 (0.9-3.2); Mean Corpuscular HGB Conc 32.9 g/dl (32-36); Mean Corpuscular Hemoglobin 30.2 pg (26-34); Mean Corpuscular Volume 91.8 fl (80-100); Nucleated Red Blood Cells Absolute Auto 0.000 K/mm3 (0.0-0.012); Nucleated Red Blood Cells Perc 0.0 % (0.0-0.2); Platelet Count Result 234 k/mm3 (150-375); Red Blood Count 4.14 M/mm3 (4.2-5.4); White Blood Count 4.8 K/mm3 (4.5-10.0)
[2025-07-23 13:32] LABS: Alanine Aminotransferase 35 U/L (6-35); Albumin Level 4.2 g/dL (3.5-5.1); Alkaline Phosphatase 118 U/L (38-126); Anion Gap 10 mmol/L (4-12); Aspartate Amino Transferase 42 U/L (14-36); Bilirubin,Total 0.5 mg/dL (0.2-1.3); Blood Urea Nitrogen 18 mg/dL (7-17); Calcium 8.9 mg/dL (8.4-10.2); Carbon Dioxide 25 mmol/L (22-30); Chloride 103 mmol/L (98-107); Estimated Glomerular Filt Rate > 60; Glucose 186 mg/dL (65-110); Potassium 3.9 mmol/L (3.4-5.0); Sodium 138 mmol/L (137-145); Total Protein 7.1 g/dL (6.3-8.2)
== END 2025-07-23 12:50 | disposition home or self-care (01) ==
LOC: ANHLAB 12:51
PROVIDERS: PCP Family Medicine; Visit Provider Internal Medicine Rheumatology
DX: Z51.81 Encounter for therapeutic drug level monitoring (principal); Z79.631 Long term (current) use of antimetabolite agent
CPT/HCPCS: 36415; 80053; 85025

== ENCOUNTER 2025-07-31 11:35 | Outpatient (CLI) | payer MEDICARE, SELFPAY ==
--- OUTSIDE RECORDS SUMMARY | 2025-07-31 11:52 | XMS_ITS | Encounter Summary ---
Author Organization [facility] Address [address] [place], [place] [address] [address] Care Team Providers Care Traffic Engineering Director Name Role Phone Sam Holland MD Primary Care Provider [phone] Encounter Details Date Type Department Care Team (Late Contact Info) Description 07/24/2025 Results Follow-Up [facility] - Rheumatology [address], [address] [place] [address] Sohan Cramer DO [address] [place] [address] Social History Tobacco Use Types Packs/Day Years Used Date Smoking Tobacco: Never Smokeless Tobacco: Never PHQ-2 Answer Date Recorded Patient Health Questionnaire-2 Score 0 06/18/2025 Comments No Sex and Gender Information Value Date Recorded Sex Assigned at Not on file Legal Sex Female 11:09 AM MACHINE STEMMER Gender Identity Not on file Sexual Orientation Not on file documented as of this encounter Plan of Treatment Upcoming Encounters Date Type Department Care Team (Late Contact Info) Description 09/16/2025 12:40 PM MACHINE STEMMER Office Visit [facility] - Rheumatology [address], [address] [place] [address] Sohan Cramer DO [address] [place] [address] documented as of this encounter Visit Diagnoses Not on filedocumented in this encounter Care Teams Traffic Engineering Director Relationship Specialty Start Date End Date Sam Holland MD [address] [place] [address] PCP - General Family Medicine 07/15/17 documented as of this encounter
--- OUTSIDE RECORDS SUMMARY | 2025-07-31 11:52 | XMS_ITS | Patient Health Record ---
Author Organization [facility] [employer] [facility] Address [address] [place] [address] Care Team Providers Care Coronary Clinical Specialist Name Role Phone Amalia KIM, Sam Primary Care Provider UnavailRachana Gonzales Unavailable [phone] Andrew Villaseñor Unavailable [phone] Allergies Allergen (clinical drug ingredient) Drug/Non Drug [...] Tablet Oral 07/19/2023 Active OneTouch Delica Plus [id number] Miscellaneous 07/19/2023 Active SKYRIZI 150 MG/ML SUBCUTANEOUS PEN INJECTOR *Reorder from [facility] for eRx and Interaction Alerts* 07/19/2023 Active [...] yrs and above Unknown 05/04/2014 Administered Novel [id number]-[id number], preservative free Unknown 05/06/2016 Administered Novel [id number]-[id number], preservative free Unknown 04/18/2020 Administered Pfizer Biontech [...] Severe recurrent major depression without psychotic features (09589564) Major depressive disorder, recurrent severe without psychotic features (F33.2) Active confirmed Problem Generalized anxiety disorder (11184176) Generalized anxiety disorder (F41.1) Active confirmed Vital Signs Heart Rate 80 /min 04/12/2025 Height-cm 165.1 cm 04/12/2025 Blood pressure diastolic 79 mm Hg 04/12/2025 Weight-kg 81.65 kg 04/12/2025 Height 65.00 in 04/12/2025 Blood pressure systolic 127 mm Hg 04/12/2025 Weight 180 lbs 04/12/2025 BMI 29.95 kg/m2 04/12/2025 Encounters Encounter Location Date Provider Diagnosis [facility] [place] [address] [facility] [address] [place] [address] 10/12/2024 Rachana Perkins Generalized anxiety disorder F41.1 ; Encounter for screening for depression Z13.31 ; Encounter for screening for cardiovascular disorders Z13.6 and Major depressive disorder, recurrent severe without psychotic features F33.2 [facility] [place] [address] [facility] [address] [place] [address] 04/12/2025 Rachana Perkins Generalized anxiety disorder F41.1 and Major depressive disorder, recurrent severe without psychotic features F33.2 [place] [address] [facility] [address] [place] [address] 10/09/2024 Andrew Villaseñor [place] [address] [facility] [address] [place] [address] 10/11/2024 Rachana Perkins Assessments Encounter Date Diagnosis [...] 10/23/2025 10:00:00 AM, [address], [facility] [address], [place], [address], Insurance Providers Payer Name Payer Address Payer Phone Subscriber Number Group Number Insured Name Patient Relationship to Insured Coverage Start Date Coverage End Date Medicare-I l Medicare [address] [place] [phone] [id number] MAXIME DRAPER Self - patient is the insured Medical (General) History Medical History History ICD Code Problems: Generalized anxiety disorder Major depression in remission Recurrent major depression in full remis lashawn Severe recurrent major depression withou t psychotic features , Surgical History Surgery Date(Month/Year) Tonsilectomy/adenoids 08/31/1964 Cataract surgery (99656) 10/27/2019 Cataract surgery (82876) 12/18/2020 Removal of gallbladder (28305) 0 Removal of gallbladder (12905) 2 Tonsilectomy/adenoids 01/28/1965
--- OUTSIDE RECORDS SUMMARY | 2025-07-31 11:52 | XMS_ITS | Clinical Summary ---
Author Organization [facility] [employer] Address [address] [place] [address] Care Team Providers Care Iron Piler Name Role Phone Sam Holland MD Primary Care Provider [phone] Source Comments [facility] [employer],non-owned Affiliates and Associated Physician Practices is amultiple site organization consisting of ambulatory clinics and hospital sitesin [place], [place], [place] and [place]. This disclosure is being madepursuant to the Care Everywhere program and may not contain all information available regarding this patient. Last updated 18.[facility] [employer] Allergies Active Allergy Reactions Criticality Noted Date [...] acid (Folvite) 1 MG tabletIndicati ons:Methotrexa te, alf, current use Take 1 (one) tablet by mouth once daily Reduce the potential risk of methotrexate related side effects 30 tablet 11 12/19/19 25 Active insulin syringe-needle (Bd Ultrafine) 29G X 1/2 1 ML syringeIndicat ions:Psoriatic arthritis (HCC) 1 (one) Each every 7 days (once a week) Use for weekly subcutaneous methotrexate injections each Tuesday 12 Each 3 04/24/20 25 Active 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 Sodium (methotrexate, PF AND NON-PF,) 25 MG/ML injectionIndic ations:Psoriat ic arthritis Inject 1 mL subcutaneously every 7 days (once a week) Reasons: Psoriatic arthritis 12 mL 07/24/20 25 Active 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 Sodium (methotrexate, PF AND NON-PF,) 25 MG/ML injectionIndic ations:Psoriat ic arthritis Inject 1 mL subcutaneously every 7 days (once a week) Reasons: Psoriatic arthritis 06/18/20 25 025 Discontin ued(Reord er) Active Problems Problem Noted Date Diagnosed Date Psoriatic arthritis (charact erized by dactylitis of right index and left thumb) 12/18/2024 Overview (12/18/2024): Restart weekly oral methotrexate and continue use of Tremfya anti-IL 23 biologic treatment (provided complete psoriasis skin clearing but not nails). Assessment & Plan (06/18/2025 1:22 PM HOSPICE VOLUNTEER COORDINATOR): Managed by rheumatology Persistent pain and swelling [...] 25 mg (1 ml) once weekly. 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, alf, current use 12/18/2024 Assessment & Plan (04/18/2025 [...] Encounters Date Type Department Care Team Description 07/24/2025 Results Follow-Up [facility] - Rheumatology [address] [place] [address], [address] [address] Sohan Cramer DO 07/23/2025 Refill [facility] - Rheumatology [address] [place] [address], [address] [place] [address] Sohan Cramer DO Refill Request 06/18/2025 1:00 PM HOSPICE VOLUNTEER COORDINATOR Office Visit [facility] - Rheumatology [address] [place] [address], [address] [place] [address] Sohan Cramer DO Psoriatic arthritis (HCC) (Primary Dx); 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, local company intermodal truck driver, current use 05/31/2025 Orders Only [facility] - Rheumatology [address] [place] [address], [address] [place] [address] Sohan Cramer DO 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, alf, current use from Last 3 Months Family [...] on file Legal Sex Female 11:09 AM HOSPICE VOLUNTEER COORDINATOR Gender Identity Not on file Sexual Orientation Not on file Last Filed Vital Signs Vital Sign Reading Time Taken Comments Blood Pressure 118/66 06/18/2025 12:49 PM HOSPICE VOLUNTEER COORDINATOR Pulse 84 06/18/2025 12:49 PM HOSPICE VOLUNTEER COORDINATOR Temperature 36.1 C (97 F) 06/18/2025 12:49 PM HOSPICE VOLUNTEER COORDINATOR Respiratory Rate 16 06/18/2025 12:49 PM HOSPICE VOLUNTEER COORDINATOR Oxygen Saturation 98% 06/18/2025 12:49 PM HOSPICE VOLUNTEER COORDINATOR Inhaled Oxygen Concentration - - Weight 80.7 kg (178 lb) 06/18/2025 12:49 PM HOSPICE VOLUNTEER COORDINATOR Height 167.6 cm (5' 6) 02/17/2020 12:19 PM CDT Body Mass Index 28.73 02/17/2020 12:19 PM CDT Plan of Treatment Upcoming Encounters Date Type Department Care Team (Late st Contact Info) Description 09/16/2025 12:40 PM HOSPICE VOLUNTEER COORDINATOR Office Visit [facility] - Rheumatology [address], [address] [place] [address] Sohan Cramer DO [address] [facility] [place] [address] Health Maintenance Due Date Last [...] of 2) 2009 COVID-19 VACCINE (4 - 2024- season) 2025 05/25/2021, 11/09/2020, 10/17/2020 INFLUENZA VACCINE (#1) 2025 3, 05/12/2022, 04/17/2021, Additional history exists DEPRESSION SCREENING [...] Procedure Name Priority Date/Time Associated Diagnosis Comments COMPREHENSIVE METABOLIC PANEL Routine 07/23/2025 9:56 AM HOSPICE VOLUNTEER COORDINATOR 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, alf, current use CBC W AUTO DIFFERENTIAL Routine 07/23/2025 9:56 AM HOSPICE VOLUNTEER COORDINATOR 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, local company intermodal truck driver, current use from Last 3 Months Results * CBC WITH DIFFERENTIAL (07/23/2025 9:56 AM HOSPICE VOLUNTEER COORDINATOR) Blood BLOOD SPECIMEN / Unknown us Sohan Cramer DO LAB - HEMATOLOGY ORDERABLES Missy l Result OTHER LAB * COMPREHENSIVE METABOLIC PANEL (07/23/2025 9:56 AM HOSPICE VOLUNTEER COORDINATOR) Blood BLOOD SPECIMEN / Unknown us Sohan Cramer DO LAB - CHEMISTRY ORDERABLES Final Result OTHER LAB from Last 3 Months Insurance [facility] MEDICARE [facility] C[facility] Care Teams Iron Piler Relationship Specialty Start Date End Date Sam Holland MD [address] [place] [address] PCP - General Family Medicine 07/15/17
[2025-07-31 12:48] LABS: Cholesterol 135 mg/dL (0-200); HDL Direct 33 mg/dL; Triglycerides 196 mg/dL (<150)
== END 2025-07-31 11:36 | disposition home or self-care (01) ==
LOC: ANHLAB 11:36
PROVIDERS: PCP Family Medicine; Visit Provider Nurse Practitioner Adult Health
DX: E78.2 Mixed hyperlipidemia (principal)
CPT/HCPCS: 36415; 80061